=== PATIENT | female | born 1925 | race Caucasian/White ===

== ENCOUNTER 2016-08-05 02:16 | Inpatient (IN) | payer MEDICARE, OTHER ==
[2016-08-05] MEDS ORDERED: Sodium Chloride 0.9% 10 ML Syringe FLUSH PRN (02:32)
[2016-08-05] MEDS ORDERED: Ondansetron 4 MG/2 ML SDV IVPUSH ONE (02:32)
[2016-08-05] MEDS ORDERED: HYDROmorphone 0.5 MG/0.5 ML Syringe IVPUSH ONE ×2 (02:34→06:21)
[2016-08-05] MEDS: Sodium Chloride 0.9% 1,000 ML IV SCH ×2 (02:48→11:34)
--- NOTE | 2016-08-05 03:46 | EDM.PDOC ---
ED HPI GI/ABDOMINAL - General Chief Complaint: Abdominal Pain Stated Complaint: [facility] Time Seen by Provider: 08/05/16 02:19 Source of Information: Reports: Patient, EMS, Family, care home records History Limitations: Reports: No limitations - History of Present Illness INITIAL COMMENTS - FREE TEXT/NARRATIVE: The patient presents with abdominal pain that started about 3 days ago. It comes and it goes. She has some nausea with it. It is on the right side. She has no diarrhea. She has no dysuria. She has no fever, chills, cough, congestion, chest pain or shortness of breath. The patient had a small bowel obstruction and perforation that did not require surgery in March of last year. Timing/Duration: Reports: Day(s): (3) Location: [facility] Quality: Reports: stabbing Severity: moderate Context: Denies: sick contact, bad/questionable food, out of country travel, recent surgery, recent trauma, lifting, activity/exercise Associated Symptoms (-Female): Reports: nausea/vomiting. Denies: chest pain, diarrhea, fever/chills, loss of appetite - Related Data Allergies/ADRs: Allergies Allergy/AdvReac Type Severity Reaction Status Date / Time cephalexin [Cephalexin] Allergy UNKNOWN Verified 04/22/16 14:46 enalapril [Enalapril] Allergy Rash Verified 04/22/16 14:46 nepafenac [From Nevanac] Allergy Agitation Verified 04/24/16 12:38 pioglitazone Allergy Rash Verified 04/22/16 14:46 ANTIVENOM, [place] Allergy Hives Uncoded 04/15/16 03:28 Home Meds: Home Meds Acetaminophen [Tylenol] 650 mg PO Q4H PRN 04/22/16 [History] Cranberry 405 mg PO BID 04/22/16 [History] Docusate Sodium/Sennosides [Senna Plus] 2 tab PO DAILY PRN 04/22/16 [History] Escitalopram Oxalate 5 mg PO DAILY 04/22/16 [History] Fluticasone Propionate [Flonase Allergy Relief] 1 spray INH DAILY 04/22/16 [ History] Furosemide [Lasix] 40 mg PO DAILY 04/22/16 [History] Furosemide [Lasix] 80 mg PO DAILY 04/22/16 [History] Insulin Glargine,Hum.Rec.Anlog [Lantus Solostar] 5 units SUBCUT PCDINNER [History] Insulin Glargine,Hum.Rec.Anlog [Lantus Solostar] 18 units SUBCUT DAILY 04/22/16 [History] Isosorbide Mononitrate [Isosorbide Mononitrate ER] 60 mg PO BID 04/22/16 [ History] Lactobacillus Acidophilus [Acidophilus] 1 cap PO DAILY 04/22/16 [History] Levofloxacin [Levaquin] 750 mg PO DAILY 04/22/16 [History] Losartan [Cozaar] 100 mg PO DAILY 04/22/16 [History] Mag Hydrox/Al Hydrox/Simeth [Alum-Mag Hydroxide-Simeth Liq] 10 ml PO BID [History] Magnesium Oxide 400 mg PO BID 04/22/16 [History] Metoprolol Succinate 100 mg PO DAILY 04/22/16 [History] Nitroglycerin [Nitrostat] 0.4 mg SL Q5M PRN 04/22/16 [History] Ondansetron [Zofran] 8 mg PO TID PRN 04/22/16 [History] Simvastatin [Zocor] 20 mg PO DAILY 04/22/16 [History] Spironolactone [Aldactone] 25 mg PO DAILY 04/22/16 [History] metroNIDAZOLE [Flagyl] 500 mg PO Q8H 04/22/16 [History] Clopidogrel [Plavix] 75 mg PO DAILY #90 tablet 04/24/16 [Rx] Docusate Sodium/Sennosides [Senna Plus] 2 tab PO DAILY PRN 04/24/16 [History] Pantoprazole Sodium [Protonix] 40 mg PO DAILY #90 tablet.dr 04/24/16 [Rx] Apixaban [Eliquis] 5 mg PO BID #60 tablet 04/26/16 [Rx] Past Medical History HEENT History: Reports: Hard of hearing, Impaired vision Cardiovascular History: Reports: CAD, Heart Failure, High cholesterol, Hypertension, [place] Gastrointestinal History: Reports: GERD, PUD Genitourinary History: Reports: Neurogenic bladder, Retention, urinary 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: Musculoskeletal History: Reports: Osteoarthritis Psychiatric History: Reports: Anxiety, Depression Endocrine/Metabolic History: Reports: Diabetes, type II - Infectious Disease History Infectious Disease History: Reports: Influenza, Measles, Mumps - Past Surgical History HEENT Surgical History: Reports: Cataract surgery GI Surgical History: Reports: Appendectomy Female Surgical History: Reports: Hysterectomy Social & Family History - Family History Family Medical History: Noncontributory Musculoskeletal: Reports: Gout Endocrine/Metabolic: Reports: Diabetes, type I - Tobacco Use Smoking Status *Q: Former Smoker Years of Tobacco use: 30 Packs/Tins Daily: 0.5 Used Tobacco, but Quit: Yes Month Tobacco Last Used: 1975 Second Hand Smoke Exposure: No - Caffeine Use Caffeine Use: Reports: Coffee - Recreational Drug Use Recreational Drug Use: No - Living Situation & Occupation Living situation: Reports: , with spouse, extended care facility ( care home) Occupation: retired ED ROS GENERAL - Review of Systems Review Of Systems: See Below Constitutional: Reports: no symptoms HEENT: Reports: No symptoms Respiratory: Reports: No Symptoms Cardiovascular: Reports: No symptoms Endocrine: Reports: no symptoms GI/Abdominal: Reports: Abdominal pain, Nausea : Reports: no symptoms Musculoskeletal: Reports: no symptoms Skin: Reports: no symptoms Neurological: Reports: No Symptoms ED EXAM, GI/ABD - Physical Exam Exam: See Below Exam Limited By: No limitations General Appearance: alert, no apparent distress Ears: normal external exam Nose: normal inspection Head: atraumatic, normocephalic Neck: normal inspection Respiratory/Chest: no respiratory distress, lungs clear, normal breath sounds Cardiovascular: regular rate, rhythm, no edema, systolic murmur GI/Abdominal: soft, no organomegaly, no mass, tenderness (Moderate to the right lower abdomen) Back Exam: normal inspection Extremities: normal inspection Neurological: alert, oriented, no motor/sensory deficits Course - Vital Signs Last Recorded V/S: Last Vital Signs Temp 97.1 F 08/05/16 02:24 Pulse 93 08/05/16 02:24 Resp 16 08/05/16 02:24 BP 106/87 08/05/16 02:24 Pulse Ox 97 08/05/16 02:24 - Orders/Labs/Meds Orders: Active Orders 24 hr Category Date Time Status Peripheral IV Care [RC] . DIRECTED Care 08/05/16 02:33 Active Abdomen Pelvis w Cont [CT] Stat Exams 08/05/16 02:32 Taken UA W/MICROSCOPIC [URIN] Stat Lab 08/05/16 02:32 Uncollected Sodium Chloride 0.9% [Normal Saline] 1,000 ml Med 08/05/16 02:45 Active IV ASDIRECTED Sodium Chloride 0.9% [Saline Flush] Med 08/05/16 02:32 Active 10 ml FLUSH ASDIRECTED PRN ED Antiemetic Medication Reflex [OM.PC] Stat Oth 08/05/16 02:33 Ordered Peripheral IV Insertion Adult [OM.PC] Stat Ot 08/05/16 02:32 Ordered Medication Orders Sodium Chloride (Normal Saline) 1,000 mls @ 125 mls/hr IV ASDIRECTED MORIS Last Admin: 08/05/16 02:48 Dose: 125 mls/hr Sodium Chloride (Saline Flush) 10 ml FLUSH ASDIRECTED PRN PRN Reason: Keep Vein Open Last Admin: 08/05/16 02:49 Dose: 10 ml Labs: Laboratory Tests 08/05/16 08/05/16 Range/Units 02:35 02:35 WBC 23.51 H (3.98-10.04) K/mm3 RBC 4.07 (3.98-5.22) M/mm3 Hgb 13.2 (11.2-15.7) gm/L Hct 39.8 (34.1-44.9) % MCV 97.8 H (79.4-94.8) fl MCH 32.4 H (25.6-32.2) pg MCHC 33.2 (32.2-35.5) g/dl RDW Std Deviation 49.2 H (36.4-46.3) fL Plt Count 199 (182-369) K/mm3 MPV 9.6 (9.4-12.3) fl Neut % (Auto) 84.6 H (34.0-71.1) % Lymph % (Auto) 10.9 L (19.3-51.7) % Harney % (Auto) 4.2 L (4.7-12.5) % Eos % (Auto) 0 L (0.7-5.8) Baso % (Auto) 0.0 L (0.1-1.2) % Neut # 19.89 H (1.56-6.13) K/mm3 Lymph # 2.57 (1.18-3.74) K/mm3 Harney # 0.98 H (0.24-0.36) K/mm3 Eos # 0.00 L (0.04-0.36) K/mm3 Baso # 0.01 (0.01-0.08) K/mm3 Manual Slide Review Abnormal smear Sodium 135 L (136-145) mEq/L Potassium 4.4 (3.5-5.1) mEq/L Chloride 96 L (98-107) mEq/L Carbon Dioxide 29 (21-32) mEq/L Anion Gap 14.4 (5-15) BUN 46 H (7-18) mg/dL Creatinine 1.6 H (0.55-1.02) mg/dL Est Cr Clr Drug Dosing 24.05 mL/min Estimated GFR (MDRD) 30 (>60) mL/min BUN/Creatinine Ratio 28.8 H (14-18) Glucose 228 H (83-115) mg/dL Calcium 10.1 (8.5-10.1) mg/dL Total Bilirubin 1.0 (0.2-1.0) mg/dL AST 21 (15-37) U/L ALT 21 (14-59) U/L Alkaline Phosphatase 142 H (46-116) U/L Total Protein 7.9 (6.4-8.2) g/dl Albumin 3.7 (3.4-5.0) g/dl Globulin 4.2 gm/dL Albumin/Globulin Ratio 0.9 L (1-2) Lipase 54 L (73-393) U/L Meds: Medications Generic Name Dose Route Start Last Admin Trade Name Freq PRN Reason Stop Dose Admin Sodium Chloride 1,000 mls @ 125 mls/hr 08/05/16 02:45 08/05/16 02:48 Normal Saline IV 125 mls/hr ASDIRECTED MORIS Administration Sodium Chloride 10 ml 08/05/16 02:32 08/05/16 02:49 Saline Flush FLUSH 10 ml ASDIRECTED PRN Administration Keep Vein Open Discontinued Medications Generic Name Dose Route Start Last Admin Trade Name Freq PRN Reason Stop Dose Admin Diatrizoate Meglum/Diatrizoate Sod 90 ml 08/05/16 04:02 08/05/16 04:32 Gastrografin 37% PO 08/05/16 04:03 90 ml ONETIME ONE Administration Hydromorphone HCl 0.5 mg 08/05/16 02:34 08/05/16 02:47 Dilaudid IVPUSH 08/05/16 02:35 0.5 mg ONETIME ONE Administration Sodium Chloride 70 mls @ 2 mls/sec 08/05/16 04:02 Normal Saline IV 08/05/16 04:03 ASDIRECTED ONE Iopamidol 100 ml 08/05/16 04:02 08/05/16 04:32 Isovue-370 (76%) IVPUSH 08/05/16 04:03 100 ml ONETIME ONE Administration Ondansetron HCl 4 mg 08/05/16 02:32 08/05/16 02:48 Zofran IVPUSH 08/05/16 02:33 4 mg ONETIME ONE Administration - Re-Assessments/Exams Free Text/Narrative Re-Assessment/Exam: 08/05/16 03:46 I ordered an IV NS, zofran 4mg IV, dilaudid 0.5mg IV, labs, UA and CT of her abdomen and pelvis. 08/05/16 06:05 Her WBC is very elevated at 23.51. Her Na is a little low at 135. Her creatinine is elevated at 1.6. Her glucose is elevated at 228. Her alk phos is elevated at 142. Her lipase is low at 54. The radiologist from [email or web address] called me to discuss the CT. There is a long segment of small bowel wall thickening within the lower abdomen similar pattern as on prior CT with associated pneumatosis and extraluminal gas consistent with perforation. Inflamed and thickened small bowel segments results in proximal partial small bowel obstruction. She had similar findings in March and she was admitted. It was determined that she may not survive the surgery. She has aortic stenosis and a few other health problems. She does not want surgery and neither does the family. I talked to her again about it and she still does not want the surgery. I will order levaquin and flagyl and get her admitted. I will call Dr Schaffer here shortly. Departure - Departure Time of Disposition: 18:15 Disposition: Admitted As Inpatient 67 Condition: serious Clinical Impression: Aortic stenosis, severe, Perforated small intestine, Partial small bowel obstruction Forms: ED Department Discharge - My Orders Last 24 Hours: My Active Orders 08/05/16 02:32 Abdomen Pelvis w Cont [CT] Stat UA W/MICROSCOPIC [URIN] Stat Sodium Chloride 0.9% [Saline Flush] 10 ml FLUSH ASDIRECTED PRN Peripheral IV Insertion Adult [OM.PC] Stat 08/05/16 02:33 Peripheral IV Care [RC] . DIRECTED ED Antiemetic Medication Reflex [OM.PC] Stat 08/05/16 02:45 Sodium Chloride 0.9% [Normal Saline] 1,000 ml IV ASDIRECTED - Assessment/Plan Last 24 Hours: My Active Orders 08/05/16 02:32 Abdomen Pelvis w Cont [CT] Stat UA W/MICROSCOPIC [URIN] Stat Sodium Chloride 0.9% [Saline Flush] 10 ml FLUSH ASDIRECTED PRN Peripheral IV Insertion Adult [OM.PC] Stat 08/05/16 02:33 Peripheral IV Care [RC] . DIRECTED ED Antiemetic Medication Reflex [OM.PC] Stat 08/05/16 02:45 Sodium Chloride 0.9% [Normal Saline] 1,000 ml IV ASDIRECTED
[2016-08-05] MEDS ORDERED: Diatrizoate Meglumine/Diatrizoate Sodium 37% 120 ML Bottle PO ONE ×2 (04:02→05:38)
[2016-08-05] MEDS ORDERED: Iopamidol 755 Mg/ML 100 ML Bottle IVPUSH ONE (04:02)
[2016-08-05] MEDS ORDERED: Iopamidol 612 MG/ML 150 ML Bottle IVPUSH ONE (05:38)
[2016-08-05] MEDS ORDERED: metroNIDAZOLE/Normal Saline 500 MG in Premix Bag 1 BAG IV ONE (06:12)
[2016-08-05] MEDS ORDERED: Levofloxacin/Dextrose 5%-Water 750 MG in Premix Bag 1 BAG IV ONE ×2 (06:13→10:00)
--- NOTE | 2016-08-05 08:01 | CT ---
CT abdomen and pelvis Technique: Multiple axial sections were obtained from above the dome of the diaphragm inferiorly through the pubic symphysis. Intravenous and oral contrast was utilized. Delayed images were also obtained through the abdomen and pelvis. Comparison: Previous CT abdomen and pelvis exam of 04/15/16. Findings: Fatty infiltration noted within the liver. Interstitial fibrosis noted within both lung bases. Spleen appears within normal limits. Layering sludge/gallstones are felt to be present within the gallbladder. Adrenal glands show no nodule. Kidneys show contrast enhancement. Multiple cysts are seen within both kidneys. Several nonobstructing calculi are noted within the left kidney. Aorta shows no aneurysmal dilatation. No retroperitoneal adenopathy is identified. Areas of bowel wall thickening are seen within the distal ileum and within the mid ileum. Some areas of bowel wall thickening were seen on prior study but findings have increased in prominence. Small amount of bowel wall air is seen compatible with pneumatosis intestinalis. No pelvic abnormality is appreciated. Mild increased stool noted within the colon. Mildly dilated proximal small bowel secondary to the ileal process. Delayed images show show contrast within the ureters and bladder. Impression: 1. Areas of prominent bowel wall thickening as well as some areas of narrowing within the mid ileum and distal ileum. Small amount of pneumatosis intestinalis is seen. Some areas of bowel wall thickening seen on prior study but findings have worsened. Findings could represent worsening inflammatory bowel disease as well as thickening from focal ischemia. Lymphoma can cause a similar appearance. This ileal process causes proximal small bowel dilatation. 2. Other findings which are felt to be incidental as described above. Agree with preliminary report issued by [employer] (preliminary report dictated on 08/05/16, 6:49 AM Central Time) Diagnostic code #5
--- NOTE | 2016-08-05 09:15 | PCM.HP ---
H&P History of Present Illness - General Date of Service: 08/05/16 Admit Problem/Dx: Admission Diagnosis/Problem Admission Diagnosis/Problem Small bowel obstruction Source of Information: Patient, Family, Old records, Provider, RN notes reviewed History Limitations: Reports: No limitations - History of Present Illness Initial Comments - Free Text/Narative: This is an 89 yo elderly white female with significant cardiac hx who comes in with a 3 day hx/o of RLQ pain associated with nausea and decreased appetite. She denies any sick contact, unusual drinks or food, and no recent trauma or surgery. Patient carries a hx/o SBO with focal perforation. She was admitted back in March for similar presentation. At that she was managed medically only. Her initial work up in ED shows a CBS significant for WBC of 23.51 with Neutrophils of 19.89. Her chemistry is remarkable for Na of 135, Cl of 96, BUN 46, Cr of 1.6, BS of 228, Alk PHos 142, and Lipase 54. Her UA shows mild UTI. Her imaging study shows small bowel wall thickening within the lower abdomen similar pattern as prior CT scan with associated pneumatosis intestinalis and extraluminal gas consistent with perforation. Patient was being admitted for medical management of SBO with focal perforation. She is DNR/DNI. Bilateral Lower Abdomen Pain Score (Numeric/FACES): 7 - Related Data Allergies/Adverse Reactions: Allergies Allergy/AdvReac Type Severity Reaction Status Date / Time cephalexin [Cephalexin] Allergy UNKNOWN Verified 08/05/16 06:27 enalapril [Enalapril] Allergy Rash Verified 08/05/16 06:27 pioglitazone Allergy Rash Verified 08/05/16 06:27 nepafenac [From Nevanac] AdvReac Agitation Verified 08/05/16 14:13 ANTIVENOM, [place] Allergy Hives Uncoded 08/05/16 06:27 Home Medications: Home Meds Escitalopram Oxalate 5 mg PO DAILY 04/22/16 [History] Fluticasone Propionate [Flonase Allergy Relief] 1 spray INH DAILY 04/22/16 [ History] Furosemide [Lasix] 40 mg PO DAILY 04/22/16 [History] Furosemide [Lasix] 80 mg PO DAILY 04/22/16 [History] Isosorbide Mononitrate [Isosorbide Mononitrate ER] 60 mg PO BID 04/22/16 [ History] Losartan [Cozaar] 100 mg PO DAILY 04/22/16 [History] Mag Hydrox/Al Hydrox/Simeth [Alum-Mag Hydroxide-Simeth Liq] 10 ml PO BID [History] Metoprolol Succinate 100 mg PO DAILY 04/22/16 [History] Simvastatin [Zocor] 20 mg PO DAILY 04/22/16 [History] Spironolactone [Aldactone] 25 mg PO DAILY 04/22/16 [History] Pantoprazole Sodium [Protonix] 40 mg PO DAILY #90 tablet. 04/24/16 [Rx] Insulin Glarg,Human.Rec.Analog [LantUS Solostar] 15 units SUBCUT BID 08/05/16 [ History] Past Medical History HEENT History: Reports: Hard of hearing, Impaired vision Cardiovascular History: Reports: CAD, Heart Failure, High cholesterol, Hypertension, [place] Gastrointestinal History: Reports: GERD, PUD Genitourinary History: Reports: Neurogenic bladder, Retention, urinary [employer] SUPERVISOR History: Reports: Musculoskeletal History: Reports: Osteoarthritis Psychiatric History: Reports: Anxiety, Depression Endocrine/Metabolic History: Reports: Diabetes, type II - Infectious Disease History Infectious Disease History: Reports: Influenza, Measles, Mumps - Past Surgical History HEENT Surgical History: Reports: Cataract surgery GI Surgical History: Reports: Appendectomy Female Surgical History: Reports: Hysterectomy Social & Family History - Family History Family Medical History: Noncontributory Musculoskeletal: Reports: Gout Endocrine/Metabolic: Reports: Diabetes, type I - Tobacco Use Smoking Status *Q: Former Smoker Years of Tobacco use: 30 Packs/Tins Daily: 0.5 Used Tobacco, but Quit: Yes Month Tobacco Last Used: 1975 Second Hand Smoke Exposure: No - Caffeine Use Caffeine Use: Reports: Coffee - Recreational Drug Use Recreational Drug Use: No - Living Situation & Occupation Living situation: Reports: , with spouse, extended care facility ( intermediate) Occupation: retired H&P Review of Systems - Review of Systems: Review Of Systems: See Below General: Reports: decreased appetite. Denies: fever, chills, malaise, weakness HEENT: Reports: no symptoms Pulmonary: Denies: Shortness of Breath Cardiovascular: Denies: chest pain, palpitations, dyspnea on exertion Gastrointestinal: Reports: Abdominal pain, Nausea Genitourinary: Reports: retention Musculoskeletal: Reports: no symptoms Skin: Denies: cyanosis, pallor, rash, erythema Psychiatric: Denies: depression, anxiety, hallucinations Neurological: Denies: Confusion Hematologic/Lymphatic: Reports: no symptoms Immunologic: Reports: no symptoms Exam - Exam Exam: See Below - Vital Signs Vital Signs: Last Vital Signs Temp 36.6 C 08/05/16 07:47 Pulse 90 08/05/16 07:47 Resp 13 08/05/16 07:47 BP 131/70 08/05/16 07:47 Pulse Ox 97 08/05/16 07:47 Weight: 71.033 kg - Exam General: alert, cooperative. No: mild distress HEENT: Conjunctiva clear, EOMI, Mucosa moist & pink, Nares patent, Normal nasal septum, Posterior pharynx clear, PERRLA. No: Hearing intact Neck: supple, trachea midline, 2+ carotid pulse wo bruit Lungs: Normal respiratory effort, Decreased breath sounds Cardiovascular: regular rate, regular rhythm, systolic murmur Abdomen: normal bowel sounds, soft, tenderness. No: organomegaly, peritoneal signs, distention, guarding, rigidity, rebound (Female) Exam: Deferred Rectal (Female) Exam: Deferred Back Exam: normal inspection, decreased range of motion Extremities: normal inspection, normal pulses. No: clubbing, cyanosis, calf tenderness, edema Peripheral Pulses: 2+: dorsalis pedis (L), dorsalis pedis (R) Skin: warm, dry, intact Neuro Extensive - Mental Status: oriented x3, normal cognition, memory intact Neuro Extensive - Motor, Sensory, Reflexes: CN II-XII intact (limited but fairly intact) Psychiatric: alert, normal affect, normal mood - Patient Data Result Diagrams: 08/05/16 02:35 08/05/16 02:35 *Q Meaningful Use (ADM) - VTE *Q VTE Criteria *Q: - Stroke *Q Stroke Criteria *Q: - AMI *Q AMI Criteria *Q: Problem List Initiated/Reviewed/Updated: Yes Orders Last 24hrs: Medication Orders Sodium Chloride (Normal Saline) 1,000 mls @ 125 mls/hr IV ASDIRECTED MORIS Last Admin: 08/05/16 02:48 Dose: 125 mls/hr Sodium Chloride (Saline Flush) 10 ml FLUSH ASDIRECTED PRN PRN Reason: Keep Vein Open Last Admin: 08/05/16 02:49 Dose: 10 ml Assessment/Plan Comment:: Assessment/Plan: Acute: Partial SBO - Not a good surgical candidate given her advanced age and co-morbid conditions (severe aortic stenosis alone puts her at very high risk for cardiac event/complications) - Son was informed about her guarded condition - Bowel rest, supportive care and IV anti-biotic - Medical management only per family Enteritis With Focal Perforation (pneumatosis intestinalis) - Medical management only as above Fatty Liver on CT scan - Dietary consult - [facility] Constipation - Increased stool in colon - Bowel prep Mild UTI - Risk Factor: Urinary Retention/Neurogenic Bladder - On IV antibiotic - UA Cx/Sx Leukocytosis - WBC 23.51K - 2/ above - Treat underlying cause Chronic: HLD HTN CAD HF With Reduced EF 20-25% w/ Severe Aortic Stenosis and RWMA CKD Stage 3 Severe Cardiomyopathy/NYHA 3 GERD/PUD DM2, diet controlled Urinary Retention/Neurogenic Bladder OA Anxiety/Depression Plan: Admit to ICU Routine AM Labs Resume Home Meds NPO for now except ice chips, sips of water and oral meds PT/OT consult Fall Precautions SW/CM for d/c planning Code status: DNR/DNI Additional orders as above
[2016-08-05] MEDS ORDERED: Sodium Chloride 0.9% 1,000 ML IV SCH (10:15)
[2016-08-05] MEDS ORDERED: HYDROmorphone 0.5 MG/0.5 ML Syringe IVPUSH PRN (13:49)
[2016-08-05] MEDS ORDERED: Promethazine 12.5 MG in Sodium Chloride 0.9% 50 ML IV PRN (13:49)
[2016-08-05] MEDS ORDERED: LORazepam 2 MG/ML MDV IV PRN (13:49)
[2016-08-05] MEDS ORDERED: Acetaminophen/HYDROcodone 325-5 MG Tab PO PRN (13:49)
[2016-08-05] MEDS ORDERED: Acetaminophen 325 MG Tab PO PRN (13:49)
[2016-08-05] MEDS ORDERED: Ondansetron 4 MG/2 ML SDV IV PRN (13:49)
[2016-08-05] MEDS: metroNIDAZOLE/Normal Saline 500 MG in Premix Bag 1 BAG IV SCH ×2 (15:31→22:09)
[2016-08-05] MEDS ORDERED: 50% Dextrose in Water 50 ML Syringe IVPUSH PRN (17:14)
[2016-08-05] MEDS: Insulin Aspart 100 Units/ML 3 ML Pen SUBCUT SCH ×2 (17:27→22:32)
[2016-08-05] MEDS: Dextrose 5%-0.45% NaCl 1,000 ML IV SCH (19:39)
[2016-08-05] MEDS: Pantoprazole 40 MG Vial IV SCH (22:09)
[2016-08-05] MEDS: HYDROmorphone 0.5 MG/0.5 ML Syringe IVPUSH PRN (23:20)
[2016-08-06] MEDS: Ondansetron 4 MG/2 ML SDV IVPUSH PRN (04:05)
[2016-08-06] MEDS: Dextrose 5%-0.45% NaCl 1,000 ML IV SCH ×2 (04:28→13:08)
[2016-08-06] MEDS: Insulin Aspart 100 Units/ML 3 ML Pen SUBCUT SCH ×4 (06:09→23:35)
[2016-08-06] MEDS: metroNIDAZOLE/Normal Saline 500 MG in Premix Bag 1 BAG IV SCH ×3 (06:09→23:14)
[2016-08-06] MEDS: Pantoprazole 40 MG Vial IV SCH ×2 (09:01→23:14)
[2016-08-06] MEDS: HYDROmorphone 0.5 MG/0.5 ML Syringe IVPUSH PRN (09:01)
--- NOTE | 2016-08-06 10:19 | PCM.PN ---
- General Info Date of Service: 08/06/16 Admission Dx/Problem (Free Text): Admission Diagnosis/Problem Admission Diagnosis/Problem Small bowel obstruction Subjective Update: Follow up Functional Status: Reports: pain controlled, urinating, new symptoms (loose stool x 1) Pain Score: 5 - Review of Systems General: Denies: Fever, Weakness, Fatigue, Malaise, Chills HEENT: Reports: no symptoms Pulmonary: Denies: shortness of breath Cardiovascular: Denies: Chest Pain Gastrointestinal: Reports: Abdominal pain. Denies: Nausea, Vomiting Genitourinary: Reports: no symptoms Musculoskeletal: Reports: no symptoms Skin: Denies: cyanosis, pruritis, rash Psychiatric: Denies: depression, anxiety Systems Review Comment:: No overnight or acute issues. Pain is controlled. WBC is up from 23K. She remains afebrile. - Patient Data Vitals - most recent: Last Vital Signs Temp 36.7 C 08/06/16 08:00 Pulse 100 08/05/16 18:00 Resp 13 08/06/16 08:00 BP 108/54 L 08/06/16 08:00 Pulse Ox 95 08/06/16 08:00 Weight - most recent: 72.167 kg I&O - last 24 hours: Intake & Output 08/05/16 08/06/16 08/06/16 22:59 06:59 14:59 Intake Total 1054 1517 Output Total 300 160 Balance 754 1357 Lab Results last 24 hrs: Laboratory Results - last 24 hr 08/05/16 08/05/16 08/05/16 Range/Units 16:50 17:19 22:19 WBC (3.98-10.04) K/mm3 RBC (3.98-5.22) M/mm3 Hgb (11.2-15.7) gm/L Hct (34.1-44.9) % MCV (79.4-94.8) fl MCH (25.6-32.2) pg MCHC (32.2-35.5) g/dl RDW Std Deviation (36.4-46.3) fL Plt Count (182-369) K/mm3 MPV (9.4-12.3) fl Neut % (Auto) (34.0-71.1) % Lymph % (Auto) (19.3-51.7) % [place] % (Auto) (4.7-12.5) % Eos % (Auto) (0.7-5.8) Baso % (Auto) (0.1-1.2) % Neut # (1.56-6.13) K/mm3 Lymph # (1.18-3.74) K/mm3 [place] # (0.24-0.36) K/mm3 Eos # (0.04-0.36) K/mm3 Baso # (0.01-0.08) K/mm3 Manual Slide Review Sodium (136-145) mEq/L Potassium (3.5-5.1) mEq/L Chloride (98-107) mEq/L Carbon Dioxide (21-32) mEq/L Anion Gap (5-15) BUN (7-18) mg/dL Creatinine (0.55-1.02) mg/dL Est Cr Clr Drug Dosing Estimated GFR (MDRD) (>60) mL/min BUN/Creatinine Ratio (14-18) Glucose (83-115) mg/dL POC Glucose 136 H 163 H (83-110) mg/dL Calcium (8.5-10.1) mg/dL Magnesium (1.8-2.4) mg/dl C-Reactive Protein (<1.0) mg/dL Urine Color Yellow (Yellow) Urine Appearance Clear (Clear) Urine pH 6.5 (5.0-8.0) Ur Specific [place] 1.015 (1.005-1.030) Urine Protein 1+ H (Negative) Urine Glucose (UA) Negative (Negative) Urine Ketones Negative (Negative) Urine Occult Blood 1+ H (Negative) Urine Nitrite Negative (Negative) Urine Bilirubin Negative (Negative) Urine Urobilinogen 0.2 (0.2-1.0) Ur Leukocyte Esterase 1+ H (Negative) Urine RBC 0-5 (0-5) /hpf Urine WBC 40-50 H (0-5) /hpf Urine WBC Clumps Few (NOT SEEN) /hpf Ur Epithelial Cells 10-20 H (0-5) /hpf Urine Bacteria Moderate H (FEW) /hpf Urine Mucus Few (FEW) /hpf 08/06/16 08/06/16 08/06/16 Range/Units 05:52 05:52 05:52 WBC 24.26 H (3.98-10.04) K/mm3 RBC 3.17 L (3.98-5.22) M/mm3 Hgb 10.4 L (11.2-15.7) gm/L Hct 32.3 L (34.1-44.9) % MCV 101.9 H (79.4-94.8) fl MCH 32.8 H (25.6-32.2) pg MCHC 32.2 (32.2-35.5) g/dl RDW Std Deviation 52.6 H (36.4-46.3) fL Plt Count 151 L (182-369) K/mm3 MPV 10.2 (9.4-12.3) fl Neut % (Auto) 84.0 H (34.0-71.1) % Lymph % (Auto) 11.3 L (19.3-51.7) % [place] % (Auto) 4.2 L (4.7-12.5) % Eos % (Auto) 0 L (0.7-5.8) Baso % (Auto) 0.1 (0.1-1.2) % Neut # 20.39 H (1.56-6.13) K/mm3 Lymph # 2.73 (1.18-3.74) K/mm3 [place] # 1.02 H (0.24-0.36) K/mm3 Eos # 0.01 L (0.04-0.36) K/mm3 Baso # 0.02 (0.01-0.08) K/mm3 Manual Slide Review Abnormal smear Sodium 134 L (136-145) mEq/L Potassium 4.1 (3.5-5.1) mEq/L Chloride 100 (98-107) mEq/L Carbon Dioxide 27 (21-32) mEq/L Anion Gap 11.1 (5-15) BUN 33 H (7-18) mg/dL Creatinine 1.4 H (0.55-1.02) mg/dL Est Cr Clr Drug Dosing TNP Estimated GFR (MDRD) 35 (>60) mL/min BUN/Creatinine Ratio 23.6 H (14-18) Glucose 230 H (83-115) mg/dL POC Glucose 232 H (83-110) mg/dL Calcium 8.8 (8.5-10.1) mg/dL Magnesium 1.7 L (1.8-2.4) mg/dl C-Reactive Protein 21.1 H* (<1.0) mg/dL Urine Color (Yellow) Urine Appearance (Clear) Urine pH (5.0-8.0) Ur Specific [place] (1.005-1.030) Urine Protein (Negative) Urine Glucose (UA) (Negative) Urine Ketones (Negative) Urine Occult Blood (Negative) Urine Nitrite (Negative) Urine Bilirubin (Negative) Urine Urobilinogen (0.2-1.0) Ur Leukocyte Esterase (Negative) Urine RBC (0-5) /hpf Urine WBC (0-5) /hpf Urine WBC Clumps (NOT SEEN) /hpf Ur Epithelial Cells (0-5) /hpf Urine Bacteria (FEW) /hpf Urine Mucus (FEW) /hpf Med Orders - Current: Current Medications Acetaminophen (Tylenol) 650 mg PO Q4H PRN PRN Reason: Pain (Mild 1-3)/fever Acetaminophen/Hydrocodone Bitart ([place] 325-5 Mg) 1 tab PO Q4H PRN PRN Reason: Pain (moderate 4-6) Dextrose/Water (Dextrose 50% In Water) 50 ml IVPUSH ASDIRECTED PRN PRN Reason: Hypoglycemia Enoxaparin Sodium (Lovenox) 30 mg SUBCUT DAILY [facility] Hydromorphone HCl (Dilaudid) 0.5 mg IVPUSH Q1H PRN PRN Reason: Pain Last Admin: 08/06/16 09:01 Dose: 0.5 mg Hydromorphone HCl (Dilaudid) 0.25 mg IVPUSH Q2H PRN PRN Reason: Pain (severe 7-10) Promethazine HCl 12.5 mg/ (Sodium Chloride) 50.5 mls @ 100 mls/hr IV Q6H PRN PRN Reason: Nausea/Vomiting Last Admin: 08/06/16 06:08 Dose: 100 mls/hr Dextrose/Sodium Chloride (Dextrose 5%-1/2 Ns) 1,000 mls @ 125 mls/hr IV ASDIRECTED [facility] Last Admin: 08/06/16 04:28 Dose: 125 mls/hr Levofloxacin/Dextrose 750 mg/ (Premix) 150 mls @ 150 mls/hr IV Q48H [facility] Metronidazole 500 mg/ Premix 100 mls @ 100 mls/hr IV Q8H [facility] Last Admin: 08/06/16 06:09 Dose: 100 mls/hr Piperacillin Sod/Tazobactam (Sod 4.5 gm/ Sodium Chloride) 100 mls @ 33.333 mls/ hr IV Q6H [facility] Insulin Aspart (Novolog) 0 unit SUBCUT QIDACANDBED [place] PRN Reason: Protocol Last Admin: 08/06/16 06:09 Dose: 2 unit Isosorbide Mononitrate (Imdur) 60 mg PO BID [facility] Lorazepam (Ativan) 0.5 mg IV Q6H PRN PRN Reason: Anxiety Losartan Potassium (Cozaar) 100 mg PO DAILY [facility] Metoprolol Succinate (Toprol Xl) 100 mg PO DAILY [facility] Non-Formulary Medication (Alum Hydrox/Mag Hydrox/Simeth) 10 ml PO BID [facility] Non-Formulary Medication (Escitalopram Oxalate [Escitalopram Oxalate]) 5 mg PO DAILY [facility] Non-Formulary Medication (Fluticasone Propionate [Flonase Allergy Relief]) 1 spray INH DAILY [facility] Ondansetron HCl (Zofran) 4 mg IVPUSH Q6HR PRN PRN Reason: NAUSEA Last Admin: 08/06/16 04:05 Dose: 4 mg Pantoprazole Sodium (Protonix Iv) 40 mg IV Q12HR [facility] Last Admin: 08/06/16 09:01 Dose: 40 mg Pantoprazole Sodium (Protonix) 40 mg PO DAILY [facility] Simvastatin (Zocor) 20 mg PO DAILY [facility] Sodium Chloride (Saline Flush) 10 ml FLUSH ASDIRECTED PRN PRN Reason: Keep Vein Open Last Admin: 08/05/16 02:49 Dose: 10 ml Spironolactone (Aldactone) 25 mg PO DAILY [facility] Discontinued Medications Diatrizoate Meglum/Diatrizoate Sod (Gastrografin 37%) 90 ml PO ONETIME ONE Stop: 08/05/16 04:03 Last Admin: 08/05/16 04:32 Dose: 90 ml Hydromorphone HCl (Dilaudid) 0.5 mg IVPUSH ONETIME ONE Stop: 08/05/16 02:35 Last Admin: 08/05/16 02:47 Dose: 0.5 mg Hydromorphone HCl (Dilaudid) 0.5 mg IVPUSH ONETIME ONE Stop: 08/05/16 06:22 Last Admin: 08/05/16 07:04 Dose: 0.5 mg Sodium Chloride (Normal Saline) 1,000 mls @ 125 mls/hr IV ASDIRECTED [facility] Last Admin: 08/05/16 11:34 Dose: 125 mls/hr Sodium Chloride (Normal Saline) 70 mls @ 2 mls/sec IV ASDIRECTED ONE Stop: 08/05/16 04:03 Levofloxacin/Dextrose 750 mg/ (Premix) 150 mls @ 100 mls/hr IV ONETIME ONE Stop: 08/05/16 07:42 Last Admin: 08/05/16 13:44 Dose: Not Given Metronidazole 500 mg/ Premix 100 mls @ 100 mls/hr IV ONETIME ONE Stop: 08/05/16 07:11 Last Admin: 08/05/16 06:41 Dose: 100 mls/hr Levofloxacin/Dextrose 750 mg/ (Premix) 150 mls @ 100 mls/hr IV ONETIME ONE Stop: 08/05/16 11:29 Last Admin: 08/05/16 10:20 Dose: 100 mls/hr Sodium Chloride (Normal Saline) 1,000 mls @ 125 mls/hr IV ASDIRECTED [facility] Iopamidol (Isovue-370 (76%)) 100 ml IVPUSH ONETIME ONE Stop: 08/05/16 04:03 Last Admin: 08/05/16 04:32 Dose: 100 ml Ondansetron HCl (Zofran) 4 mg IVPUSH ONETIME ONE Stop: 08/05/16 02:33 Last Admin: 08/05/16 02:48 Dose: 4 mg Ondansetron HCl (Zofran) 4 mg IV Q6H PRN PRN Reason: Nausea/Vomiting - Exam General: alert, cooperative, no acute distress HEENT: Pupils equal, Pupils reactive, EOMI, Mucous membr. moist/pink Neck: supple, trachea midline, no JVD Lungs: Clear to auscultation, Normal respiratory effort Cardiovascular: Regular Rate, Regular Rhythm, Murmurs Abdomen: bowel sounds present, soft, no tenderness, no distension (Female) Exam: Deferred Back Exam: normal inspection, decreased range of motion Extremities: no edema, normal pulses, no tenderness/swelling, no clubbing, no cyanosis, no calf tenderness Peripheral Pulses: 2+: dorsalis pedis (L), dorsalis pedis (R) Skin: warm, dry, intact Neurological: no new focal deficit Psy/Mental Status: alert, normal affect, normal mood - Problem List Review Problem List Initiated/Reviewed/Updated: Yes - My Orders Last 24 Hours: My Active Orders 08/05/16 10:01 Admission Status [Patient Status] [ADT] Routine 08/05/16 10:05 Bedrest [RC] ASDIRECTED Code Status [Resuscitation Status] Routine 08/05/16 10:07 HYDROmorphone [Dilaudid] 0.5 mg IVPUSH Q1H PRN 08/05/16 10:11 Ondansetron [Zofran] 4 mg IVPUSH Q6HR PRN 08/05/16 12:22 Consult to Occupational Therapy [OT Evaluation and Treatment] [CONS] Routine Consult to Physical Therapy [PT Evaluation and Treatment] [CONS] Routine 08/05/16 13:30 CULTURE MRSA SURVEY [RM] Routine 08/05/16 13:49 Cardiac Monitoring [RC] CONTINUOUS Height and Weight [RC] 04 Intake and Output [RC] 04,16 Oxygen Therapy [RC] PRN Pulse Oximetry [RC] CONTINUOUS Up With Assistance [RC] ASDIRECTED Up ad [place] [RC] ASDIRECTED VTE/DVT Education [RC] PER UNIT ROUTINE Vital Signs [RC] Q4HR Acetaminophen [Tylenol] 650 mg PO Q4H PRN Acetaminophen/HYDROcodone [[place] 325-5 MG] 1 tab PO Q4H PRN HYDROmorphone [Dilaudid] 0.25 mg IVPUSH Q2H PRN LORazepam [Ativan] 0.5 mg IV Q6H PRN Promethazine [Phenergan] 12.5 mg Sodium Chloride 0.9% [Normal Saline] 50 ml IV Q6H 08/05/16 13:51 Consult to Case Management [CONS] Routine Consult to [facility]house Worker [CONS] Routine Consult to Spiritual Care [CONS] Routine 08/05/16 14:00 Dextrose 5%-0.45% NaCl [Dextrose 5%-1/2 NS] 1,000 ml IV ASDIRECTED metroNIDAZOLE/Normal Saline [Flagyl 500 MG in NS 100 ML] 500 mg Premix Bag 1 bag IV Q8H 08/05/16 15:36 Blood Glucose Check, Bedside [RC] QIDACANDBED 08/05/16 17:14 Dextrose 50% in Water 50 ml IVPUSH ASDIRECTED PRN 08/05/16 17:30 Insulin Aspart [NovoLOG] See Protocol SUBCUT QIDACANDBED 08/05/16 21:00 Pantoprazole [Protonix IV] 40 mg IV Q12HR 08/05/16 Dinner NPO [Nothing Per Oral Diet] [DIET] 08/06/16 10:15 Alum Hydrox/Mag Hydrox/Simeth 10 ml PO BID Piperacillin/Tazobactam [Zosyn] 4.5 gm Sodium Chloride 0.9% [Normal Saline] 100 ml IV Q6H 08/06/16 10:17 Transfer Patient (Change bed) [ADT] Routine 08/06/16 21:00 Isosorbide Mononitrate [Imdur] 60 mg PO BID 08/07/16 05:11 BASIC METABOLIC PANEL,BMP [CHEM] AM C-REACTIVE PROTEIN [CHEM] AM CBC WITH AUTO DIFF [HEME] AM MAGNESIUM [CHEM] AM 08/07/16 09:00 Enoxaparin [Lovenox] 30 mg SUBCUT DAILY Escitalopram Oxalate [Escitalopram Oxalate] 5 mg PO DAILY Fluticasone Propionate [Flonase Allergy Relief] 1 spray INH DAILY Losartan [Cozaar] 100 mg PO DAILY Metoprolol Succinate [Toprol XL] 100 mg PO DAILY Pantoprazole [Protonix] 40 mg PO DAILY Simvastatin [Zocor] 20 mg PO DAILY Spironolactone [Aldactone] 25 mg PO DAILY 08/07/16 10:00 Levofloxacin/Dextrose 5%-Water [Levaquin in D5W 750 MG/150 ML] 750 mg Premix Bag 1 bag IV Q48H 08/08/16 05:11 BASIC METABOLIC PANEL,BMP [CHEM] AM C-REACTIVE PROTEIN [CHEM] AM CBC WITH AUTO DIFF [HEME] AM MAGNESIUM [CHEM] AM 08/09/16 05:11 BASIC METABOLIC PANEL,BMP [CHEM] AM C-REACTIVE PROTEIN [CHEM] AM CBC WITH AUTO DIFF [HEME] AM MAGNESIUM [CHEM] AM 08/09/16 07:00 CBC W/O DIFF,HEMOGRAM [HEME] MOTH@0700 08/10/16 05:11 BASIC METABOLIC PANEL,BMP [CHEM] AM C-REACTIVE PROTEIN [CHEM] AM CBC WITH AUTO DIFF [HEME] AM MAGNESIUM [CHEM] AM 08/11/16 05:11 C-REACTIVE PROTEIN [CHEM] AM MAGNESIUM [CHEM] AM 08/12/16 07:00 CBC W/O DIFF,HEMOGRAM [HEME] MOTH@69908/16/16 07:00 CBC W/O DIFF,HEMOGRAM [HEME] MOTH@69908/19/16 07:00 CBC W/O DIFF,HEMOGRAM [HEME] MOTH@69908/23/16 07:00 CBC W/O DIFF,HEMOGRAM [HEME] MOTH@69908/26/16 07:00 CBC W/O DIFF,HEMOGRAM [HEME] MOTH@699 - Plan Plan:: Assessment/Plan: Acute: Partial SBO - Not a good surgical candidate given her advanced age and co-morbid conditions (severe aortic stenosis alone puts her at very high risk for cardiac event/complications) - Son was informed about her guarded condition - Bowel rest, supportive care and IV anti-biotic - Medical management only per family Enteritis With Focal Perforation (pneumatosis intestinalis) - Medical management only as above - WBC is now at 24K - CRP is [address] scan - Dietary consult - [facility] Constipation - Increased stool in colon - Bowel prep Mild UTI - Risk Factor: Urinary Retention/Neurogenic Bladder - On IV antibiotic - UA Cx/Sx Leukocytosis - WBC 23.51K--> 24K - 2/2 above - Treat underlying cause Chronic: HLD HTN CAD HF With Reduced EF 20-25% w/ Severe Aortic Stenosis and RWMA CKD Stage 3 Severe Cardiomyopathy/NYHA 3 GERD/PUD DM2, diet controlled Urinary Retention/Neurogenic Bladder OA Anxiety/Depression Plan: She is clinically stable Transfer to Med-Surg Add IV Zosyn Routine AM Labs NPO for now except ice chips, sips of water and oral meds Continue PT/OT Fall Precautions SW/CM for d/c planning Code status: DNR/DNI Additional orders as above
[2016-08-06] MEDS ORDERED: Piperacillin/Tazobactam 4.5 GM in Sodium Chloride 0.9% 100 ML IV ONE (10:30)
[2016-08-06] MEDS: ALUMINUM HYDROXIDE PO SCH ×2 (10:50→23:14)
[2016-08-06] MEDS: MAGNESIUM HYDROXIDE PO SCH ×2 (10:50→23:14)
[2016-08-06] MEDS: SIMETHICONE PO SCH ×2 (10:50→23:14)
[2016-08-06] MEDS: Piperacillin/Tazobactam 4.5 GM in Sodium Chloride 0.9% 100 ML IV SCH (18:03)
[2016-08-06] MEDS: Isosorbide Mononitrate 60 MG Tab.ER PO SCH (23:14)
--- NOTE | 2016-08-07 01:20 | PCM.PN ---
- General Info Date of Service: 08/07/16 Admission Dx/Problem (Free Text): Admission Diagnosis/Problem Admission Diagnosis/Problem Small bowel obstruction Subjective Update: Follow up Functional Status: Reports: pain controlled, ambulating, urinating. Denies: new symptoms - Review of Systems General: Denies: Fever, Weakness, Fatigue, Malaise, Chills HEENT: Reports: no symptoms Pulmonary: Denies: shortness of breath Cardiovascular: Denies: Chest Pain, Palpitations, Dyspnea on Exertion Gastrointestinal: Reports: Abdominal pain. Denies: Nausea, Vomiting Genitourinary: Reports: no symptoms Musculoskeletal: Reports: no symptoms Skin: Denies: cyanosis, mottled, pallor Neurological: Denies: Confusion, Dizziness, Headache, Seizure, Syncope, Weakness Psychiatric: Denies: depression, anxiety, hallucinations Systems Review Comment:: Patient developed sudden chest pain last night. She received CP protocol treatment with nitro and morphine. However her BP dropped profoundly. She received 500ml of NS bolus but her BP marginally responded. She was placed on dobutamine last given her severe cardiac hx/o (cardiomyopathy). However the pressor induced tachy-arrythmia for which she was put on cardizem drip. With addition of digoxin and discontinuation of dobutamine drip, her rate slowly improved. - Patient Data Vitals - most recent: Last Vital Signs Temp 36.8 C 08/07/16 00:00 Pulse 69 08/07/16 00:00 Resp 16 08/07/16 00:00 BP 90/54 L 08/07/16 00:00 Pulse Ox 97 08/07/16 00:00 Weight - most recent: 72.167 kg I&O - last 24 hours: Intake & Output 08/06/16 08/06/16 08/07/16 14:59 22:59 06:59 Intake Total 0 1343 Balance 0 1343 Lab Results last 24 hrs: Laboratory Results - last 24 hr 08/05/16 08/06/16 08/06/16 Range/Units 17:19 05:52 05:52 WBC 24.26 H (3.98-10.04) K/mm3 RBC 3.17 L (3.98-5.22) M/mm3 Hgb 10.4 L (11.2-15.7) gm/L Hct 32.3 L (34.1-44.9) % MCV 101.9 H (79.4-94.8) fl MCH 32.8 H (25.6-32.2) pg MCHC 32.2 (32.2-35.5) g/dl RDW Std Deviation 52.6 H (36.4-46.3) fL Plt Count 151 L (182-369) K/mm3 MPV 10.2 (9.4-12.3) fl Neut % (Auto) 84.0 H (34.0-71.1) % Lymph % (Auto) 11.3 L (19.3-51.7) % [place] % (Auto) 4.2 L (4.7-12.5) % Eos % (Auto) 0 L (0.7-5.8) Baso % (Auto) 0.1 (0.1-1.2) % Neut # 20.39 H (1.56-6.13) K/mm3 Lymph # 2.73 (1.18-3.74) K/mm3 [place] # 1.02 H (0.24-0.36) K/mm3 Eos # 0.01 L (0.04-0.36) K/mm3 Baso # 0.02 (0.01-0.08) K/mm3 Manual Slide Review Abnormal smear Sodium 134 L (136-145) mEq/L Potassium 4.1 (3.5-5.1) mEq/L Chloride 100 (98-107) mEq/L Carbon Dioxide 27 (21-32) mEq/L Anion Gap 11.1 (5-15) BUN 33 H (7-18) mg/dL Creatinine 1.4 H (0.55-1.02) mg/dL Est Cr Clr Drug Dosing TNP Estimated GFR (MDRD) 35 (>60) mL/min BUN/Creatinine Ratio 23.6 H (14-18) Glucose 230 H (83-115) mg/dL POC Glucose 136 H (83-110) mg/dL Calcium 8.8 (8.5-10.1) mg/dL Magnesium 1.7 L (1.8-2.4) mg/dl C-Reactive Protein 21.1 H* (<1.0) mg/dL 08/06/16 08/06/16 08/06/16 Range/Units 05:52 17:18 23:13 WBC (3.98-10.04) K/mm3 RBC (3.98-5.22) M/mm3 Hgb (11.2-15.7) gm/L Hct (34.1-44.9) % MCV (79.4-94.8) fl MCH (25.6-32.2) pg MCHC (32.2-35.5) g/dl RDW Std Deviation (36.4-46.3) fL Plt Count (182-369) K/mm3 MPV (9.4-12.3) fl Neut % (Auto) (34.0-71.1) % Lymph % (Auto) (19.3-51.7) % [place] % (Auto) (4.7-12.5) % Eos % (Auto) (0.7-5.8) Baso % (Auto) (0.1-1.2) % Neut # (1.56-6.13) K/mm3 Lymph # (1.18-3.74) K/mm3 [place] # (0.24-0.36) K/mm3 Eos # (0.04-0.36) K/mm3 Baso # (0.01-0.08) K/mm3 Manual Slide Review Sodium (136-145) mEq/L Potassium (3.5-5.1) mEq/L Chloride (98-107) mEq/L Carbon Dioxide (21-32) mEq/L Anion Gap (5-15) BUN (7-18) mg/dL Creatinine (0.55-1.02) mg/dL Est Cr Clr Drug Dosing Estimated GFR (MDRD) (>60) mL/min BUN/Creatinine Ratio (14-18) Glucose (83-115) mg/dL POC Glucose 232 H 202 H 157 H (83-110) mg/dL Calcium (8.5-10.1) mg/dL Magnesium (1.8-2.4) mg/dl C-Reactive Protein (<1.0) mg/dL [place] Results last 24 hrs: Microbiology 08/05/16 13:30 MRSA Surveillance Culture - Final Nasal, Left NO MRSA ISOLATED Med Orders - Current: Current Medications Acetaminophen (Tylenol) 650 mg PO Q4H PRN PRN Reason: Pain (Mild 1-3)/fever Acetaminophen/Hydrocodone Bitart ([place] 325-5 Mg) 1 tab PO Q4H PRN PRN Reason: Pain (moderate 4-6) Citalopram Hydrobromide (Celexa) 10 mg PO DAILY [facility] Dextrose/Water (Dextrose 50% In Water) 50 ml IVPUSH ASDIRECTED PRN PRN Reason: Hypoglycemia Enoxaparin Sodium (Lovenox) 30 mg SUBCUT DAILY [facility] Flunisolide (Nasalide Nasal [place]) 0 ml NASBOTH DAILY [facility] Hydromorphone HCl (Dilaudid) 0.5 mg IVPUSH Q1H PRN PRN Reason: Pain Last Admin: 08/06/16 09:01 Dose: 0.5 mg Hydromorphone HCl (Dilaudid) 0.25 mg IVPUSH Q2H PRN PRN Reason: Pain (severe 7-10) Promethazine HCl 12.5 mg/ (Sodium Chloride) 50.5 mls @ 100 mls/hr IV Q6H PRN PRN Reason: Nausea/Vomiting Last Admin: 08/06/16 06:08 Dose: 100 mls/hr Dextrose/Sodium Chloride (Dextrose 5%-1/2 Ns) 1,000 mls @ 125 mls/hr IV ASDIRECTED [facility] Last Admin: 08/06/16 13:08 Dose: 125 mls/hr Levofloxacin/Dextrose 750 mg/ (Premix) 150 mls @ 150 mls/hr IV Q48H [facility] Metronidazole 500 mg/ Premix 100 mls @ 100 mls/hr IV Q8H [facility] Last Admin: 08/06/16 23:14 Dose: 100 mls/hr Piperacillin Sod/Tazobactam (Sod 4.5 gm/ Sodium Chloride) 100 mls @ 25 mls/hr IV Q8H [facility] Last Admin: 08/06/16 18:03 Dose: 25 mls/hr Insulin Aspart (Novolog) 0 unit SUBCUT QIDACANDBED [facility] PRN Reason: Protocol Last Admin: 08/06/16 23:35 Dose: 1 unit Isosorbide Mononitrate (Imdur) 60 mg PO BID [facility] Last Admin: 08/06/16 23:14 Dose: 60 mg Lorazepam (Ativan) 0.5 mg IV Q6H PRN PRN Reason: Anxiety Losartan Potassium (Cozaar) 100 mg PO DAILY [facility] Metoprolol Succinate (Toprol Xl) 100 mg PO DAILY [facility] Ondansetron HCl (Zofran) 4 mg IVPUSH Q6HR PRN PRN Reason: NAUSEA Last Admin: 08/06/16 04:05 Dose: 4 mg Pantoprazole Sodium (Protonix Iv) 40 mg IV Q12HR [facility] Last Admin: 08/06/16 23:14 Dose: 40 mg Pantoprazole Sodium (Protonix) 40 mg PO DAILY [facility] Alum Hydrox/Mag (Hydrox/Simeth 10 Ml) 0 each PO BID [facility] Last Admin: 08/06/16 23:14 Dose: Not Given Simvastatin (Zocor) 20 mg PO DAILY [facility] Sodium Chloride (Saline Flush) 10 ml FLUSH ASDIRECTED PRN PRN Reason: Keep Vein Open Last Admin: 08/05/16 02:49 Dose: 10 ml Spironolactone (Aldactone) 25 mg PO DAILY [facility] Discontinued Medications Diatrizoate Meglum/Diatrizoate Sod (Gastrografin 37%) 90 ml PO ONETIME ONE Stop: 08/05/16 04:03 Last Admin: 08/05/16 04:32 Dose: 90 ml Hydromorphone HCl (Dilaudid) 0.5 mg IVPUSH ONETIME ONE Stop: 08/05/16 02:35 Last Admin: 08/05/16 02:47 Dose: 0.5 mg Hydromorphone HCl (Dilaudid) 0.5 mg IVPUSH ONETIME ONE Stop: 08/05/16 06:22 Last Admin: 08/05/16 07:04 Dose: 0.5 mg Sodium Chloride (Normal Saline) 1,000 mls @ 125 mls/hr IV ASDIRECTED [facility] Last Admin: 08/05/16 11:34 Dose: 125 mls/hr Sodium Chloride (Normal Saline) 70 mls @ 2 mls/sec IV ASDIRECTED ONE Stop: 08/05/16 04:03 Levofloxacin/Dextrose 750 mg/ (Premix) 150 mls @ 100 mls/hr IV ONETIME ONE Stop: 08/05/16 07:42 Last Admin: 08/05/16 13:44 Dose: Not Given Metronidazole 500 mg/ Premix 100 mls @ 100 mls/hr IV ONETIME ONE Stop: 08/05/16 07:11 Last Admin: 08/05/16 06:41 Dose: 100 mls/hr Levofloxacin/Dextrose 750 mg/ (Premix) 150 mls @ 100 mls/hr IV ONETIME ONE Stop: 08/05/16 11:29 Last Admin: 08/05/16 10:20 Dose: 100 mls/hr Sodium Chloride (Normal Saline) 1,000 mls @ 125 mls/hr IV ASDIRECTED [place] Piperacillin Sod/Tazobactam (Sod 4.5 gm/ Sodium Chloride) 100 mls @ 200 mls/hr IV ONETIME ONE Stop: 08/06/16 10:59 Last Admin: 08/06/16 10:55 Dose: 200 mls/hr Iopamidol (Isovue-370 (76%)) 100 ml IVPUSH ONETIME ONE Stop: 08/05/16 04:03 Last Admin: 08/05/16 04:32 Dose: 100 ml Ondansetron HCl (Zofran) 4 mg IVPUSH ONETIME ONE Stop: 08/05/16 02:33 Last Admin: 08/05/16 02:48 Dose: 4 mg Ondansetron HCl (Zofran) 4 mg IV Q6H PRN PRN Reason: Nausea/Vomiting - Exam General: alert, oriented, cooperative, no acute distress HEENT: Pupils equal, Pupils reactive, EOMI, Mucous membr. moist/pink Neck: supple, trachea midline, no JVD, no thyromegaly Lungs: Normal respiratory effort Cardiovascular: Regular Rate, Regular Rhythm Abdomen: bowel sounds present, soft, no distension, tenderness. No: rigidity, rebound, guarding, abnormal bowel sounds (Female) Exam: Deferred Back Exam: normal inspection, decreased range of motion Extremities: no edema, normal pulses, no tenderness/swelling, no clubbing, no cyanosis, no calf tenderness Peripheral Pulses: 2+: dorsalis pedis (L), dorsalis pedis (R) Skin: warm, dry, intact Neurological: no new focal deficit Psy/Mental Status: alert, normal affect, normal mood Physical Findings Comments:: She is alert, awake and comfortable. - Problem List Review Problem List Initiated/Reviewed/Updated: Yes - My Orders Last 24 Hours: My Active Orders 08/06/16 10:00 Patient Status [ADT] Routine 08/06/16 10:15 Patient's Own Medication [Ptom] 0 each PO BID 08/06/16 10:17 Transfer Patient (Change bed) [ADT] Routine 08/06/16 10:54 CULTURE URINE [RM] Routine 08/06/16 18:30 Piperacillin/Tazobactam [Zosyn] 4.5 gm Sodium Chloride 0.9% [Normal Saline] 100 ml IV Q8H 08/06/16 21:00 Isosorbide Mononitrate [Imdur] 60 mg PO BID 08/07/16 05:11 BASIC METABOLIC PANEL,BMP [CHEM] AM C-REACTIVE PROTEIN [CHEM] AM CBC WITH AUTO DIFF [HEME] AM MAGNESIUM [CHEM] AM 08/07/16 09:00 Citalopram [Celexa] 10 mg PO DAILY Enoxaparin [Lovenox] 30 mg SUBCUT DAILY Flunisolide [Nasalide Nasal [place]] 0 ml NASBOTH DAILY Losartan [Cozaar] 100 mg PO DAILY Metoprolol Succinate [Toprol XL] 100 mg PO DAILY Pantoprazole [Protonix] 40 mg PO DAILY Simvastatin [Zocor] 20 mg PO DAILY Spironolactone [Aldactone] 25 mg PO DAILY 08/07/16 10:00 Levofloxacin/Dextrose 5%-Water [Levaquin in D5W 750 MG/150 ML] 750 mg Premix Bag 1 bag IV Q48H 08/08/16 05:11 BASIC METABOLIC PANEL,BMP [CHEM] AM C-REACTIVE PROTEIN [CHEM] AM CBC WITH AUTO DIFF [HEME] AM MAGNESIUM [CHEM] AM 08/09/16 05:11 BASIC METABOLIC PANEL,BMP [CHEM] AM C-REACTIVE PROTEIN [CHEM] AM CBC WITH AUTO DIFF [HEME] AM MAGNESIUM [CHEM] AM 08/09/16 07:00 CBC W/O DIFF,HEMOGRAM [HEME] MOTH@0700 08/10/16 05:11 BASIC METABOLIC PANEL,BMP [CHEM] AM C-REACTIVE PROTEIN [CHEM] AM CBC WITH AUTO DIFF [HEME] AM MAGNESIUM [CHEM] AM 08/11/16 05:11 C-REACTIVE PROTEIN [CHEM] AM MAGNESIUM [CHEM] AM 08/12/16 07:00 CBC W/O DIFF,HEMOGRAM [HEME] MOTH@0700 08/16/16 07:00 CBC W/O DIFF,HEMOGRAM [HEME] MOTH@0700 08/19/16 07:00 CBC W/O DIFF,HEMOGRAM [HEME] MOTH@07 08/23/16 07:00 CBC W/O DIFF,HEMOGRAM [HEME] MOTH@0700 08/26/16 07:00 CBC W/O DIFF,HEMOGRAM [HEME] MOTH@699 - Plan Plan:: Assessment/Plan: Acute: S/p Symptomatic Hypotension - She is now off pressor Junctional tachycardia - Likely induced by dobutamine - Now controlled - Will continue to monitor Partial SBO, improving - Not a good surgical candidate given her advanced age and co-morbid conditions (severe aortic stenosis alone puts her at very high risk for cardiac event/complications) - Son was informed about her guarded condition - Bowel rest, supportive care and IV anti-biotic: Zosyn, Levaquin and Flagyl - Medical management only per family Enteritis With Focal Perforation (pneumatosis intestinalis) - Medical management only as above - WBC: 23k---> 24k---> 17K - CRP is 21 ---> [address] scan - Dietary consult - [facility] S/p Constipation - Increased stool in colon - Bowel prep Mild UTI - Risk Factor: Urinary Retention/Neurogenic Bladder - On IV antibiotic - UA Cx/Sx Leukocytosis - WBC 23.51K--> 24K --> 17K - 2/2 above - Treat underlying cause Chronic: HLD HTN CAD HF With Reduced EF 20-25% w/ Severe Aortic Stenosis and RWMA CKD Stage 3 Severe Cardiomyopathy/NYHA 3 GERD/PUD DM2, diet controlled Urinary Retention/Neurogenic Bladder OA Anxiety/Depression Plan: She looks good clinically Transfer to Med-Surg possible in am Routine AM Labs May start clear liquid diet in am NPO for now except ice chips, sips of water and oral meds Continue PT/OT Fall Precautions SW/CM for d/c planning Code status: DNR/DNI Additional orders as above LOS anticipate > 96 hrs given the complexity of her illness
[2016-08-07] MEDS ORDERED: Nitroglycerin 0.4 MG Tab.SL SL PRN (01:50)
[2016-08-07] MEDS ORDERED: Nitroglycerin 0.4 MG Tab.SL ONE (01:50)
[2016-08-07] MEDS: Nitroglycerin 0.4 MG Tab.SL SL STA ×2 (01:52→01:57)
--- NOTE | 2016-08-07 02:12 | PCM.SN ---
- Free Text/Narrative Note: Patient developed sudden onset of chest pain. CP protocol activated. Awaiting test to come in. She is mildly hypotensive after receiving her SL nitro.
[2016-08-07] MEDS ORDERED: Morphine 2 MG/ML Syringe ONE (02:25)
[2016-08-07] MEDS ORDERED: Morphine 2 MG/ML Syringe IVPUSH ONE (02:33)
[2016-08-07] MEDS ORDERED: Scopolamine 1.5 MG Transdermal Patch TOP ONE (02:59)
[2016-08-07] MEDS ORDERED: DOBUTamine/Dextrose 5%-Water 250 MG/250 ML BAG IV SCH ×2 (03:00→12:00)
[2016-08-07] MEDS ORDERED: DOBUTamine/Dextrose 5%-Water 250 MG/250 ML BAG IV ONE (03:05)
[2016-08-07] MEDS: Ondansetron 4 MG/2 ML SDV IVPUSH PRN (03:16)
[2016-08-07] MEDS: Piperacillin/Tazobactam 4.5 GM in Sodium Chloride 0.9% 100 ML IV SCH ×3 (04:37→18:24)
[2016-08-07] MEDS: Dextrose 5%-0.45% NaCl 1,000 ML IV SCH (08:32)
[2016-08-07] MEDS: Digoxin 500 MCG/2 ML Amp IVPUSH SCH ×4 (08:33→20:43)
[2016-08-07] MEDS: metroNIDAZOLE/Normal Saline 500 MG in Premix Bag 1 BAG IV SCH ×3 (08:35→21:01)
[2016-08-07] MEDS: Enoxaparin 30 MG/0.3 ML Syringe SUBCUT SCH (08:37)
[2016-08-07] MEDS: Pantoprazole 40 MG Vial IV SCH (08:37)
[2016-08-07] MEDS: Insulin Aspart 100 Units/ML 3 ML Pen SUBCUT SCH ×4 (09:01→21:02)
[2016-08-07] MEDS ORDERED: Levofloxacin/Dextrose 5%-Water 750 MG in Premix Bag 1 BAG IV SCH (10:00)
[2016-08-07] MEDS ORDERED: Diltiazem 100 MG in Sodium Chloride 0.9% 100 ML IV SCH (10:30)
[2016-08-07] MEDS: Losartan 100 MG Tab PO SCH (10:50)
[2016-08-07] MEDS: Simvastatin 20 MG Tab PO SCH (10:52)
[2016-08-07] MEDS: Pantoprazole 40 MG Tab.CR PO SCH (10:52)
[2016-08-07] MEDS: Citalopram 10 MG Tab PO SCH (10:52)
[2016-08-07] MEDS: Isosorbide Mononitrate 60 MG Tab.ER PO SCH ×2 (10:52→20:43)
[2016-08-07] MEDS: Spironolactone 25 MG Tab PO SCH (10:52)
[2016-08-07] MEDS: Metoprolol Succinate 50 MG Tab.ER PO SCH (10:53)
[2016-08-07] MEDS: MAGNESIUM HYDROXIDE PO SCH ×2 (10:55→20:43)
[2016-08-07] MEDS: SIMETHICONE PO SCH ×2 (10:55→20:43)
[2016-08-07] MEDS: ALUMINUM HYDROXIDE PO SCH ×2 (10:55→20:43)
[2016-08-08] MEDS: Dextrose 5%-0.45% NaCl 1,000 ML IV SCH ×3 (01:33→18:48)
[2016-08-08] MEDS: Piperacillin/Tazobactam 4.5 GM in Sodium Chloride 0.9% 100 ML IV SCH ×3 (01:33→18:00)
[2016-08-08] MEDS: metroNIDAZOLE/Normal Saline 500 MG in Premix Bag 1 BAG IV SCH ×3 (05:56→21:16)
[2016-08-08] MEDS: Insulin Aspart 100 Units/ML 3 ML Pen SUBCUT SCH ×4 (06:41→21:20)
[2016-08-08] MEDS: Simvastatin 20 MG Tab PO SCH (08:42)
[2016-08-08] MEDS: Metoprolol Succinate 50 MG Tab.ER PO SCH (08:42)
[2016-08-08] MEDS: Citalopram 10 MG Tab PO SCH (08:42)
[2016-08-08] MEDS: Pantoprazole 40 MG Tab.CR PO SCH (08:43)
[2016-08-08] MEDS: Isosorbide Mononitrate 60 MG Tab.ER PO SCH (08:43)
[2016-08-08] MEDS: Spironolactone 25 MG Tab PO SCH (08:43)
[2016-08-08] MEDS: Enoxaparin 30 MG/0.3 ML Syringe SUBCUT SCH (08:43)
[2016-08-08] MEDS: MAGNESIUM HYDROXIDE PO SCH ×2 (08:44→20:26)
[2016-08-08] MEDS: SIMETHICONE PO SCH ×2 (08:44→20:26)
[2016-08-08] MEDS: ALUMINUM HYDROXIDE PO SCH ×2 (08:44→20:26)
[2016-08-08] MEDS: Losartan 100 MG Tab PO SCH (10:01)
--- NOTE | 2016-08-08 10:05 | PCM.PN ---
- General Info Date of Service: 08/08/16 Admission Dx/Problem (Free Text): Admission Diagnosis/Problem Admission Diagnosis/Problem Small bowel obstruction Subjective Update: Follow up Functional Status: Reports: pain controlled, urinating. Denies: new symptoms - Review of Systems General: Denies: Fever, Chills HEENT: Reports: no symptoms Pulmonary: Denies: shortness of breath Cardiovascular: Denies: Chest Pain Gastrointestinal: Reports: Abdominal pain, Flatus. Denies: Nausea, Vomiting Genitourinary: Reports: no symptoms Musculoskeletal: Reports: no symptoms Skin: Denies: cyanosis, rash Neurological: Denies: Dizziness, Weakness Psychiatric: Denies: depression, anxiety, hallucinations Systems Review Comment:: No overnight issues. Her chest pain is gone. She feels overall, a little better. She has no new complaints. HR remains stable. - Patient Data Vitals - most recent: Last Vital Signs Temp 36.7 C 08/08/16 00:00 Pulse 72 08/08/16 08:42 Resp 18 08/08/16 04:00 BP 108/71 08/08/16 08:42 Pulse Ox 94 L 08/08/16 04:00 Weight - most recent: 70.2 kg I&O - last 24 hours: Intake & Output 08/07/16 08/08/16 08/08/16 22:59 06:59 14:59 Intake Total 1414 100 Output Total 120 Balance 1414 -20 Lab Results last 24 hrs: Laboratory Results - last 24 hr 08/07/16 08/07/16 08/07/16 Range/Units 09:01 11:59 17:00 WBC (3.98-10.04) K/mm3 RBC (3.98-5.22) M/mm3 Hgb (11.2-15.7) gm/L Hct (34.1-44.9) % MCV (79.4-94.8) fl MCH (25.6-32.2) pg MCHC (32.2-35.5) g/dl RDW Std Deviation (36.4-46.3) fL Plt Count (182-369) K/mm3 MPV (9.4-12.3) fl Neut % (Auto) (34.0-71.1) % Lymph % (Auto) (19.3-51.7) % [place] % (Auto) (4.7-12.5) % Eos % (Auto) (0.7-5.8) Baso % (Auto) (0.1-1.2) % Neut # (1.56-6.13) K/mm3 Lymph # (1.18-3.74) K/mm3 [place] # (0.24-0.36) K/mm3 Eos # (0.04-0.36) K/mm3 Baso # (0.01-0.08) K/mm3 Sodium (136-145) mEq/L Potassium (3.5-5.1) mEq/L Chloride (98-107) mEq/L Carbon Dioxide (21-32) mEq/L Anion Gap (5-15) BUN (7-18) mg/dL Creatinine (0.55-1.02) mg/dL Est Cr Clr Drug Dosing Estimated GFR (MDRD) (>60) mL/min BUN/Creatinine Ratio (14-18) Glucose (83-115) mg/dL POC Glucose 196 H 204 H 173 H (83-110) mg/dL Calcium (8.5-10.1) mg/dL Magnesium (1.8-2.4) mg/dl C-Reactive Protein (<1.0) mg/dL 08/07/16 08/08/16 08/08/16 Range/Units 20:53 05:08 05:08 WBC 10.14 H (3.98-10.04) K/mm3 RBC 2.92 L (3.98-5.22) M/mm3 Hgb 9.5 L (11.2-15.7) gm/L Hct 29.5 L (34.1-44.9) % MCV 101.0 H (79.4-94.8) fl MCH 32.5 H (25.6-32.2) pg MCHC 32.2 (32.2-35.5) g/dl RDW Std Deviation 50.7 H (36.4-46.3) fL Plt Count 148 L (182-369) K/mm3 MPV 10.3 (9.4-12.3) fl Neut % (Auto) 72.8 H (34.0-71.1) % Lymph % (Auto) 17.9 L (19.3-51.7) % [place] % (Auto) 7.1 (4.7-12.5) % Eos % (Auto) 1.4 (0.7-5.8) Baso % (Auto) 0.1 (0.1-1.2) % Neut # 7.38 H (1.56-6.13) K/mm3 Lymph # 1.82 (1.18-3.74) K/mm3 [place] # 0.72 H (0.24-0.36) K/mm3 Eos # 0.14 (0.04-0.36) K/mm3 Baso # 0.01 (0.01-0.08) K/mm3 Sodium 135 L (136-145) mEq/L Potassium 3.4 L (3.5-5.1) mEq/L Chloride 102 (98-107) mEq/L Carbon Dioxide 22 (21-32) mEq/L Anion Gap 14.4 (5-15) BUN 17 (7-18) mg/dL Creatinine 1.3 H (0.55-1.02) mg/dL Est Cr Clr Drug Dosing TNP Estimated GFR (MDRD) 39 (>60) mL/min BUN/Creatinine Ratio 13.1 L (14-18) Glucose 222 H (83-115) mg/dL POC Glucose 207 H (83-110) mg/dL Calcium 8.0 L (8.5-10.1) mg/dL Magnesium 1.6 L (1.8-2.4) mg/dl C-Reactive Protein 9.6 H* (<1.0) mg/dL 08/08/16 Range/Units 06:39 WBC (3.98-10.04) K/mm3 RBC (3.98-5.22) M/mm3 Hgb (11.2-15.7) gm/L Hct (34.1-44.9) % MCV (79.4-94.8) fl MCH (25.6-32.2) pg MCHC (32.2-35.5) g/dl RDW Std Deviation (36.4-46.3) fL Plt Count (182-369) K/mm3 MPV (9.4-12.3) fl Neut % (Auto) (34.0-71.1) % Lymph % (Auto) (19.3-51.7) % [place] % (Auto) (4.7-12.5) % Eos % (Auto) (0.7-5.8) Baso % (Auto) (0.1-1.2) % Neut # (1.56-6.13) K/mm3 Lymph # (1.18-3.74) K/mm3 [place] # (0.24-0.36) K/mm3 Eos # (0.04-0.36) K/mm3 Baso # (0.01-0.08) K/mm3 Sodium (136-145) mEq/L Potassium (3.5-5.1) mEq/L Chloride (98-107) mEq/L Carbon Dioxide (21-32) mEq/L Anion Gap (5-15) BUN (7-18) mg/dL Creatinine (0.55-1.02) mg/dL Est Cr Clr Drug Dosing Estimated GFR (MDRD) (>60) mL/min BUN/Creatinine Ratio (14-18) Glucose (83-115) mg/dL POC Glucose 217 H (83-110) mg/dL Calcium (8.5-10.1) mg/dL Magnesium (1.8-2.4) mg/dl C-Reactive Protein (<1.0) mg/dL [place] Results last 24 hrs: Microbiology 08/05/16 16:50 Urine Culture - Final Urine, Clean Catch MIXED CANDIDO SUGGESTIVE OF CONTAMINATION. Med Orders - Current: Current Medications Acetaminophen (Tylenol) 650 mg PO Q4H PRN PRN Reason: Pain (Mild 1-3)/fever Acetaminophen/Hydrocodone Bitart ([place] 325-5 Mg) 1 tab PO Q4H PRN PRN Reason: Pain (moderate 4-6) Citalopram Hydrobromide (Celexa) 10 mg PO DAILY [facility] Last Admin: 08/08/16 08:42 Dose: 10 mg Dextrose/Water (Dextrose 50% In Water) 50 ml IVPUSH ASDIRECTED PRN PRN Reason: Hypoglycemia Enoxaparin Sodium (Lovenox) 30 mg SUBCUT DAILY [facility] Last Admin: 08/08/16 08:43 Dose: 30 mg Flunisolide (Nasalide Nasal [place]) 0 ml NASBOTH DAILY [facility] Last Admin: 08/08/16 08:44 Dose: 1 spray Hydromorphone HCl (Dilaudid) 0.5 mg IVPUSH Q1H PRN PRN Reason: Pain Last Admin: 08/06/16 09:01 Dose: 0.5 mg Hydromorphone HCl (Dilaudid) 0.25 mg IVPUSH Q2H PRN PRN Reason: Pain (severe 7-10) Promethazine HCl 12.5 mg/ (Sodium Chloride) 50.5 mls @ 100 mls/hr IV Q6H PRN PRN Reason: Nausea/Vomiting Last Admin: 08/06/16 06:08 Dose: 100 mls/hr Dextrose/Sodium Chloride (Dextrose 5%-1/2 Ns) 1,000 mls @ 125 mls/hr IV ASDIRECTED [facility] Last Admin: 08/08/16 09:59 Dose: 125 mls/hr Metronidazole 500 mg/ Premix 100 mls @ 100 mls/hr IV Q8H [facility] Last Admin: 08/08/16 05:56 Dose: 100 mls/hr Piperacillin Sod/Tazobactam (Sod 4.5 gm/ Sodium Chloride) 100 mls @ 25 mls/hr IV Q8H [facility] Last Admin: 08/08/16 09:59 Dose: 25 mls/hr Diltiazem HCl 100 mg/ Sodium (Chloride) 100 mls @ 5 mls/hr IV TITRATE [facility]; 5 MG /HR PRN Reason: Protocol Dobutamine HCl/Dextrose (Dobutamine In D5w 250 Mg/250 Ml) 250 mg in 250 mls @ 8.834 mls/hr IV TITRATE [facility]; 2 MCG/KG/MIN PRN Reason: Protocol Last Admin: 08/07/16 12:02 Dose: 2 mcg/kg/min, 8.834 mls/hr Insulin Aspart (Novolog) 0 unit SUBCUT QIDACANDBED [facility] PRN Reason: Protocol Last Admin: 08/08/16 06:41 Dose: 2 unit Isosorbide Mononitrate (Imdur) 60 mg PO BID [facility] Last Admin: 08/08/16 08:43 Dose: 60 mg Lorazepam (Ativan) 0.5 mg IV Q6H PRN PRN Reason: Anxiety Losartan Potassium (Cozaar) 100 mg PO DAILY [facility] Last Admin: 08/08/16 10:01 Dose: Not Given Magnesium Sulfate (Pharmacy To Dose - Magnesium Replacement) 1 dose .XX ASDIRECTED [facility] Metoprolol Succinate (Toprol Xl) 100 mg PO DAILY [facility] Last Admin: 08/08/16 08:42 Dose: 100 mg Ondansetron HCl (Zofran) 4 mg IVPUSH Q6HR PRN PRN Reason: NAUSEA Last Admin: 08/07/16 03:16 Dose: 4 mg Pantoprazole Sodium (Protonix) 40 mg PO DAILY [facility] Last Admin: 08/08/16 08:43 Dose: 40 mg Alum Hydrox/Mag (Hydrox/Simeth 10 Ml) 0 each PO BID [facility] Last Admin: 08/08/16 08:44 Dose: Not Given Potassium Chloride (Pharmacy To Dose - Potassium Replacement) 1 dose .XX ASDIRECTED [facility] Simvastatin (Zocor) 20 mg PO DAILY [facility] Last Admin: 08/08/16 08:42 Dose: 20 mg Sodium Chloride (Saline Flush) 10 ml FLUSH ASDIRECTED PRN PRN Reason: Keep Vein Open Last Admin: 08/05/16 02:49 Dose: 10 ml Spironolactone (Aldactone) 25 mg PO DAILY [facility] Last Admin: 08/08/16 08:43 Dose: 25 mg Discontinued Medications Diatrizoate Meglum/Diatrizoate Sod (Gastrografin 37%) 90 ml PO ONETIME ONE Stop: 08/05/16 04:03 Last Admin: 08/05/16 04:32 Dose: 90 ml Digoxin (Lanoxin) 125 mcg IVPUSH Q4H [facility] Stop: 08/07/16 20:31 Last Admin: 08/07/16 20:43 Dose: 125 mcg Hydromorphone HCl (Dilaudid) 0.5 mg IVPUSH ONETIME ONE Stop: 08/05/16 02:35 Last Admin: 08/05/16 02:47 Dose: 0.5 mg Hydromorphone HCl (Dilaudid) 0.5 mg IVPUSH ONETIME ONE Stop: 08/05/16 06:22 Last Admin: 08/05/16 07:04 Dose: 0.5 mg Sodium Chloride (Normal Saline) 1,000 mls @ 125 mls/hr IV ASDIRECTED [facility] Last Admin: 08/05/16 11:34 Dose: 125 mls/hr Sodium Chloride (Normal Saline) 70 mls @ 2 mls/sec IV ASDIRECTED ONE Stop: 08/05/16 04:03 Levofloxacin/Dextrose 750 mg/ (Premix) 150 mls @ 100 mls/hr IV ONETIME ONE Stop: 08/05/16 07:42 Last Admin: 08/05/16 13:44 Dose: Not Given Metronidazole 500 mg/ Premix 100 mls @ 100 mls/hr IV ONETIME ONE Stop: 08/05/16 07:11 Last Admin: 08/05/16 06:41 Dose: 100 mls/hr Levofloxacin/Dextrose 750 mg/ (Premix) 150 mls @ 100 mls/hr IV ONETIME ONE Stop: 08/05/16 11:29 Last Admin: 08/05/16 10:20 Dose: 100 mls/hr Sodium Chloride (Normal Saline) 1,000 mls @ 125 mls/hr IV ASDIRECTED [place] Levofloxacin/Dextrose 750 mg/ (Premix) 150 mls @ 150 mls/hr IV Q48H [facility] Last Admin: 08/07/16 09:02 Dose: 150 mls/hr Piperacillin Sod/Tazobactam (Sod 4.5 gm/ Sodium Chloride) 100 mls @ 200 mls/hr IV ONETIME ONE Stop: 08/06/16 10:59 Last Admin: 08/06/16 10:55 Dose: 200 mls/hr Dobutamine HCl/Dextrose (Dobutamine In D5w 250 Mg/250 Ml) 250 mg in 250 mls @ 8.66 mls/hr IV TITRATE [facility]; 2 MCG/KG/MIN PRN Reason: Protocol Last Admin: 08/07/16 03:09 Dose: 2 mcg/kg/min, 8.66 mls/hr Dobutamine HCl/Dextrose (Dobutamine In D5w 250 Mg/250 Ml) Confirm Administered Dose 250 mg in 250 mls @ as directed IV .STK-MED ONE Stop: 08/07/16 03:06 Last Admin: 08/07/16 03:53 Dose: Not Given Iopamidol (Isovue-370 (76%)) 100 ml IVPUSH ONETIME ONE Stop: 08/05/16 04:03 Last Admin: 08/05/16 04:32 Dose: 100 ml Morphine Sulfate (Morphine) Confirm Administered Dose 2 mg .ROUTE .STK-MED ONE Stop: 08/07/16 02:26 Last Admin: 08/07/16 04:02 Dose: Not Given Morphine Sulfate (Morphine) 1 mg IVPUSH ONETIME ONE Stop: 08/07/16 02:34 Last Admin: 08/07/16 02:28 Dose: 1 mg Nitroglycerin (Nitrostat) Confirm Administered Dose 0.4 mg .ROUTE .STK-MED ONE Stop: 08/07/16 01:51 Last Admin: 08/07/16 05:43 Dose: Not Given Nitroglycerin (Nitrostat) 0.4 mg SL Q5M PRN PRN Reason: Chest Pain Stop: 08/07/16 02:01 Nitroglycerin (Nitrostat) 0.4 mg SL Q5M STA Stop: 08/07/16 01:47 Last Admin: 08/07/16 01:57 Dose: 0.4 mg Ondansetron HCl (Zofran) 4 mg IVPUSH ONETIME ONE Stop: 08/05/16 02:33 Last Admin: 08/05/16 02:48 Dose: 4 mg Ondansetron HCl (Zofran) 4 mg IV Q6H PRN PRN Reason: Nausea/Vomiting Pantoprazole Sodium (Protonix Iv) 40 mg IV Q12HR [facility] Last Admin: 08/07/16 08:37 Dose: 40 mg Scopolamine (Transderm-Scop) 1.5 mg TOP ONETIME ONE Stop: 08/07/16 03:00 Last Admin: 08/07/16 03:16 Dose: 1.5 mg - Exam Quality Assessment: No: supplemental oxygen General: alert, oriented, cooperative, no acute distress HEENT: Pupils equal, Pupils reactive, EOMI, Mucous membr. moist/pink Neck: supple, trachea midline, no JVD, no thyromegaly Lungs: Normal respiratory effort, Decreased breath sounds Cardiovascular: Regular Rate, Regular Rhythm, Murmurs Abdomen: bowel sounds present, soft, no tenderness, no distension, tenderness. No: rigidity, rebound, guarding, distension (Female) Exam: Deferred Back Exam: normal inspection, decreased range of motion Extremities: no edema, normal pulses, no tenderness/swelling, no clubbing, no cyanosis, no calf tenderness Peripheral Pulses: 2+: dorsalis pedis (L), dorsalis pedis (R) Skin: warm, dry, intact Neurological: no new focal deficit Psy/Mental Status: alert, normal affect, normal mood - Problem List Review Problem List Initiated/Reviewed/Updated: Yes - My Orders Last 24 Hours: My Active Orders 08/07/16 10:30 Diltiazem [Cardizem] 100 mg Sodium Chloride 0.9% [Normal Saline] 100 ml IV TITRATE 08/07/16 12:00 DOBUTamine/Dextrose 5%-Water [DOBUTamine in D5W 250 MG/250 ML] 250 mg in 250 ml IV TITRATE 08/08/16 09:53 Consult to Occupational Therapy [OT Evaluation and Treatment] [CONS] Routine Consult to Physical Therapy [PT Evaluation and Treatment] [CONS] Routine 08/08/16 10:00 Magnesium Rep Pharmacy to Dose [Pharmacy to Dose - Magnesium Replacement] 1 dose .XX ASDIRECTED Potassium Rep Pharmacy to Dose [Pharmacy to Dose - Potassium Replacement] 1 dose .XX ASDIRECTED 08/09/16 05:11 BASIC METABOLIC PANEL,BMP [CHEM] AM C-REACTIVE PROTEIN [CHEM] AM CBC WITH AUTO DIFF [HEME] AM MAGNESIUM [CHEM] AM 08/09/16 07:00 CBC W/O DIFF,HEMOGRAM [HEME] MOTH@0700 08/10/16 05:11 BASIC METABOLIC PANEL,BMP [CHEM] AM C-REACTIVE PROTEIN [CHEM] AM CBC WITH AUTO DIFF [HEME] AM MAGNESIUM [CHEM] AM 08/11/16 05:11 C-REACTIVE PROTEIN [CHEM] AM MAGNESIUM [CHEM] AM 08/12/16 07:00 CBC W/O DIFF,HEMOGRAM [HEME] MOTH@0700 08/16/16 07:00 CBC W/O DIFF,HEMOGRAM [HEME] MOTH@0700 08/19/16 07:00 CBC W/O DIFF,HEMOGRAM [HEME] MOTH@0700 08/23/16 07:00 CBC W/O DIFF,HEMOGRAM [HEME] MOTH@0700 08/26/16 07:00 CBC W/O DIFF,HEMOGRAM [HEME] MOTH@0700 - Plan Plan:: Assessment/Plan: Acute: Partial SBO, continue to improve - Not a good surgical candidate given her advanced age and co-morbid conditions (severe aortic stenosis alone puts her at very high risk for cardiac event/complications) - Son was informed about her guarded condition - Bowel rest, supportive care and IV anti-biotic: Zosyn, Levaquin and Flagyl - Medical management only per family Enteritis With Focal Perforation (pneumatosis intestinalis) - Medical management only as above - WBC: 23k---> 24k---> 17K ---> 10K - CRP is 21 ---> 18--> 9.6 Leukocytosis - WBC 23.51K--> 24K --> 17K --> 10K - 2/2 above - Treat underlying cause Fatty Liver on CT scan - Dietary consult - AHA Resolved: S/p Constipation - Increased stool in colon - Bowel prep S/p Symptomatic Hypotension - She is now off pressor S/p Junctional tachycardia - Likely induced by dobutamine - Now controlled - Will continue to monitor S/p Mild UTI - Risk Factor: Urinary Retention/Neurogenic Bladder - On IV antibiotic - UA Cx/Sx - UA Cx: none Chronic: HLD HTN CAD HF With Reduced EF 20-25% w/ Severe Aortic Stenosis and RWMA CKD Stage 3 Severe Cardiomyopathy/NYHA 3 GERD/PUD DM2, diet controlled Urinary Retention/Neurogenic Bladder OA Anxiety/Depression Plan: She looks good clinically Transfer to Med-Surg Routine AM Labs Start clear liquid diet Continue PT/OT Fall Precautions SW/CM for d/c planning Code status: DNR/DNI Additional orders as above LOS anticipate > 96 hrs given the complexity of her illness
[2016-08-08] MEDS ORDERED: Magnesium Sulfate/Water 2 GM in Premix Bag 1 BAG IV ONE (10:45)
[2016-08-08] MEDS: Potassium Chloride 20 MEQ Tab.ER PO SCH ×2 (12:12→13:31)
[2016-08-09] MEDS: Piperacillin/Tazobactam 4.5 GM in Sodium Chloride 0.9% 100 ML IV SCH ×3 (03:01→18:03)
[2016-08-09] MEDS: Dextrose 5%-0.45% NaCl 1,000 ML IV SCH ×3 (03:02→20:42)
[2016-08-09] MEDS: metroNIDAZOLE/Normal Saline 500 MG in Premix Bag 1 BAG IV SCH ×3 (06:24→21:54)
[2016-08-09] MEDS: Insulin Aspart 100 Units/ML 3 ML Pen SUBCUT SCH ×5 (07:35→21:55)
--- NOTE | 2016-08-09 07:59 | CR ---
Chest: Portable view of the chest was obtained. Comparison: Previous chest x-ray of 04/22/16 and lung bases seen on prior abdominal CT dated 08/05/16. Minimal density behind the left heart is seen most likely representing slight atelectasis. Minimal atelectasis seen within the right lung base. Central lung markings are slightly increased which appear chronic. Heart is enlarged. Tortuous thoracic aorta is seen. Bony structures are osteopenic. Impression: 1. Probable bibasilar atelectasis. 2. Other incidental findings as described above. Diagnostic code #2 Agree with preliminary report issued by [facility] (although I believe the left lower lobe findings more likely represent atelectasis rather than pneumonia) (preliminary [facility] report dictated on 08/07/16, 4:29 AM Central Time)
--- NOTE | 2016-08-09 09:25 | PCM.PN ---
- General Info Date of Service: 08/09/16 Admission Dx/Problem (Free Text): Admission Diagnosis/Problem Admission Diagnosis/Problem Small bowel obstruction Subjective Update: Follow up Functional Status: Reports: pain controlled, tolerating diet, ambulating, urinating. Denies: new symptoms - Review of Systems General: Denies: Fever, Chills HEENT: Reports: no symptoms Pulmonary: Denies: shortness of breath Cardiovascular: Denies: Chest Pain Gastrointestinal: Reports: Abdominal pain. Denies: Nausea, Vomiting Genitourinary: Reports: no symptoms Musculoskeletal: Reports: no symptoms Skin: Reports: bruising Neurological: Denies: Confusion Psychiatric: Denies: depression, anxiety, hallucinations Systems Review Comment:: No significant overnight issues. Her chest pain is over but still has a little belly ache. She continues to pass gas. - Patient Data Vitals - most recent: Last Vital Signs Temp 36.8 C 08/09/16 07:52 Pulse 90 08/09/16 07:52 Resp 18 08/09/16 07:52 BP 113/69 08/09/16 07:52 Pulse Ox 98 08/09/16 07:52 Weight - most recent: 79.243 kg I&O - last 24 hours: Intake & Output 08/08/16 08/09/16 08/09/16 22:59 06:59 14:59 Intake Total 625 2152 Output Total 200 Balance 625 1952 Lab Results last 24 hrs: Laboratory Results - last 24 hr 08/06/16 08/08/16 08/08/16 Range/Units 11:14 16:23 21:19 WBC (3.98-10.04) K/mm3 RBC (3.98-5.22) M/mm3 Hgb (11.2-15.7) gm/L Hct (34.1-44.9) % MCV (79.4-94.8) fl MCH (25.6-32.2) pg MCHC (32.2-35.5) g/dl RDW Std Deviation (36.4-46.3) fL Plt Count (182-369) K/mm3 MPV (9.4-12.3) fl Neut % (Auto) (34.0-71.1) % Lymph % (Auto) (19.3-51.7) % [place] % (Auto) (4.7-12.5) % Eos % (Auto) (0.7-5.8) Baso % (Auto) (0.1-1.2) % Neut # (1.56-6.13) K/mm3 Lymph # (1.18-3.74) K/mm3 [place] # (0.24-0.36) K/mm3 Eos # (0.04-0.36) K/mm3 Baso # (0.01-0.08) K/mm3 Manual Slide Review Sodium (136-145) mEq/L Potassium (3.5-5.1) mEq/L Chloride (98-107) mEq/L Carbon Dioxide (21-32) mEq/L Anion Gap (5-15) BUN (7-18) mg/dL Creatinine (0.55-1.02) mg/dL Est Cr Clr Drug Dosing Estimated GFR (MDRD) (>60) mL/min BUN/Creatinine Ratio (14-18) Glucose (83-115) mg/dL POC Glucose 214 H 202 H 253 H (83-110) mg/dL Calcium (8.5-10.1) mg/dL Magnesium (1.8-2.4) mg/dl C-Reactive Protein (<1.0) mg/dL 08/09/16 08/09/16 08/09/16 Range/Units 06:05 06:34 06:34 WBC 10.25 H (3.98-10.04) K/mm3 RBC 3.06 L (3.98-5.22) M/mm3 Hgb 9.9 L (11.2-15.7) gm/L Hct 30.2 L (34.1-44.9) % MCV 98.7 H (79.4-94.8) fl MCH 32.4 H (25.6-32.2) pg MCHC 32.8 (32.2-35.5) g/dl RDW Std Deviation 48.6 H (36.4-46.3) fL Plt Count 161 L (182-369) K/mm3 MPV 10.2 (9.4-12.3) fl Neut % (Auto) 67.9 (34.0-71.1) % Lymph % (Auto) 20.6 (19.3-51.7) % [place] % (Auto) 8.6 (4.7-12.5) % Eos % (Auto) 1.6 (0.7-5.8) Baso % (Auto) 0.2 (0.1-1.2) % Neut # 6.97 H (1.56-6.13) K/mm3 Lymph # 2.11 (1.18-3.74) K/mm3 [place] # 0.88 H (0.24-0.36) K/mm3 Eos # 0.16 (0.04-0.36) K/mm3 Baso # 0.02 (0.01-0.08) K/mm3 Manual Slide Review Normal smear Sodium 133 L (136-145) mEq/L Potassium 3.5 (3.5-5.1) mEq/L Chloride 101 (98-107) mEq/L Carbon Dioxide 20 L (21-32) mEq/L Anion Gap 15.5 H (5-15) BUN 12 (7-18) mg/dL Creatinine 1.1 H (0.55-1.02) mg/dL Est Cr Clr Drug Dosing TNP Estimated GFR (MDRD) 47 (>60) mL/min BUN/Creatinine Ratio 10.9 L (14-18) Glucose 224 H (83-115) mg/dL POC Glucose 215 H (83-110) mg/dL Calcium 7.8 L (8.5-10.1) mg/dL Magnesium 1.8 (1.8-2.4) mg/dl C-Reactive Protein 5.8 H* (<1.0) mg/dL [place] Results last 24 hrs: Microbiology 08/05/16 16:50 Urine Culture - Final Urine, Clean Catch MIXED CANDIDO SUGGESTIVE OF CONTAMINATION. Med Orders - Current: Current Medications Acetaminophen (Tylenol) 650 mg PO Q4H PRN PRN Reason: Pain (Mild 1-3)/fever Acetaminophen/Hydrocodone Bitart ([place] 325-5 Mg) 1 tab PO Q4H PRN PRN Reason: Pain (moderate 4-6) Citalopram Hydrobromide (Celexa) 10 mg PO DAILY [facility] Last Admin: 08/08/16 08:42 Dose: 10 mg Dextrose/Water (Dextrose 50% In Water) 50 ml IVPUSH ASDIRECTED PRN PRN Reason: Hypoglycemia Enoxaparin Sodium (Lovenox) 30 mg SUBCUT DAILY [facility] Last Admin: 08/08/16 08:43 Dose: 30 mg Flunisolide (Nasalide Nasal [place]) 0 ml NASBOTH DAILY [facility] Last Admin: 08/08/16 08:44 Dose: 1 spray Hydromorphone HCl (Dilaudid) 0.5 mg IVPUSH Q1H PRN PRN Reason: Pain Last Admin: 08/06/16 09:01 Dose: 0.5 mg Hydromorphone HCl (Dilaudid) 0.25 mg IVPUSH Q2H PRN PRN Reason: Pain (severe 7-10) Promethazine HCl 12.5 mg/ (Sodium Chloride) 50.5 mls @ 100 mls/hr IV Q6H PRN PRN Reason: Nausea/Vomiting Last Admin: 08/06/16 06:08 Dose: 100 mls/hr Dextrose/Sodium Chloride (Dextrose 5%-1/2 Ns) 1,000 mls @ 125 mls/hr IV ASDIRECTED [facility] Last Admin: 08/09/16 03:02 Dose: 125 mls/hr Metronidazole 500 mg/ Premix 100 mls @ 100 mls/hr IV Q8H [facility] Last Admin: 08/09/16 06:24 Dose: 100 mls/hr Piperacillin Sod/Tazobactam (Sod 4.5 gm/ Sodium Chloride) 100 mls @ 25 mls/hr IV Q8H [facility] Last Admin: 08/09/16 03:01 Dose: 25 mls/hr Diltiazem HCl 100 mg/ Sodium (Chloride) 100 mls @ 5 mls/hr IV TITRATE [place]; 5 MG /HR PRN Reason: Protocol Dobutamine HCl/Dextrose (Dobutamine In D5w 250 Mg/250 Ml) 250 mg in 250 mls @ 8.834 mls/hr IV TITRATE [place]; 2 MCG/KG/MIN PRN Reason: Protocol Last Admin: 08/07/16 12:02 Dose: 2 mcg/kg/min, 8.834 mls/hr Insulin Aspart (Novolog) 0 unit SUBCUT QIDACANDBED [facility] PRN Reason: Protocol Last Admin: 08/08/16 21:20 Dose: 3 unit Isosorbide Mononitrate (Imdur) 60 mg PO BID [facility] Last Admin: 08/08/16 08:43 Dose: 60 mg Lorazepam (Ativan) 0.5 mg IV Q6H PRN PRN Reason: Anxiety Losartan Potassium (Cozaar) 100 mg PO DAILY [facility] Last Admin: 08/08/16 10:01 Dose: Not Given Magnesium Sulfate (Pharmacy To Dose - Magnesium Replacement) 1 dose .XX ASDIRECTED [facility] Metoprolol Succinate (Toprol Xl) 100 mg PO DAILY [facility] Last Admin: 08/08/16 08:42 Dose: 100 mg Ondansetron HCl (Zofran) 4 mg IVPUSH Q6HR PRN PRN Reason: NAUSEA Last Admin: 08/07/16 03:16 Dose: 4 mg Pantoprazole Sodium (Protonix) 40 mg PO DAILY [facility] Last Admin: 08/08/16 08:43 Dose: 40 mg Alum Hydrox/Mag (Hydrox/Simeth 10 Ml) 0 each PO BID [facility] Last Admin: 08/08/16 20:26 Dose: Not Given Potassium Chloride (Pharmacy To Dose - Potassium Replacement) 1 dose .XX ASDIRECTED [facility] Simvastatin (Zocor) 20 mg PO DAILY [facility] Last Admin: 08/08/16 08:42 Dose: 20 mg Sodium Chloride (Saline Flush) 10 ml FLUSH ASDIRECTED PRN PRN Reason: Keep Vein Open Last Admin: 08/05/16 02:49 Dose: 10 ml Spironolactone (Aldactone) 25 mg PO DAILY [facility] [place] Last Admin: 08/08/16 08:43 Dose: 25 mg Discontinued Medications Diatrizoate Meglum/Diatrizoate Sod (Gastrografin 37%) 90 ml PO ONETIME ONE Stop: 08/05/16 04:03 Last Admin: 08/05/16 04:32 Dose: 90 ml Digoxin (Lanoxin) 125 mcg IVPUSH Q4H [facility] Stop: 08/07/16 20:31 Last Admin: 08/07/16 20:43 Dose: 125 mcg Hydromorphone HCl (Dilaudid) 0.5 mg IVPUSH ONETIME ONE Stop: 08/05/16 02:35 Last Admin: 08/05/16 02:47 Dose: 0.5 mg Hydromorphone HCl (Dilaudid) 0.5 mg IVPUSH ONETIME ONE Stop: 08/05/16 06:22 Last Admin: 08/05/16 07:04 Dose: 0.5 mg Sodium Chloride (Normal Saline) 1,000 mls @ 125 mls/hr IV ASDIRECTED [facility] Last Admin: 08/05/16 11:34 Dose: 125 mls/hr Sodium Chloride (Normal Saline) 70 mls @ 2 mls/sec IV ASDIRECTED ONE Stop: 08/05/16 04:03 Levofloxacin/Dextrose 750 mg/ (Premix) 150 mls @ 100 mls/hr IV ONETIME ONE Stop: 08/05/16 07:42 Last Admin: 08/05/16 13:44 Dose: Not Given Metronidazole 500 mg/ Premix 100 mls @ 100 mls/hr IV ONETIME ONE Stop: 08/05/16 07:11 Last Admin: 08/05/16 06:41 Dose: 100 mls/hr Levofloxacin/Dextrose 750 mg/ (Premix) 150 mls @ 100 mls/hr IV ONETIME ONE Stop: 08/05/16 11:29 Last Admin: 08/05/16 10:20 Dose: 100 mls/hr Sodium Chloride (Normal Saline) 1,000 mls @ 125 mls/hr IV ASDIRECTED [facility] Levofloxacin/Dextrose 750 mg/ (Premix) 150 mls @ 150 mls/hr IV Q48H [facility] Last Admin: 08/07/16 09:02 Dose: 150 mls/hr Piperacillin Sod/Tazobactam (Sod 4.5 gm/ Sodium Chloride) 100 mls @ 200 mls/hr IV ONETIME ONE Stop: 08/06/16 10:59 Last Admin: 08/06/16 10:55 Dose: 200 mls/hr Dobutamine HCl/Dextrose (Dobutamine In D5w 250 Mg/250 Ml) 250 mg in 250 mls @ 8.66 mls/hr IV TITRATE [place]; 2 MCG/KG/MIN PRN Reason: Protocol Last Admin: 08/07/16 03:09 Dose: 2 mcg/kg/min, 8.66 mls/hr Dobutamine HCl/Dextrose (Dobutamine In D5w 250 Mg/250 Ml) Confirm Administered Dose 250 mg in 250 mls @ as directed IV .STK-MED ONE Stop: 08/07/16 03:06 Last Admin: 08/07/16 03:53 Dose: Not Given Magnesium Sulfate 2 gm/ Premix 50 mls @ 25 mls/hr IV ONETIME ONE Stop: 08/08/16 12:44 Last Admin: 08/08/16 12:32 Dose: 25 mls/hr Iopamidol (Isovue-370 (76%)) 100 ml IVPUSH ONETIME ONE Stop: 08/05/16 04:03 Last Admin: 08/05/16 04:32 Dose: 100 ml Morphine Sulfate (Morphine) Confirm Administered Dose 2 mg .ROUTE .STK-MED ONE Stop: 08/07/16 02:26 Last Admin: 08/07/16 04:02 Dose: Not Given Morphine Sulfate (Morphine) 1 mg IVPUSH ONETIME ONE Stop: 08/07/16 02:34 Last Admin: 08/07/16 02:28 Dose: 1 mg Nitroglycerin (Nitrostat) Confirm Administered Dose 0.4 mg .ROUTE .STK-MED ONE Stop: 08/07/16 01:51 Last Admin: 08/07/16 05:43 Dose: Not Given Nitroglycerin (Nitrostat) 0.4 mg SL Q5M PRN PRN Reason: Chest Pain Stop: 08/07/16 02:01 Nitroglycerin (Nitrostat) 0.4 mg SL Q5M STA Stop: 08/07/16 01:47 Last Admin: 08/07/16 01:57 Dose: 0.4 mg Ondansetron HCl (Zofran) 4 mg IVPUSH ONETIME ONE Stop: 08/05/16 02:33 Last Admin: 08/05/16 02:48 Dose: 4 mg Ondansetron HCl (Zofran) 4 mg IV Q6H PRN PRN Reason: Nausea/Vomiting Pantoprazole Sodium (Protonix Iv) 40 mg IV Q12HR [facility] Last Admin: 08/07/16 08:37 Dose: 40 mg Potassium Chloride (Klor-Con M20) 20 meq PO Q3H [facility] Stop: 08/08/16 13:46 Last Admin: 08/08/16 13:31 Dose: 20 meq Scopolamine (Transderm-Scop) 1.5 mg TOP ONETIME ONE Stop: 08/07/16 03:00 Last Admin: 08/07/16 03:16 Dose: 1.5 mg - Exam General: alert, oriented, cooperative, no acute distress HEENT: Pupils equal, Pupils reactive, EOMI, Mucous membr. moist/pink Neck: supple, trachea midline, no JVD, no thyromegaly Lungs: Normal respiratory effort Cardiovascular: Regular Rate, Regular Rhythm, Murmurs Abdomen: bowel sounds present, soft, tenderness (left lower quadrant). No: no distension, rigidity, rebound, guarding, distension (Female) Exam: Deferred Back Exam: normal inspection, decreased range of motion Extremities: no edema, normal pulses, no tenderness/swelling, no clubbing, no cyanosis, no calf tenderness Peripheral Pulses: 2+: dorsalis pedis (L), dorsalis pedis (R) Skin: warm, dry, intact, ecchymosis Neurological: no new focal deficit Psy/Mental Status: alert, normal affect, normal mood - Problem List Review Problem List Initiated/Reviewed/Updated: Yes - My Orders Last 24 Hours: My Active Orders 08/08/16 09:53 Consult to Occupational Therapy [OT Evaluation and Treatment] [CONS] Routine Consult to Physical Therapy [PT Evaluation and Treatment] [CONS] Routine 08/08/16 10:00 Magnesium Rep Pharmacy to Dose [Pharmacy to Dose - Magnesium Replacement] 1 dose .XX ASDIRECTED Potassium Rep Pharmacy to Dose [Pharmacy to Dose - Potassium Replacement] 1 dose .XX ASDIRECTED 08/08/16 12:38 Patient Status [ADT] Routine 08/08/16 Lunch Clear Liquid Diet [DIET] 08/10/16 05:11 BASIC METABOLIC PANEL,BMP [CHEM] AM C-REACTIVE PROTEIN [CHEM] AM CBC WITH AUTO DIFF [HEME] AM MAGNESIUM [CHEM] AM 08/11/16 05:11 C-REACTIVE PROTEIN [CHEM] AM MAGNESIUM [CHEM] AM 08/12/16 07:00 CBC W/O DIFF,HEMOGRAM [HEME] MOTH@0700 08/16/16 07:00 CBC W/O DIFF,HEMOGRAM [HEME] MOTH@0700 08/19/16 07:00 CBC W/O DIFF,HEMOGRAM [HEME] MOTH@0700 08/23/16 07:00 CBC W/O DIFF,HEMOGRAM [HEME] MOTH@0700 08/26/16 07:00 CBC W/O DIFF,HEMOGRAM [HEME] MOTH@0700 - Plan Plan:: Assessment/Plan: Acute: Partial SBO, continue to improve - Not a good surgical candidate given her advanced age and co-morbid conditions (severe aortic stenosis alone puts her at very high risk for cardiac event/complications) - Son was informed about her guarded condition - Bowel rest, supportive care and IV anti-biotic: Zosyn, Levaquin and Flagyl - Medical management only per family Enteritis With Focal Perforation (pneumatosis intestinalis) - Medical management only as above - WBC: 23k---> 24k---> 17K ---> 10K - CRP is 21 ---> 18--> 9.6 --> 5.8 Leukocytosis - WBC 23.51K--> 24K --> 17K --> 10K - 2/2 above - Treat underlying cause Fatty Liver on CT scan - Dietary consult - [facility] Chronic Angina - She is hemodynamically stable - Will resume Imdur 60 mg po BID Resolved: S/p Constipation - Increased stool in colon - Bowel prep S/p Symptomatic Hypotension - She is now off pressor S/p Junctional tachycardia - Likely induced by dobutamine - Now controlled - Will continue to monitor S/p Mild UTI - Risk Factor: Urinary Retention/Neurogenic Bladder - On IV antibiotic - UA Cx/Sx - UA Cx: none Chronic: HLD HTN CAD HF With Reduced EF 20-25% w/ Severe Aortic Stenosis and RWMA CKD Stage 3 Severe Cardiomyopathy/NYHA 3 GERD/PUD DM2, diet controlled Urinary Retention/Neurogenic Bladder OA Anxiety/Depression Plan: She looks good clinically Routine AM Labs Advance diet as tolerated Continue PT/OT Fall Precautions SW/CM for d/c planning Code status: DNR/DNI Additional orders as above LOS anticipate > 96 hrs given the complexity of her illness
[2016-08-09] MEDS: Potassium Chloride 20 MEQ Tab.ER PO SCH ×2 (10:31→15:06)
[2016-08-09] MEDS: Citalopram 10 MG Tab PO SCH (10:31)
[2016-08-09] MEDS: Enoxaparin 30 MG/0.3 ML Syringe SUBCUT SCH (10:31)
[2016-08-09] MEDS: Simvastatin 20 MG Tab PO SCH (10:31)
[2016-08-09] MEDS: Pantoprazole 40 MG Tab.CR PO SCH (10:31)
[2016-08-09] MEDS: ALUMINUM HYDROXIDE PO SCH ×2 (10:32→21:54)
[2016-08-09] MEDS: SIMETHICONE PO SCH ×2 (10:32→21:54)
[2016-08-09] MEDS: MAGNESIUM HYDROXIDE PO SCH ×2 (10:32→21:54)
[2016-08-09] MEDS ORDERED: Magnesium Sulfate/Water 2 GM in Premix Bag 1 BAG IV ONE (11:15)
[2016-08-09] MEDS: Isosorbide Mononitrate 60 MG Tab.ER PO SCH (20:43)
[2016-08-09] MEDS: Temazepam 15 MG Cap PO PRN (21:17)
[2016-08-09] MEDS ORDERED: diphenhydrAMINE 50 MG/ML SDV ONE (22:42)
[2016-08-10] MEDS: Piperacillin/Tazobactam 4.5 GM in Sodium Chloride 0.9% 100 ML IV SCH ×3 (02:27→18:24)
[2016-08-10] MEDS: metroNIDAZOLE/Normal Saline 500 MG in Premix Bag 1 BAG IV SCH ×3 (05:43→21:21)
[2016-08-10] MEDS: Dextrose 5%-0.45% NaCl 1,000 ML IV SCH (05:43)
[2016-08-10] MEDS: Insulin Aspart 100 Units/ML 3 ML Pen SUBCUT SCH ×4 (06:59→21:20)
--- NOTE | 2016-08-10 08:34 | PCM.PN ---
- General Info Date of Service: 08/10/16 Admission Dx/Problem (Free Text): Admission Diagnosis/Problem Admission Diagnosis/Problem Small bowel obstruction Subjective Update: Follow up Functional Status: Reports: pain controlled, tolerating diet, ambulating, urinating. Denies: new symptoms - Review of Systems General: Denies: Fever, Weakness, Fatigue, Malaise, Chills HEENT: Reports: no symptoms Pulmonary: Denies: shortness of breath Cardiovascular: Denies: Chest Pain Gastrointestinal: Denies: Abdominal pain, Nausea, Vomiting Genitourinary: Reports: no symptoms Musculoskeletal: Reports: no symptoms Skin: Denies: cyanosis, pallor, pruritis, rash Neurological: Denies: Confusion, Dizziness, Difficulty Walking, Gait Disturbance Psychiatric: Denies: depression, anxiety, hallucinations Systems Review Comment:: No overnight or acute issues. She is doing relatively well. She is tolerating full liquid diet. She complaints of sore throat but no trouble with swallowing. - Patient Data Vitals - most recent: Last Vital Signs Temp 36.4 C 08/10/16 08:24 Pulse 82 08/10/16 08:24 Resp 20 08/10/16 08:24 BP 116/68 08/10/16 08:24 Pulse Ox 97 08/10/16 08:24 Weight - most recent: 82.826 kg I&O - last 24 hours: Intake & Output 08/09/16 08/10/16 08/10/16 22:59 06:59 14:59 Intake Total 3190 1361 Output Total 300 Balance 2890 1361 Lab Results last 24 hrs: Laboratory Results - last 24 hr 08/09/16 08/09/16 08/09/16 Range/Units 11:40 17:47 21:53 WBC (3.98-10.04) K/mm3 RBC (3.98-5.22) M/mm3 Hgb (11.2-15.7) gm/L Hct (34.1-44.9) % MCV (79.4-94.8) fl MCH (25.6-32.2) pg MCHC (32.2-35.5) g/dl RDW Std Deviation (36.4-46.3) fL Plt Count (182-369) K/mm3 MPV (9.4-12.3) fl Neut % (Auto) (34.0-71.1) % Lymph % (Auto) (19.3-51.7) % [place] % (Auto) (4.7-12.5) % Eos % (Auto) (0.7-5.8) Baso % (Auto) (0.1-1.2) % Neut # (1.56-6.13) K/mm3 Lymph # (1.18-3.74) K/mm3 [place] # (0.24-0.36) K/mm3 Eos # (0.04-0.36) K/mm3 Baso # (0.01-0.08) K/mm3 Manual Slide Review Sodium (136-145) mEq/L Potassium (3.5-5.1) mEq/L Chloride (98-107) mEq/L Carbon Dioxide (21-32) mEq/L Anion Gap (5-15) BUN (7-18) mg/dL Creatinine (0.55-1.02) mg/dL Est Cr Clr Drug Dosing Estimated GFR (MDRD) (>60) mL/min BUN/Creatinine Ratio (14-18) Glucose (83-115) mg/dL POC Glucose 231 H 238 H 233 H (83-110) mg/dL Calcium (8.5-10.1) mg/dL Magnesium (1.8-2.4) mg/dl C-Reactive Protein (<1.0) mg/dL 08/10/16 08/10/16 08/10/16 Range/Units 06:16 06:16 06:31 WBC 11.95 H (3.98-10.04) K/mm3 RBC 3.34 L (3.98-5.22) M/mm3 Hgb 10.8 L (11.2-15.7) gm/L Hct 32.8 L (34.1-44.9) % MCV 98.2 H (79.4-94.8) fl MCH 32.3 H (25.6-32.2) pg MCHC 32.9 (32.2-35.5) g/dl RDW Std Deviation 48.9 H (36.4-46.3) fL Plt Count 163 L (182-369) K/mm3 MPV 9.7 (9.4-12.3) fl Neut % (Auto) 70.0 (34.0-71.1) % Lymph % (Auto) 18.1 L (19.3-51.7) % [place] % (Auto) 8.5 (4.7-12.5) % Eos % (Auto) 1.9 (0.7-5.8) Baso % (Auto) 0.2 (0.1-1.2) % Neut # 8.36 H (1.56-6.13) K/mm3 Lymph # 2.16 (1.18-3.74) K/mm3 [place] # 1.02 H (0.24-0.36) K/mm3 Eos # 0.23 (0.04-0.36) K/mm3 Baso # 0.02 (0.01-0.08) K/mm3 Manual Slide Review Normal smear Sodium 133 L (136-145) mEq/L Potassium 3.7 (3.5-5.1) mEq/L Chloride 102 (98-107) mEq/L Carbon Dioxide 18 L (21-32) mEq/L Anion Gap 16.7 H (5-15) BUN 9 (7-18) mg/dL Creatinine 1.1 H (0.55-1.02) mg/dL Est Cr Clr Drug Dosing TNP Estimated GFR (MDRD) 47 (>60) mL/min BUN/Creatinine Ratio 8.2 L (14-18) Glucose 199 H (83-115) mg/dL POC Glucose 149 H (83-110) mg/dL Calcium 8.2 L (8.5-10.1) mg/dL Magnesium 2.2 (1.8-2.4) mg/dl C-Reactive Protein 4.9 H* (<1.0) mg/dL Med Orders - Current: Current Medications Acetaminophen (Tylenol) 650 mg PO Q4H PRN PRN Reason: Pain (Mild 1-3)/fever Acetaminophen/Hydrocodone Bitart ([place] 325-5 Mg) 1 tab PO Q4H PRN PRN Reason: Pain (moderate 4-6) Citalopram Hydrobromide (Celexa) 10 mg PO DAILY [facility] Last Admin: 08/09/16 10:31 Dose: 10 mg Dextrose/Water (Dextrose 50% In Water) 50 ml IVPUSH ASDIRECTED PRN PRN Reason: Hypoglycemia Enoxaparin Sodium (Lovenox) 30 mg SUBCUT DAILY [facility] Last Admin: 08/09/16 10:31 Dose: 30 mg Flunisolide (Nasalide Nasal [place]) 0 ml NASBOTH DAILY [facility] Last Admin: 08/09/16 10:30 Dose: 1 spray Hydromorphone HCl (Dilaudid) 0.5 mg IVPUSH Q1H PRN PRN Reason: Pain Last Admin: 08/06/16 09:01 Dose: 0.5 mg Hydromorphone HCl (Dilaudid) 0.25 mg IVPUSH Q2H PRN PRN Reason: Pain (severe 7-10) Promethazine HCl 12.5 mg/ (Sodium Chloride) 50.5 mls @ 100 mls/hr IV Q6H PRN PRN Reason: Nausea/Vomiting Last Admin: 08/06/16 06:08 Dose: 100 mls/hr Dextrose/Sodium Chloride (Dextrose 5%-1/2 Ns) 1,000 mls @ 125 mls/hr IV ASDIRECTED [facility] Last Admin: 08/10/16 05:43 Dose: 125 mls/hr Metronidazole 500 mg/ Premix 100 mls @ 100 mls/hr IV Q8H [facility] Last Admin: 08/10/16 05:43 Dose: 100 mls/hr Piperacillin Sod/Tazobactam (Sod 4.5 gm/ Sodium Chloride) 100 mls @ 25 mls/hr IV Q8H [facility] Last Admin: 08/10/16 02:27 Dose: 25 mls/hr Insulin Aspart (Novolog) 0 unit SUBCUT QIDACANDBED [facility] PRN Reason: Protocol Last Admin: 08/10/16 06:59 Dose: Not Given Isosorbide Mononitrate (Imdur) 60 mg PO BID [facility] Last Admin: 08/09/16 20:43 Dose: 60 mg Lorazepam (Ativan) 0.5 mg IV Q6H PRN PRN Reason: Anxiety Last Admin: 08/09/16 21:20 Dose: 0.5 mg Losartan Potassium (Cozaar) 100 mg PO DAILY [facility] Last Admin: 08/08/16 10:01 Dose: Not Given Magnesium Sulfate (Pharmacy To Dose - Magnesium Replacement) 1 dose .XX ASDIRECTED [facility] Metoprolol Succinate (Toprol Xl) 100 mg PO DAILY [facility] Last Admin: 08/08/16 08:42 Dose: 100 mg Ondansetron HCl (Zofran) 4 mg IVPUSH Q6HR PRN PRN Reason: NAUSEA Last Admin: 08/07/16 03:16 Dose: 4 mg Pantoprazole Sodium (Protonix) 40 mg PO DAILY [facility] Last Admin: 08/09/16 10:31 Dose: 40 mg Alum Hydrox/Mag (Hydrox/Simeth 10 Ml) 0 each PO BID [facility] Last Admin: 08/09/16 21:54 Dose: Not Given Potassium Chloride (Pharmacy To Dose - Potassium Replacement) 1 dose .XX ASDIRECTED [facility] Simvastatin (Zocor) 20 mg PO DAILY [facility] Last Admin: 08/09/16 10:31 Dose: 20 mg Sodium Chloride (Saline Flush) 10 ml FLUSH ASDIRECTED PRN PRN Reason: Keep Vein Open Last Admin: 08/05/16 02:49 Dose: 10 ml Spironolactone (Aldactone) 25 mg PO DAILY [facility] Last Admin: 08/08/16 08:43 Dose: 25 mg Temazepam (Restoril) 15 mg PO BEDTIME PRN PRN Reason: Insomnia Last Admin: 08/09/16 21:17 Dose: 15 mg Discontinued Medications Diatrizoate Meglum/Diatrizoate Sod (Gastrografin 37%) 90 ml PO ONETIME ONE Stop: 08/05/16 04:03 Last Admin: 08/05/16 04:32 Dose: 90 ml Digoxin (Lanoxin) 125 mcg IVPUSH Q4H [facility] Stop: 08/07/16 20:31 Last Admin: 08/07/16 20:43 Dose: 125 mcg Diphenhydramine HCl (Benadryl) Confirm Administered Dose 50 mg .ROUTE .STK-MED ONE Stop: 08/09/16 22:43 Last Admin: 08/09/16 22:48 Dose: Not Given Hydromorphone HCl (Dilaudid) 0.5 mg IVPUSH ONETIME ONE Stop: 08/05/16 02:35 Last Admin: 08/05/16 02:47 Dose: 0.5 mg Hydromorphone HCl (Dilaudid) 0.5 mg IVPUSH ONETIME ONE Stop: 08/05/16 06:22 Last Admin: 08/05/16 07:04 Dose: 0.5 mg Sodium Chloride (Normal Saline) 1,000 mls @ 125 mls/hr IV ASDIRECTED [facility] Last Admin: 08/05/16 11:34 Dose: 125 mls/hr Sodium Chloride (Normal Saline) 70 mls @ 2 mls/sec IV ASDIRECTED ONE Stop: 08/05/16 04:03 Last Admin: 08/09/16 22:20 Dose: Not Given Levofloxacin/Dextrose 750 mg/ (Premix) 150 mls @ 100 mls/hr IV ONETIME ONE Stop: 08/05/16 07:42 Last Admin: 08/05/16 13:44 Dose: Not Given Metronidazole 500 mg/ Premix 100 mls @ 100 mls/hr IV ONETIME ONE Stop: 08/05/16 07:11 Last Admin: 08/05/16 06:41 Dose: 100 mls/hr Levofloxacin/Dextrose 750 mg/ (Premix) 150 mls @ 100 mls/hr IV ONETIME ONE Stop: 08/05/16 11:29 Last Admin: 08/05/16 10:20 Dose: 100 mls/hr Sodium Chloride (Normal Saline) 1,000 mls @ 125 mls/hr IV ASDIRECTED [place] Levofloxacin/Dextrose 750 mg/ (Premix) 150 mls @ 150 mls/hr IV Q48H [facility] Last Admin: 08/07/16 09:02 Dose: 150 mls/hr Piperacillin Sod/Tazobactam (Sod 4.5 gm/ Sodium Chloride) 100 mls @ 200 mls/hr IV ONETIME ONE Stop: 08/06/16 10:59 Last Admin: 08/06/16 10:55 Dose: 200 mls/hr Dobutamine HCl/Dextrose (Dobutamine In D5w 250 Mg/250 Ml) 250 mg in 250 mls @ 8.66 mls/hr IV TITRATE [facility]IS; 2 MCG/KG/MIN PRN Reason: Protocol Last Admin: 08/07/16 03:09 Dose: 2 mcg/kg/min, 8.66 mls/hr Dobutamine HCl/Dextrose (Dobutamine In D5w 250 Mg/250 Ml) Confirm Administered Dose 250 mg in 250 mls @ as directed IV .STK-MED ONE Stop: 08/07/16 03:06 Last Admin: 08/07/16 03:53 Dose: Not Given Diltiazem HCl 100 mg/ Sodium (Chloride) 100 mls @ 5 mls/hr IV TITRATE [place]IS; 5 MG /HR PRN Reason: Protocol Dobutamine HCl/Dextrose (Dobutamine In D5w 250 Mg/250 Ml) 250 mg in 250 mls @ 8.834 mls/hr IV TITRATE M[place]IS; 2 MCG/KG/MIN PRN Reason: Protocol Last Admin: 08/07/16 12:02 Dose: 2 mcg/kg/min, 8.834 mls/hr Magnesium Sulfate 2 gm/ Premix 50 mls @ 25 mls/hr IV ONETIME ONE Stop: 08/08/16 12:44 Last Admin: 08/08/16 12:32 Dose: 25 mls/hr Magnesium Sulfate 2 gm/ Premix 50 mls @ 25 mls/hr IV ONETIME ONE Stop: 08/09/16 13:14 Last Admin: 08/09/16 10:30 Dose: 25 mls/hr Iopamidol (Isovue-370 (76%)) 100 ml IVPUSH ONETIME ONE Stop: 08/05/16 04:03 Last Admin: 08/05/16 04:32 Dose: 100 ml Morphine Sulfate (Morphine) Confirm Administered Dose 2 mg .ROUTE .STK-MED ONE Stop: 08/07/16 02:26 Last Admin: 08/07/16 04:02 Dose: Not Given Morphine Sulfate (Morphine) 1 mg IVPUSH ONETIME ONE Stop: 08/07/16 02:34 Last Admin: 08/07/16 02:28 Dose: 1 mg Nitroglycerin (Nitrostat) Confirm Administered Dose 0.4 mg .ROUTE .STK-MED ONE Stop: 08/07/16 01:51 Last Admin: 08/07/16 05:43 Dose: Not Given Nitroglycerin (Nitrostat) 0.4 mg SL Q5M PRN PRN Reason: Chest Pain Stop: 08/07/16 02:01 Nitroglycerin (Nitrostat) 0.4 mg SL Q5M STA Stop: 08/07/16 01:47 Last Admin: 08/07/16 01:57 Dose: 0.4 mg Ondansetron HCl (Zofran) 4 mg IVPUSH ONETIME ONE Stop: 08/05/16 02:33 Last Admin: 08/05/16 02:48 Dose: 4 mg Ondansetron HCl (Zofran) 4 mg IV Q6H PRN PRN Reason: Nausea/Vomiting Pantoprazole Sodium (Protonix Iv) 40 mg IV Q12HR [facility] Last Admin: 08/07/16 08:37 Dose: 40 mg Potassium Chloride (Klor-Con M20) 20 meq PO Q3H [facility] Stop: 08/08/16 13:46 Last Admin: 08/08/16 13:31 Dose: 20 meq Potassium Chloride (Klor-Con M20) 20 meq PO Q3H [facility] Stop: 08/09/16 14:16 Last Admin: 08/09/16 15:06 Dose: 20 meq Scopolamine (Transderm-Scop) 1.5 mg TOP ONETIME ONE Stop: 08/07/16 03:00 Last Admin: 08/07/16 03:16 Dose: 1.5 mg - Exam General: alert, oriented, cooperative, no acute distress HEENT: Pupils equal, Pupils reactive, EOMI, Mucous membr. moist/pink, Other ( throat: clear w/o erythema or edema) Neck: supple, trachea midline, no JVD, no thyromegaly, other (oropharynx mildly red w/o exudate or edema. Tongue is dry) Lungs: Clear to auscultation, Normal respiratory effort Cardiovascular: Regular Rate, Regular Rhythm, No Murmurs, Murmurs Abdomen: bowel sounds present, soft, no distension, tenderness (mild) (Female) Exam: Deferred Back Exam: normal inspection, decreased range of motion Extremities: no edema, normal pulses, no tenderness/swelling, no clubbing, no cyanosis, no calf tenderness Peripheral Pulses: 2+: dorsalis pedis (L), dorsalis pedis (R) Skin: warm, dry, intact Neurological: no new focal deficit Psy/Mental Status: alert, normal affect, normal mood - Problem List Review Problem List Initiated/Reviewed/Updated: Yes - My Orders Last 24 Hours: My Active Orders 08/09/16 20:53 Temazepam [Restoril] 15 mg PO BEDTIME PRN 08/09/16 Lunch Full Liquid Diet [DIET] 08/11/16 05:11 C-REACTIVE PROTEIN [CHEM] AM MAGNESIUM [CHEM] AM 08/12/16 07:00 CBC W/O DIFF,HEMOGRAM [HEME] MOTH@0700 08/16/16 07:00 CBC W/O DIFF,HEMOGRAM [HEME] MOTH@0700 08/19/16 07:00 CBC W/O DIFF,HEMOGRAM [HEME] MOTH@00 08/23/16 07:00 CBC W/O DIFF,HEMOGRAM [HEME] MOTH@00 08/26/16 07:00 CBC W/O DIFF,HEMOGRAM [HEME] MOTH@699 - Plan Plan:: Assessment/Plan: Acute: Partial SBO, continue to improve - Not a good surgical candidate given her advanced age and co-morbid conditions (severe aortic stenosis alone puts her at very high risk for cardiac event/complications) - Son was informed about her guarded condition - Bowel rest, supportive care and IV anti-biotic: Zosyn, Levaquin and Flagyl - Medical management only per family Enteritis With Focal Perforation (pneumatosis intestinalis) - Medical management only as above - WBC: 23k---> 11.95K - CRP is 21 ---> 4.9 Leukocytosis - WBC 23.51K--> 11.95K - 2/2 above - Treat underlying cause Fatty Liver on CT scan - Dietary consult - [facility] Chronic Angina - She is hemodynamically stable - Will resume Imdur 60 mg po BID Sore Throat - Likely viral - Screen for rapid strep Resolved: S/p Constipation - Increased stool in colon - Bowel prep S/p Symptomatic Hypotension - She is now off pressor S/p Junctional tachycardia - Likely induced by dobutamine - Now controlled - Will continue to monitor S/p Mild UTI - Risk Factor: Urinary Retention/Neurogenic Bladder - On IV antibiotic - UA Cx/Sx - UA Cx: none Chronic: HLD HTN CAD HF With Reduced EF 20-25% w/ Severe Aortic Stenosis and RWMA CKD Stage 3 Severe Cardiomyopathy/NYHA 3 GERD/PUD DM2, diet controlled Urinary Retention/Neurogenic Bladder OA Anxiety/Depression Plan: She remains clinically stable Routine AM Labs Advance diet as tolerated Continue PT/OT Fall Precautions SW/CM for d/c planning Code status: DNR/DNI Additional orders as above Possible d/c in am LOS anticipate > 96 hrs given the complexity of her illness
[2016-08-10] MEDS: Enoxaparin 30 MG/0.3 ML Syringe SUBCUT SCH (09:53)
[2016-08-10] MEDS: Pantoprazole 40 MG Tab.CR PO SCH (09:54)
[2016-08-10] MEDS: Simvastatin 20 MG Tab PO SCH (09:54)
[2016-08-10] MEDS: Citalopram 10 MG Tab PO SCH (09:54)
[2016-08-10] MEDS: Isosorbide Mononitrate 60 MG Tab.ER PO SCH ×2 (09:54→20:48)
[2016-08-10] MEDS: SIMETHICONE PO SCH ×2 (09:55→20:48)
[2016-08-10] MEDS: MAGNESIUM HYDROXIDE PO SCH ×2 (09:55→20:48)
[2016-08-10] MEDS: ALUMINUM HYDROXIDE PO SCH ×2 (09:55→20:48)
--- NOTE | 2016-08-10 11:07 | CT ---
CT abdomen and pelvis Technique: Multiple axial sections were obtained through the abdomen and pelvis. Intravenous and oral contrast not utilized. Comparison: Previous CT exam of 08/05/16. Findings: Small bilateral pleural effusions are seen with bibasilar atelectasis. Small bowel appears more normal in size than on previous exam. Area of bowel wall thickening on prior study poorly seen due to lack of oral contrast but likely is improved. Small amount of fluid is identified within the right abdomen which is an interval change. Subcutaneous edema noted within the body wall, more prominent on the right than on the left side. High density sludge or gallstones seen within the gallbladder. Liver shows no focal abnormality. Spleen appears within normal limits. Kidneys show no hydronephrosis. Aorta and iliac vessels show atherosclerotic change without aneurysm. No retroperitoneal adenopathy is seen. No pelvic mass or adenopathy is seen. Small amount of fluid seen within the dependent portion of the pelvis. Degenerative change and scoliosis are present within the spine. Impression: 1. Small amount of ascites which is an interval change from previous exam. 2. Small pleural effusions on both sides with bibasilar atelectasis. This is an interval change from prior exam. 3. Decreased small bowel dilatation from prior exam. Area of bowel wall thickening seen on previous CT exam within the right abdomen is not well seen because of lack of oral contrast but felt to be improved from previous exam. 4. Other incidental findings. Diagnostic code #3
[2016-08-10] MEDS: Ondansetron 4 MG/2 ML SDV IVPUSH PRN (15:31)
[2016-08-10] MEDS ORDERED: Benzocaine/Cetylpyridinium/Menthol Lozenge MUCMEM PRN (19:11)
[2016-08-11] MEDS: Piperacillin/Tazobactam 4.5 GM in Sodium Chloride 0.9% 100 ML IV SCH ×2 (02:26→11:30)
[2016-08-11] MEDS: metroNIDAZOLE/Normal Saline 500 MG in Premix Bag 1 BAG IV SCH (06:00)
[2016-08-11] MEDS: Insulin Aspart 100 Units/ML 3 ML Pen SUBCUT SCH ×4 (07:01→23:59)
[2016-08-11] MEDS ORDERED: Magnesium Sulfate/Water 2 GM in Premix Bag 1 BAG IV ONE (08:45)
[2016-08-11] MEDS ORDERED: Furosemide 40 MG Tab PO SCH (09:00)
[2016-08-11] MEDS: Isosorbide Mononitrate 60 MG Tab.ER PO SCH ×2 (09:01→21:35)
[2016-08-11] MEDS: Simvastatin 20 MG Tab PO SCH (09:01)
[2016-08-11] MEDS: Citalopram 10 MG Tab PO SCH (09:01)
[2016-08-11] MEDS: MAGNESIUM HYDROXIDE PO SCH ×2 (09:03→21:35)
[2016-08-11] MEDS: Pantoprazole 40 MG Tab.CR PO SCH (09:03)
[2016-08-11] MEDS: Enoxaparin 30 MG/0.3 ML Syringe SUBCUT SCH (09:03)
[2016-08-11] MEDS: ALUMINUM HYDROXIDE PO SCH ×2 (09:03→21:35)
[2016-08-11] MEDS: SIMETHICONE PO SCH ×2 (09:03→21:35)
[2016-08-11] MEDS ORDERED: Furosemide 40 MG/4 ML VIAL IVPUSH ONE (13:11)
[2016-08-11] MEDS: metroNIDAZOLE 500 MG Tab PO SCH ×2 (13:55→21:35)
--- NOTE | 2016-08-11 15:05 | PCM.PN ---
<Angie Sullivan M - Last Filed: 08/11/16 14:53> - General Info Date of Service: 08/11/16 Admission Dx/Problem (Free Text): Admission Diagnosis/Problem Admission Diagnosis/Problem Small bowel obstruction Ghislaine is a pleasant 89yo female seen this morning s/p resolving SBO with small perforation medically managed. Diet has been slowly advanced. Regular diet this morning. She denies n/v. She continues to have loose stools. No abdominal pain this am, no CP, SOB, MILLER. Strength is down, she is working with PT/OT. Functional Status: Reports: pain controlled, tolerating diet (thus far has advanced from NPO-clear liquids-full liquids and regular just last evening- tolerating), ambulating, urinating. Denies: new symptoms - Review of Systems General: Reports: Weakness, Fatigue HEENT: Reports: no symptoms Pulmonary: Reports: no symptoms. Denies: shortness of breath, pleuritic chest pain, cough Cardiovascular: Reports: No Symptoms. Denies: Chest Pain, Palpitations, Dyspnea on Exertion, Lightheadedness Gastrointestinal: Reports: Decreased appetite, Diarrhea. Denies: Abdominal pain , Constipation, Nausea, Vomiting Genitourinary: Reports: no symptoms Musculoskeletal: Reports: no symptoms Neurological: Reports: No Symptoms Psychiatric: Reports: no symptoms - Patient Data Vitals - most recent: Last Vital Signs Temp 99.5 F 08/11/16 11:33 Pulse 88 08/11/16 11:33 Resp 20 08/11/16 11:33 BP 114/72 08/11/16 11:33 Pulse Ox 96 08/11/16 11:33 Weight - most recent: 81.647 kg I&O - last 24 hours: Intake & Output 08/10/16 08/11/16 08/11/16 22:59 06:59 14:59 Intake Total 1522 740 360 Output Total 675 Balance 847 740 360 Lab Results last 24 hrs: Laboratory Results - last 24 hr 08/10/16 08/10/16 08/11/16 Range/Units 17:19 20:47 06:51 WBC (3.98-10.04) K/mm3 RBC (3.98-5.22) M/mm3 Hgb (11.2-15.7) gm/L Hct (34.1-44.9) % MCV (79.4-94.8) fl MCH (25.6-32.2) pg MCHC (32.2-35.5) g/dl RDW Std Deviation (36.4-46.3) fL Plt Count (182-369) K/mm3 MPV (9.4-12.3) fl Neut % (Auto) (34.0-71.1) % Lymph % (Auto) (19.3-51.7) % Wake % (Auto) (4.7-12.5) % Eos % (Auto) (0.7-5.8) Baso % (Auto) (0.1-1.2) % Neut # (1.56-6.13) K/mm3 Lymph # (1.18-3.74) K/mm3 Wake # (0.24-0.36) K/mm3 Eos # (0.04-0.36) K/mm3 Baso # (0.01-0.08) K/mm3 Manual Slide Review Sodium (136-145) mEq/L Potassium (3.5-5.1) mEq/L Chloride (98-107) mEq/L Carbon Dioxide (21-32) mEq/L Anion Gap (5-15) BUN (7-18) mg/dL Creatinine (0.55-1.02) mg/dL Est Cr Clr Drug Dosing Estimated GFR (MDRD) (>60) mL/min BUN/Creatinine Ratio (14-18) Glucose (83-115) mg/dL POC Glucose 145 H 228 H 137 H (83-110) mg/dL Calcium (8.5-10.1) mg/dL Magnesium (1.8-2.4) mg/dl C-Reactive Protein (<1.0) mg/dL B-Natriuretic Peptide (0-100) pg/mL 08/11/16 08/11/16 08/11/16 Range/Units 07:00 07:00 07:00 WBC (3.98-10.04) K/mm3 RBC (3.98-5.22) M/mm3 Hgb (11.2-15.7) gm/L Hct (34.1-44.9) % MCV (79.4-94.8) fl MCH (25.6-32.2) pg MCHC (32.2-35.5) g/dl RDW Std Deviation (36.4-46.3) fL Plt Count (182-369) K/mm3 MPV (9.4-12.3) fl Neut % (Auto) (34.0-71.1) % Lymph % (Auto) (19.3-51.7) % Wake % (Auto) (4.7-12.5) % Eos % (Auto) (0.7-5.8) Baso % (Auto) (0.1-1.2) % Neut # (1.56-6.13) K/mm3 Lymph # (1.18-3.74) K/mm3 Wake # (0.24-0.36) K/mm3 Eos # (0.04-0.36) K/mm3 Baso # (0.01-0.08) K/mm3 Manual Slide Review Sodium 135 L (136-145) mEq/L Potassium 3.6 (3.5-5.1) mEq/L Chloride 105 (98-107) mEq/L Carbon Dioxide 18 L (21-32) mEq/L Anion Gap 15.6 H (5-15) BUN 7 (7-18) mg/dL Creatinine 1.2 H (0.55-1.02) mg/dL Est Cr Clr Drug Dosing TNP Estimated GFR (MDRD) 42 (>60) mL/min BUN/Creatinine Ratio 5.8 L (14-18) Glucose 158 H (83-115) mg/dL POC Glucose (83-110) mg/dL Calcium 8.1 L (8.5-10.1) mg/dL Magnesium 1.7 L (1.8-2.4) mg/dl C-Reactive Protein 5.6 H* (<1.0) mg/dL B-Natriuretic Peptide 1424 H (0-100) pg/mL 08/11/16 08/11/16 Range/Units 07:00 11:59 WBC 7.84 (3.98-10.04) K/mm3 RBC 3.03 L (3.98-5.22) M/mm3 Hgb 9.9 L (11.2-15.7) gm/L Hct 29.7 L (34.1-44.9) % MCV 98.0 H (79.4-94.8) fl MCH 32.7 H (25.6-32.2) pg MCHC 33.3 (32.2-35.5) g/dl RDW Std Deviation 49.2 H (36.4-46.3) fL Plt Count 176 L (182-369) K/mm3 MPV 9.8 (9.4-12.3) fl Neut % (Auto) 76.5 H (34.0-71.1) % Lymph % (Auto) 13.3 L (19.3-51.7) % Wake % (Auto) 8.7 (4.7-12.5) % Eos % (Auto) 0.6 L (0.7-5.8) Baso % (Auto) 0.1 (0.1-1.2) % Neut # 6.00 (1.56-6.13) K/mm3 Lymph # 1.04 L (1.18-3.74) K/mm3 Wake # 0.68 H (0.24-0.36) K/mm3 Eos # 0.05 (0.04-0.36) K/mm3 Baso # 0.01 (0.01-0.08) K/mm3 Manual Slide Review Abnormal smear Sodium (136-145) mEq/L Potassium (3.5-5.1) mEq/L Chloride (98-107) mEq/L Carbon Dioxide (21-32) mEq/L Anion Gap (5-15) BUN (7-18) mg/dL Creatinine (0.55-1.02) mg/dL Est Cr Clr Drug Dosing Estimated GFR (MDRD) (>60) mL/min BUN/Creatinine Ratio (14-18) Glucose (83-115) mg/dL POC Glucose 175 H (83-110) mg/dL Calcium (8.5-10.1) mg/dL Magnesium (1.8-2.4) mg/dl C-Reactive Protein (<1.0) mg/dL B-Natriuretic Peptide (0-100) pg/mL [place] Results last 24 hrs: Microbiology 08/10/16 19:50 Quick Strep Confirmation Culture - Preliminary Throat Group A Streptococcus Rapid Screen - Final NEGATIVE STREP A SCREEN Med Orders - Current: Current Medications Acetaminophen (Tylenol) 650 mg PO Q4H PRN PRN Reason: Pain (Mild 1-3)/fever Acetaminophen/Hydrocodone Bitart (Dovray 325-5 Mg) 1 tab PO Q4H PRN PRN Reason: Pain (moderate 4-6) Benzocaine/Menthol (Cepacol Sore Throat) 1 lozenge MUCMEM Q4HR PRN PRN Reason: Sore Throat Citalopram Hydrobromide (Celexa) 10 mg PO DAILY [facility] Last Admin: 08/11/16 09:01 Dose: 10 mg Dextrose/Water (Dextrose 50% In Water) 50 ml IVPUSH ASDIRECTED PRN PRN Reason: Hypoglycemia Enoxaparin Sodium (Lovenox) 30 mg SUBCUT DAILY [facility] Last Admin: 08/11/16 09:03 Dose: 30 mg Flunisolide (Nasalide Nasal [facility]ward) 0 ml NASBOTH DAILY [facility] Last Admin: 08/11/16 08:56 Dose: 1 spray Furosemide (Lasix) 40 mg PO DAILY [facility] Last Admin: 08/11/16 09:01 Dose: 40 mg Hydromorphone HCl (Dilaudid) 0.5 mg IVPUSH Q1H PRN PRN Reason: Pain Last Admin: 08/06/16 09:01 Dose: 0.5 mg Hydromorphone HCl (Dilaudid) 0.25 mg IVPUSH Q2H PRN PRN Reason: Pain (severe 7-10) Promethazine HCl 12.5 mg/ (Sodium Chloride) 50.5 mls @ 100 mls/hr IV Q6H PRN PRN Reason: Nausea/Vomiting Last Admin: 08/06/16 06:08 Dose: 100 mls/hr Insulin Aspart (Novolog) 0 unit SUBCUT QIDACANDBED [facility] PRN Reason: Protocol Last Admin: 08/11/16 12:19 Dose: 3 unit Isosorbide Mononitrate (Imdur) 60 mg PO BID [facility] Last Admin: 08/11/16 09:01 Dose: 60 mg Lorazepam (Ativan) 0.5 mg IV Q6H PRN PRN Reason: Anxiety Last Admin: 08/09/16 21:20 Dose: 0.5 mg Losartan Potassium (Cozaar) 100 mg PO DAILY [facility] Last Admin: 08/08/16 10:01 Dose: Not Given Metoprolol Succinate (Toprol Xl) 100 mg PO DAILY [facility] Last Admin: 08/08/16 08:42 Dose: 100 mg Metronidazole (Flagyl) 500 mg PO Q8H [facility] Last Admin: 08/11/16 13:55 Dose: 500 mg Ondansetron HCl (Zofran) 4 mg IVPUSH Q6HR PRN PRN Reason: NAUSEA Last Admin: 08/10/16 15:31 Dose: 4 mg Pantoprazole Sodium (Protonix) 40 mg PO DAILY [facility] Last Admin: 08/11/16 09:03 Dose: 40 mg Alum Hydrox/Mag (Hydrox/Simeth 10 Ml) 0 each PO BID [facility] Last Admin: 08/11/16 09:03 Dose: Not Given Saccharomyces Boulardii (Florastor) 250 mg PO BID [facility] Simvastatin (Zocor) 20 mg PO DAILY [facility] Last Admin: 08/11/16 09:01 Dose: 20 mg Sodium Chloride (Saline Flush) 10 ml FLUSH ASDIRECTED PRN PRN Reason: Keep Vein Open Last Admin: 08/05/16 02:49 Dose: 10 ml Spironolactone (Aldactone) 25 mg PO DAILY [facility] Last Admin: 08/08/16 08:43 Dose: 25 mg Temazepam (Restoril) 15 mg PO BEDTIME PRN PRN Reason: Insomnia Last Admin: 08/09/16 21:17 Dose: 15 mg Discontinued Medications Diatrizoate Meglum/Diatrizoate Sod (Gastrografin 37%) 90 ml PO ONETIME ONE Stop: 08/05/16 04:03 Last Admin: 08/05/16 04:32 Dose: 90 ml Digoxin (Lanoxin) 125 mcg IVPUSH Q4H [facility] Stop: 08/07/16 20:31 Last Admin: 08/07/16 20:43 Dose: 125 mcg Diphenhydramine HCl (Benadryl) Confirm Administered Dose 50 mg .ROUTE .STK-MED ONE Stop: 08/09/16 22:43 Last Admin: 08/09/16 22:48 Dose: Not Given Furosemide (Lasix) 20 mg IVPUSH NOW ONE Stop: 08/11/16 13:12 Last Admin: 08/11/16 13:53 Dose: 20 mg Hydromorphone HCl (Dilaudid) 0.5 mg IVPUSH ONETIME ONE Stop: 08/05/16 02:35 Last Admin: 08/05/16 02:47 Dose: 0.5 mg Hydromorphone HCl (Dilaudid) 0.5 mg IVPUSH ONETIME ONE Stop: 08/05/16 06:22 Last Admin: 08/05/16 07:04 Dose: 0.5 mg Sodium Chloride (Normal Saline) 1,000 mls @ 125 mls/hr IV ASDIRECTED [facility] Last Admin: 08/05/16 11:34 Dose: 125 mls/hr Sodium Chloride (Normal Saline) 70 mls @ 2 mls/sec IV ASDIRECTED ONE Stop: 08/05/16 04:03 Last Admin: 08/09/16 22:20 Dose: Not Given Levofloxacin/Dextrose 750 mg/ (Premix) 150 mls @ 100 mls/hr IV ONETIME ONE Stop: 08/05/16 07:42 Last Admin: 08/05/16 13:44 Dose: Not Given Metronidazole 500 mg/ Premix 100 mls @ 100 mls/hr IV ONETIME ONE Stop: 08/05/16 07:11 Last Admin: 08/05/16 06:41 Dose: 100 mls/hr Levofloxacin/Dextrose 750 mg/ (Premix) 150 mls @ 100 mls/hr IV ONETIME ONE Stop: 08/05/16 11:29 Last Admin: 08/05/16 10:20 Dose: 100 mls/hr Sodium Chloride (Normal Saline) 1,000 mls @ 125 mls/hr IV ASDIRECTED [facility] Dextrose/Sodium Chloride (Dextrose 5%-1/2 Ns) 1,000 mls @ 125 mls/hr IV ASDIRECTED [facility] Last Admin: 08/10/16 05:43 Dose: 125 mls/hr Levofloxacin/Dextrose 750 mg/ (Premix) 150 mls @ 150 mls/hr IV Q48H [facility] Last Admin: 08/07/16 09:02 Dose: 150 mls/hr Metronidazole 500 mg/ Premix 100 mls @ 100 mls/hr IV Q8H [facility] Last Admin: 08/11/16 06:00 Dose: 100 mls/hr Piperacillin Sod/Tazobactam (Sod 4.5 gm/ Sodium Chloride) 100 mls @ 200 mls/hr IV ONETIME ONE Stop: 08/06/16 10:59 Last Admin: 08/06/16 10:55 Dose: 200 mls/hr Piperacillin Sod/Tazobactam (Sod 4.5 gm/ Sodium Chloride) 100 mls @ 25 mls/hr IV Q8H [facility] Last Admin: 08/11/16 11:30 Dose: 25 mls/hr Dobutamine HCl/Dextrose (Dobutamine In D5w 250 Mg/250 Ml) 250 mg in 250 mls @ 8.66 mls/hr IV TITRATE [facility]; 2 MCG/KG/MIN PRN Reason: Protocol Last Admin: 08/07/16 03:09 Dose: 2 mcg/kg/min, 8.66 mls/hr Dobutamine HCl/Dextrose (Dobutamine In D5w 250 Mg/250 Ml) Confirm Administered Dose 250 mg in 250 mls @ as directed IV .STK-MED ONE Stop: 08/07/16 03:06 Last Admin: 08/07/16 03:53 Dose: Not Given Diltiazem HCl 100 mg/ Sodium (Chloride) 100 mls @ 5 mls/hr IV TITRATE [facility]; 5 MG /HR PRN Reason: Protocol Dobutamine HCl/Dextrose (Dobutamine In D5w 250 Mg/250 Ml) 250 mg in 250 mls @ 8.834 mls/hr IV TITRATE [facility]; 2 MCG/KG/MIN PRN Reason: Protocol Last Admin: 08/07/16 12:02 Dose: 2 mcg/kg/min, 8.834 mls/hr Magnesium Sulfate 2 gm/ Premix 50 mls @ 25 mls/hr IV ONETIME ONE Stop: 08/08/16 12:44 Last Admin: 08/08/16 12:32 Dose: 25 mls/hr Magnesium Sulfate 2 gm/ Premix 50 mls @ 25 mls/hr IV ONETIME ONE Stop: 08/09/16 13:14 Last Admin: 08/09/16 10:30 Dose: 25 mls/hr Magnesium Sulfate 2 gm/ Premix 50 mls @ 25 mls/hr IV ONETIME ONE Stop: 08/11/16 10:44 Last Admin: 08/11/16 08:55 Dose: 25 mls/hr Iopamidol (Isovue-370 (76%)) 100 ml IVPUSH ONETIME ONE Stop: 08/05/16 04:03 Last Admin: 08/05/16 04:32 Dose: 100 ml Magnesium Sulfate (Pharmacy To Dose - Magnesium Replacement) 1 dose .XX ASDIRECTED [facility] Morphine Sulfate (Morphine) Confirm Administered Dose 2 mg .ROUTE .STK-MED ONE Stop: 08/07/16 02:26 Last Admin: 08/07/16 04:02 Dose: Not Given Morphine Sulfate (Morphine) 1 mg IVPUSH ONETIME ONE Stop: 08/07/16 02:34 Last Admin: 08/07/16 02:28 Dose: 1 mg Nitroglycerin (Nitrostat) Confirm Administered Dose 0.4 mg .ROUTE .STK-MED ONE Stop: 08/07/16 01:51 Last Admin: 08/07/16 05:43 Dose: Not Given Nitroglycerin (Nitrostat) 0.4 mg SL Q5M PRN PRN Reason: Chest Pain Stop: 08/07/16 02:01 Nitroglycerin (Nitrostat) 0.4 mg SL Q5M [facility] Stop: 08/07/16 01:47 Last Admin: 08/07/16 01:57 Dose: 0.4 mg Ondansetron HCl (Zofran) 4 mg IVPUSH ONETIME ONE Stop: 08/05/16 02:33 Last Admin: 08/05/16 02:48 Dose: 4 mg Ondansetron HCl (Zofran) 4 mg IV Q6H PRN PRN Reason: Nausea/Vomiting Pantoprazole Sodium (Protonix Iv) 40 mg IV Q12HR [facility] Last Admin: 08/07/16 08:37 Dose: 40 mg Potassium Chloride (Pharmacy To Dose - Potassium Replacement) 1 dose .XX ASDIRECTED [facility] Potassium Chloride (Klor-Con M20) 20 meq PO Q3H [facility] Stop: 08/08/16 13:46 Last Admin: 08/08/16 13:31 Dose: 20 meq Potassium Chloride (Klor-Con M20) 20 meq PO Q3H [facility] Stop: 08/09/16 14:16 Last Admin: 08/09/16 15:06 Dose: 20 meq Scopolamine (Transderm-Scop) 1.5 mg TOP ONETIME ONE Stop: 08/07/16 03:00 Last Admin: 08/07/16 03:16 Dose: 1.5 mg - Exam Quality Assessment: DVT prophylaxis General: alert, oriented, cooperative, no acute distress HEENT: Pupils equal, Pupils reactive, EOMI, Mucous membr. moist/pink Neck: supple Lungs: Clear to auscultation, Normal respiratory effort, Decreased breath sounds (to bases) Cardiovascular: Irregular Rhythm Abdomen: bowel sounds present, soft, tenderness (mild diffuse). No: rigidity, rebound, guarding, organomegaly (Female) Exam: Deferred Back Exam: normal inspection Extremities: edema (trace to ankles) Peripheral Pulses: 1+: dorsalis pedis (L), dorsalis pedis (R) Skin: warm, dry, intact Neurological: no new focal deficit Psy/Mental Status: alert, normal affect, normal mood - Problem List & Annotations (1) Partial small bowel obstruction SNOMED Code(s): 757720165 Code(s): K56.69 - OTHER INTESTINAL OBSTRUCTION Status: Acute Priority: High (2) Perforated small intestine SNOMED Code(s): 402735869 Code(s): K63.1 - PERFORATION OF INTESTINE (NONTRAUMATIC) Status: Acute Priority: High (3) Aortic stenosis, severe SNOMED Code(s): 81115924 Code(s): I35.0 - NONRHEUMATIC AORTIC (VALVE) STENOSIS Status: Chronic Priority: Medium (4) Congestive heart failure SNOMED Code(s): 87547688 Code(s): I50.9 - HEART FAILURE, UNSPECIFIED Status: Chronic Priority: Medium Qualifiers: Congestive heart failure type: systolic Congestive heart failure chronicity : chronic Qualified Code(s): I50.22 - Chronic systolic (congestive) heart failure (5) Diabetes mellitus type 2 SNOMED Code(s): 16353613 Code(s): E11.9 - TYPE 2 DIABETES MELLITUS WITHOUT COMPLICATIONS Status: Chronic Priority: Medium (6) Renal insufficiency SNOMED Code(s): 935166575 Code(s): N28.9 - DISORDER OF KIDNEY AND URETER, UNSPECIFIED Status: Chronic Priority: Medium - Problem List Review Problem List Initiated/Reviewed/Updated: Yes - My Orders Last 24 Hours: My Active Orders 08/11/16 09:00 Furosemide [Lasix] 40 mg PO DAILY 08/11/16 14:00 metroNIDAZOLE [Flagyl] 500 mg PO Q8H 08/11/16 14:51 Acapella [RT Chest Physiotherapy] [RC] Q2HWA RT Incentive Spirometry [RC] Q2HWA Turn, Cough, Deep Breathe [RC] Q2HWA 08/11/16 21:00 Saccharomyces Boulardii [Florastor] 250 mg PO BID 08/12/16 05:00 CRP [C-REACTIVE PROTEIN] [CHEM] DAILY MAGNESIUM [CHEM] DAILY 08/12/16 05:11 CBC WITH AUTO DIFF [HEME] AM 08/12/16 07:00 BASIC METABOLIC PANEL,BMP [CHEM] DAILY 08/13/16 05:00 CRP [C-REACTIVE PROTEIN] [CHEM] DAILY MAGNESIUM [CHEM] DAILY 08/13/16 05:11 CBC WITH AUTO DIFF [HEME] AM 08/13/16 07:00 BASIC METABOLIC PANEL,BMP [CHEM] DAILY 08/14/16 05:00 CRP [C-REACTIVE PROTEIN] [CHEM] DAILY MAGNESIUM [CHEM] DAILY 08/14/16 05:11 CBC WITH AUTO DIFF [HEME] AM 08/14/16 07:00 BASIC METABOLIC PANEL,BMP [CHEM] DAILY 08/15/16 05:00 CRP [C-REACTIVE PROTEIN] [CHEM] DAILY MAGNESIUM [CHEM] DAILY 08/15/16 05:11 CBC WITH AUTO DIFF [HEME] AM 08/15/16 07:00 BASIC METABOLIC PANEL,BMP [CHEM] DAILY - Plan Plan:: Assessment/Plan: Acute: Partial SBO, with small perforation (as below) continue to improve -Medical management -Diet advanced; regular diet today, tolerating well thus far -Continues with diarrhea -Has been on zosyn and flagyl IV x 6 days- will DC IV route and switch to PO flagyl today -Florastor BID -Repeat CT abdomen/pelvis yesterday shows improving SBO, mild ascites and small bilateral pleural effusions Enteritis With Focal Perforation (pneumatosis intestinalis) - Medical management only as above - WBC: 23k---> 11.95K---continues to improve - CRP is 21 ---> 4.9 ---continues to improve Ascites on repeat CT scan yesterday; bilateral pleural effusions on CT scan yesterday--neither present on initial scan -Suspect CHF as diuretics held d/t hypotension -BNP today -Restart lasix and lasix IVP today -Repeat Echo (last >1 yr ago) Fatty Liver on CT scan - Dietary consult - [facility] Chronic Angina - She is hemodynamically stable - Will resume Imdur 60 mg po BID Sore Throat--resolving - Likely viral - Screen for rapid strep--negative Resolved: S/p Constipation - Increased stool in colon - Bowel prep-- now with diarrhea/loose stools S/p Symptomatic Hypotension - She is now off pressor--resumed usual home meds; will restart diuretics today S/p Junctional tachycardia - Likely induced by dobutamine - Now controlled - Will continue to monitor S/p Mild UTI - Risk Factor: Urinary Retention/Neurogenic Bladder - On IV antibiotic - UA Cx/Sx - UA Cx: contamination and no growth Chronic: HLD HTN CAD HF With Reduced EF 20-25% w/ Severe Aortic Stenosis and RWMA 07/10/2015-- will restart diuretics today (mild bilateral pleural effusions noted on CT scan yesterday); will order repeat Echo CKD Stage 3 Severe - will order repeat echo Cardiomyopathy/NYHA 3 GERD/PUD DM2, diet controlled- SSI while hospitalized Urinary Retention/Neurogenic Bladder OA Anxiety/Depression Plan: Continue with routine AM Labs Advance diet as tolerated - regular diet today Continue PT/OT Fall Precautions SW/CM for d/c planning-- likely dc back to [place] in next 48 hours Code status: DNR/DNI LOS anticipate > 96 hrs given the complexity of her illness <Fatoumata Mendez - Last Filed: 08/17/16 13:35> - Patient Data Vitals - most recent: Last Vital Signs Temp 36.6 C 08/13/16 08:42 Pulse 97 08/13/16 08:42 Resp 19 08/13/16 08:42 BP 108/61 08/13/16 08:42 Pulse Ox 95 08/13/16 08:42 Med Orders - Current: Current Medications Discontinued Medications Acetaminophen (Tylenol) 650 mg PO Q4H PRN PRN Reason: Pain (Mild 1-3)/fever Acetaminophen (Tylenol) 650 mg PO NOW ONE Stop: 08/12/16 07:46 Last Admin: 08/12/16 08:13 Dose: 650 mg Hydrocodone Bitart/Acetaminophen (Dovray 325-5 Mg) 1 tab PO Q4H PRN PRN Reason: Pain (moderate 4-6) Last Admin: 08/12/16 21:19 Dose: 1 tab Al Hydroxide/Mg Hydroxide (Mag-Al Plus) 30 ml PO Q4H PRN PRN Reason: Acid reflux Last Admin: 08/13/16 08:46 Dose: 30 ml Benzocaine/Menthol (Cepacol Sore Throat) 1 lozenge MUCMEM Q4HR PRN PRN Reason: Sore Throat Citalopram Hydrobromide (Celexa) 10 mg PO DAILY [facility] Last Admin: 08/13/16 08:39 Dose: 10 mg Dextrose/Water (Dextrose 50% In Water) 50 ml IVPUSH ASDIRECTED PRN PRN Reason: Hypoglycemia Diatrizoate Meglum/Diatrizoate Sod (Gastrografin 37%) 90 ml PO ONETIME ONE Stop: 08/05/16 04:03 Last Admin: 08/05/16 04:32 Dose: 90 ml Digoxin (Lanoxin) 125 mcg IVPUSH Q4H [facility] Stop: 08/07/16 20:31 Last Admin: 08/07/16 20:43 Dose: 125 mcg Diphenhydramine HCl (Benadryl) Confirm Administered Dose 50 mg .ROUTE .STK-MED ONE Stop: 08/09/16 22:43 Last Admin: 08/09/16 22:48 Dose: Not Given Enoxaparin Sodium (Lovenox) 30 mg SUBCUT DAILY [facility] Last Admin: 08/13/16 08:39 Dose: 30 mg Flunisolide (Nasalide Nasal [facility]) 0 ml NASBOTH DAILY [facility] Last Admin: 08/13/16 08:39 Dose: 2 spray Furosemide (Lasix) 40 mg PO DAILY [facility] Last Admin: 08/11/16 09:01 Dose: 40 mg Furosemide (Lasix) 20 mg IVPUSH NOW ONE Stop: 08/11/16 13:12 Last Admin: 08/11/16 13:53 Dose: 20 mg Furosemide (Lasix) 40 mg PO BIDDIURETIC [facility] Last Admin: 08/13/16 06:27 Dose: 40 mg Hydromorphone HCl (Dilaudid) 0.5 mg IVPUSH ONETIME ONE Stop: 08/05/16 02:35 Last Admin: 08/05/16 02:47 Dose: 0.5 mg Hydromorphone HCl (Dilaudid) 0.5 mg IVPUSH ONETIME ONE Stop: 08/05/16 06:22 Last Admin: 08/05/16 07:04 Dose: 0.5 mg Hydromorphone HCl (Dilaudid) 0.5 mg IVPUSH Q1H PRN PRN Reason: Pain Last Admin: 08/06/16 09:01 Dose: 0.5 mg Hydromorphone HCl (Dilaudid) 0.25 mg IVPUSH Q2H PRN PRN Reason: Pain (severe 7-10) Sodium Chloride (Normal Saline) 1,000 mls @ 125 [facility]ls[facility] Last Admin: 08/05/16 11:34 Dose: 125 mls/hr Sodium Chloride (Normal Saline) 70 mls @ 2 mls/sec IV ASDIRECTED ONE Stop: 08/05/16 04:03 Last Admin: 08/09/16 22:20 Dose: Not Given Levofloxacin/Dextrose 750 mg/ (Premix) 150 mls @ 100 mls/hr IV ONETIME ONE Stop: 08/05/16 07:42 Last Admin: 08/05/16 13:44 Dose: Not Given Metronidazole 500 mg/ Premix 100 mls @ 100 mls/hr IV ONETIME ONE Stop: 08/05/16 07:11 Last Admin: 08/05/16 06:41 Dose: 100 mls/hr Levofloxacin/Dextrose 750 mg/ (Premix) 150 mls @ 100 mls/hr IV ONETIME ONE Stop: 08/05/16 11:29 Last Admin: 08/05/16 10:20 Dose: 100 mls/hr Sodium Chloride (Normal Saline) 1,000 mls @ 125 mls/hr IV ASDIRECTED [facility] Promethazine HCl 12.5 mg/ (Sodium Chloride) 50.5 mls @ 100 mls/hr IV Q6H PRN PRN Reason: Nausea/Vomiting Last Admin: 08/06/16 06:08 Dose: 100 mls/hr Dextrose/Sodium Chloride (Dextrose 5%-1/2 Ns) 1,000 mls @ 125 mls/hr IV ASDIRECTED [facility] Last Admin: 08/10/16 05:43 Dose: 125 mls/hr Levofloxacin/Dextrose 750 mg/ (Premix) 150 mls @ 150 mls/hr IV Q48H [facility] Last Admin: 08/07/16 09:02 Dose: 150 mls/hr Metronidazole 500 mg/ Premix 100 mls @ 100 mls/hr IV Q8H [facility] Last Admin: 08/11/16 06:00 Dose: 100 mls/hr Piperacillin Sod/Tazobactam (Sod 4.5 gm/ Sodium Chloride) 100 mls @ 200 mls/hr IV ONETIME ONE Stop: 08/06/16 10:59 Last Admin: 08/06/16 10:55 Dose: 200 mls/hr Piperacillin Sod/Tazobactam (Sod 4.5 gm/ Sodium Chloride) 100 mls @ 25 mls/hr IV Q8H [facility] Last Admin: 08/11/16 11:30 Dose: 25 mls/hr Dobutamine HCl/Dextrose (Dobutamine In D5w 250 Mg/250 Ml) 250 mg in 250 mls @ 8.66 mls/hr IV TITRATE [facility]; 2 MCG/KG/MIN PRN Reason: Protocol Last Admin: 08/07/16 03:09 Dose: 2 mcg/kg/min, 8.66 mls/hr Dobutamine HCl/Dextrose (Dobutamine In D5w 250 Mg/250 Ml) Confirm Administered Dose 250 mg in 250 mls @ as directed IV .STK-MED ONE Stop: 08/07/16 03:06 Last Admin: 08/07/16 03:53 Dose: Not Given Diltiazem HCl 100 mg/ Sodium (Chloride) 100 mls @ 5 mls/hr IV TITRATE [facility]; 5 MG /HR PRN Reason: Protocol Dobutamine HCl/Dextrose (Dobutamine In D5w 250 Mg/250 Ml) 250 mg in 250 mls @ 8.834 mls/hr IV TITRATE [facility]; 2 MCG/KG/MIN PRN Reason: Protocol Last Admin: 08/07/16 12:02 Dose: 2 mcg/kg/min, 8.834 mls/hr Magnesium Sulfate 2 gm/ Premix 50 mls @ 25 mls/hr IV ONETIME ONE Stop: 08/08/16 12:44 Last Admin: 08/08/16 12:32 Dose: 25 mls/hr Magnesium Sulfate 2 gm/ Premix 50 mls @ 25 mls/hr IV ONETIME ONE Stop: 08/09/16 13:14 Last Admin: 08/09/16 10:30 Dose: 25 mls/hr Magnesium Sulfate 2 gm/ Premix 50 mls @ 25 mls/hr IV ONETIME ONE Stop: 08/11/16 10:44 Last Admin: 08/11/16 08:55 Dose: 25 mls/hr Insulin Aspart (Novolog) 0 unit SUBCUT QIDACANDBED [facility] PRN Reason: Protocol Last Admin: 08/13/16 07:48 Dose: Not Given Iopamidol (Isovue-370 (76%)) 100 ml IVPUSH ONETIME ONE Stop: 08/05/16 04:03 Last Admin: 08/05/16 04:32 Dose: 100 ml Isosorbide Mononitrate (Imdur) 60 mg PO BID [facility] Last Admin: 08/13/16 08:39 Dose: 60 mg Lorazepam (Ativan) 0.5 mg IV Q6H PRN PRN Reason: Anxiety Last Admin: 08/09/16 21:20 Dose: 0.5 mg Losartan Potassium (Cozaar) 100 mg PO DAILY [facility] Last Admin: 08/13/16 08:41 Dose: 100 mg Magnesium Oxide (Magnesium Oxide) 400 mg PO DAILY [facility] Last Admin: 08/13/16 08:39 Dose: 400 mg Magnesium Sulfate (Pharmacy To Dose - Magnesium Replacement) 1 dose .XX ASDIRECTED [facility] Metoprolol Succinate (Toprol Xl) 100 mg PO DAILY [facility] Last Admin: 08/13/16 08:41 Dose: 100 mg Metronidazole (Flagyl) 500 mg PO Q8H [facility] Last Admin: 08/13/16 06:26 Dose: 500 mg Morphine Sulfate (Morphine) Confirm Administered Dose 2 mg .ROUTE .STK-MED ONE Stop: 08/07/16 02:26 Last Admin: 08/07/16 04:02 Dose: Not Given Morphine Sulfate (Morphine) 1 mg IVPUSH ONETIME ONE Stop: 08/07/16 02:34 Last Admin: 08/07/16 02:28 Dose: 1 mg Nitroglycerin (Nitrostat) Confirm Administered Dose 0.4 mg .ROUTE .STK-MED ONE Stop: 08/07/16 01:51 Last Admin: 08/07/16 05:43 Dose: Not Given Nitroglycerin (Nitrostat) 0.4 mg SL Q5M PRN PRN Reason: Chest Pain Stop: 08/07/16 02:01 Nitroglycerin (Nitrostat) 0.4 mg SL Q5M [facility] Stop: 08/07/16 01:47 Last Admin: 08/07/16 01:57 Dose: 0.4 mg Ondansetron HCl (Zofran) 4 mg IVPUSH ONETIME ONE Stop: 08/05/16 02:33 Last Admin: 08/05/16 02:48 Dose: 4 mg Ondansetron HCl (Zofran) 4 mg IVPUSH Q6HR PRN PRN Reason: NAUSEA Last Admin: 08/13/16 02:12 Dose: 4 mg Ondansetron HCl (Zofran) 4 mg IV Q6H PRN PRN Reason: Nausea/Vomiting Pantoprazole Sodium (Protonix Iv) 40 mg IV Q12HR [facility] Last Admin: 08/07/16 08:37 Dose: 40 mg Pantoprazole Sodium (Protonix) 40 mg PO DAILY [facility] Last Admin: 08/13/16 08:39 Dose: 40 mg Alum Hydrox/Mag (Hydrox/Simeth 10 Ml) 0 each PO BID [facility] Last Admin: 08/13/16 08:42 Dose: Not Given Potassium Chloride (Pharmacy To Dose - Potassium Replacement) 1 dose .XX ASDIRECTED [facility] Potassium Chloride (Klor-Con M20) 20 meq PO Q3H [facility] Stop: 08/08/16 13:46 Last Admin: 08/08/16 13:31 Dose: 20 meq Potassium Chloride (Klor-Con M20) 20 meq PO Q3H [facility] Stop: 08/09/16 14:16 Last Admin: 08/09/16 15:06 Dose: 20 meq Potassium Chloride (Klor-Con M20) 20 meq PO TID [facility] Last Admin: 08/13/16 08:39 Dose: 20 meq Potassium Chloride (Klor-Con M20) 20 meq PO ONETIME ONE Stop: 08/13/16 09:38 Last Admin: 08/13/16 10:20 Dose: 20 meq Saccharomyces Boulardii (Florastor) 250 mg PO BID [facility] Last Admin: 08/12/16 08:14 Dose: 250 mg Saccharomyces Boulardii (Florastor) 250 mg PO DAILY [facility] Last Admin: 08/13/16 08:39 Dose: 250 mg Scopolamine (Transderm-Scop) 1.5 mg TOP ONETIME ONE Stop: 08/07/16 03:00 Last Admin: 08/07/16 03:16 Dose: 1.5 mg Simvastatin (Zocor) 20 mg PO DAILY [facility] Last Admin: 08/13/16 08:39 Dose: 20 mg Sodium Chloride (Saline Flush) 10 ml FLUSH ASDIRECTED PRN PRN Reason: Keep Vein Open Last Admin: 08/05/16 02:49 Dose: 10 ml Spironolactone (Aldactone) 25 mg PO DAILY [facility] Last Admin: 08/13/16 08:39 Dose: 25 mg Temazepam (Restoril) 15 mg PO BEDTIME PRN PRN Reason: Insomnia Last Admin: 08/11/16 21:35 Dose: 15 mg - Plan Plan:: LOS>96 hours, slow progress, see above for details.
[2016-08-11] MEDS: Temazepam 15 MG Cap PO PRN (21:35)
[2016-08-11] MEDS: Saccharomyces Boulardii (Probiotic) 250 MG Cap PO SCH (21:35)
[2016-08-12] MEDS: metroNIDAZOLE 500 MG Tab PO SCH ×3 (06:42→21:07)
[2016-08-12] MEDS: Insulin Aspart 100 Units/ML 3 ML Pen SUBCUT SCH ×4 (06:46→21:06)
[2016-08-12] MEDS ORDERED: Acetaminophen 325 MG Tab PO ONE (07:45)
[2016-08-12] MEDS: Pantoprazole 40 MG Tab.CR PO SCH (08:13)
[2016-08-12] MEDS: Citalopram 10 MG Tab PO SCH (08:13)
[2016-08-12] MEDS: Isosorbide Mononitrate 60 MG Tab.ER PO SCH ×2 (08:13→21:07)
[2016-08-12] MEDS: Simvastatin 20 MG Tab PO SCH (08:14)
[2016-08-12] MEDS: MAGNESIUM HYDROXIDE PO SCH ×2 (08:14→21:08)
[2016-08-12] MEDS: Saccharomyces Boulardii (Probiotic) 250 MG Cap PO SCH (08:14)
[2016-08-12] MEDS: Enoxaparin 30 MG/0.3 ML Syringe SUBCUT SCH (08:14)
[2016-08-12] MEDS: ALUMINUM HYDROXIDE PO SCH ×2 (08:14→21:08)
[2016-08-12] MEDS: SIMETHICONE PO SCH ×2 (08:14→21:08)
--- NOTE | 2016-08-12 10:46 | PCM.PN ---
<Angie Sullivan M - Last Filed: 08/12/16 13:11> - General Info Date of Service: 08/12/16 Admission Dx/Problem (Free Text): Admission Diagnosis/Problem Admission Diagnosis/Problem Small bowel obstruction Ghislaine is a pleasant 89yo female seen this morning s/p resolving SBO with small perforation medically managed. Diet has been slowly advanced. Regular diet, tolerating well. She denies n/v. She continues to have loose stools. No abdominal pain this am, no CP, SOB, MILLER. Strength is down, she is working with PT/OT. Functional Status: Reports: pain controlled, tolerating diet, ambulating, urinating. Denies: new symptoms - Review of Systems General: Reports: Weakness HEENT: Reports: no symptoms Pulmonary: Reports: no symptoms Cardiovascular: Reports: No Symptoms Gastrointestinal: Reports: Diarrhea Genitourinary: Reports: no symptoms Musculoskeletal: Reports: no symptoms Skin: Reports: no symptoms Neurological: Reports: No Symptoms Psychiatric: Reports: no symptoms - Patient Data Vitals - most recent: Last Vital Signs Temp 98.2 F 08/12/16 08:08 Pulse 52 L 08/12/16 08:08 Resp 18 08/12/16 08:08 BP 126/93 H 08/12/16 08:08 Pulse Ox 95 08/12/16 08:08 Weight - most recent: 81.783 kg I&O - last 24 hours: Intake & Output 08/11/16 08/12/16 08/12/16 22:59 06:59 14:59 Intake Total 1025 800 Balance 1025 800 Lab Results last 24 hrs: Laboratory Results - last 24 hr 08/11/16 08/11/16 08/11/16 Range/Units 07:00 11:59 18:18 WBC 7.84 (3.98-10.04) K/mm3 RBC 3.03 L (3.98-5.22) M/mm3 Hgb 9.9 L (11.2-15.7) gm/L Hct 29.7 L (34.1-44.9) % MCV 98.0 H (79.4-94.8) fl MCH 32.7 H (25.6-32.2) pg MCHC 33.3 (32.2-35.5) g/dl RDW Std Deviation 49.2 H (36.4-46.3) fL Plt Count 176 L (182-369) K/mm3 MPV 9.8 (9.4-12.3) fl Neut % (Auto) 76.5 H (34.0-71.1) % Lymph % (Auto) 13.3 L (19.3-51.7) % [place] % (Auto) 8.7 (4.7-12.5) % Eos % (Auto) 0.6 L (0.7-5.8) Baso % (Auto) 0.1 (0.1-1.2) % Neut # 6.00 (1.56-6.13) K/mm3 Lymph # 1.04 L (1.18-3.74) K/mm3 Neut # (Auto) (1.56-6.13) K/mm3 Bleckley # 0.68 H (0.24-0.36) K/mm3 Lymph # (Auto) (1.18-3.74) K/mm3 [place] # (Auto) (0.24-0.36) K/mm3 Eos # 0.05 (0.04-0.36) K/mm3 Baso # 0.01 (0.01-0.08) K/mm3 Eos # (Auto) (0.04-0.36) K/mm3 Baso # (Auto) (0.01-0.08) K/mm3 Manual Slide Review Abnormal smear Sodium (136-145) mEq/L Potassium (3.5-5.1) mEq/L Chloride (98-107) mEq/L Carbon Dioxide (21-32) mEq/L Anion Gap (5-15) BUN (7-18) mg/dL Creatinine (0.55-1.02) mg/dL Est Cr Clr Drug Dosing Estimated GFR (MDRD) (>60) mL/min BUN/Creatinine Ratio (14-18) Glucose (83-115) mg/dL POC Glucose 175 H 163 H (83-110) mg/dL Calcium (8.5-10.1) mg/dL Magnesium (1.8-2.4) mg/dl C-Reactive Protein (<1.0) mg/dL 08/11/16 08/12/16 08/12/16 Range/Units 22:01 06:45 06:45 WBC 9.96 (3.98-10.04) K/mm3 RBC 3.03 L (3.98-5.22) M/mm3 Hgb 9.8 L (11.2-15.7) gm/L Hct 29.7 L (34.1-44.9) % MCV 98.0 H (79.4-94.8) fl MCH 32.3 H (25.6-32.2) pg MCHC 33.0 (32.2-35.5) g/dl RDW Std Deviation 50.2 H (36.4-46.3) fL Plt Count 183 (182-369) K/mm3 MPV 9.6 (9.4-12.3) fl Neut % (Auto) 77.5 H (34.0-71.1) % Lymph % (Auto) 13.6 L (19.3-51.7) % [place] % (Auto) 8.0 (4.7-12.5) % Eos % (Auto) 0.3 L (0.7-5.8) Baso % (Auto) 0.1 (0.1-1.2) % Neut # (1.56-6.13) K/mm3 Lymph # (1.18-3.74) K/mm3 Neut # (Auto) 7.72 H (1.56-6.13) K/mm3 [place] # (0.24-0.36) K/mm3 Lymph # (Auto) 1.35 (1.18-3.74) K/mm3 [place] # (Auto) 0.80 H (0.24-0.36) K/mm3 Eos # (0.04-0.36) K/mm3 Baso # (0.01-0.08) K/mm3 Eos # (Auto) 0.03 L (0.04-0.36) K/mm3 Baso # (Auto) 0.01 (0.01-0.08) K/mm3 Manual Slide Review Sodium 138 (136-145) mEq/L Potassium 3.0 L (3.5-5.1) mEq/L Chloride 108 H (98-107) mEq/L Carbon Dioxide 17 L (21-32) mEq/L Anion Gap 16.0 H (5-15) BUN 8 (7-18) mg/dL Creatinine 1.2 H (0.55-1.02) mg/dL Est Cr Clr Drug Dosing TNP Estimated GFR (MDRD) 42 (>60) mL/min BUN/Creatinine Ratio 6.7 L (14-18) Glucose 154 H (83-115) mg/dL POC Glucose 142 H (83-110) mg/dL Calcium 7.9 L (8.5-10.1) mg/dL Magnesium (1.8-2.4) mg/dl C-Reactive Protein (<1.0) mg/dL 08/12/16 08/12/16 Range/Units 06:45 06:45 WBC (3.98-10.04) K/mm3 RBC (3.98-5.22) M/mm3 Hgb (11.2-15.7) gm/L Hct (34.1-44.9) % MCV (79.4-94.8) fl MCH (25.6-32.2) pg MCHC (32.2-35.5) g/dl RDW Std Deviation (36.4-46.3) fL Plt Count (182-369) K/mm3 MPV (9.4-12.3) fl Neut % (Auto) (34.0-71.1) % Lymph % (Auto) (19.3-51.7) % [place] % (Auto) (4.7-12.5) % Eos % (Auto) (0.7-5.8) Baso % (Auto) (0.1-1.2) % Neut # (1.56-6.13) K/mm3 Lymph # (1.18-3.74) K/mm3 Neut # (Auto) (1.56-6.13) K/mm3 [place] # (0.24-0.36) K/mm3 Lymph # (Auto) (1.18-3.74) K/mm3 [place] # (Auto) (0.24-0.36) K/mm3 Eos # (0.04-0.36) K/mm3 Baso # (0.01-0.08) K/mm3 Eos # (Auto) (0.04-0.36) K/mm3 Baso # (Auto) (0.01-0.08) K/mm3 Manual Slide Review Sodium (136-145) mEq/L Potassium (3.5-5.1) mEq/L Chloride (98-107) mEq/L Carbon Dioxide (21-32) mEq/L Anion Gap (5-15) BUN (7-18) mg/dL Creatinine (0.55-1.02) mg/dL Est Cr Clr Drug Dosing Estimated GFR (MDRD) (>60) mL/min BUN/Creatinine Ratio (14-18) Glucose (83-115) mg/dL POC Glucose 138 H (83-110) mg/dL Calcium (8.5-10.1) mg/dL Magnesium 1.8 (1.8-2.4) mg/dl C-Reactive Protein 8.1 H* (<1.0) mg/dL [place] Results last 24 hrs: Microbiology 08/10/16 19:50 Quick Strep Confirmation Culture - Final Throat NEGATIVE FOR BETA STREP Group A Streptococcus Rapid Screen - Final NEGATIVE STREP A SCREEN Med Orders - Current: Current Medications Acetaminophen (Tylenol) 650 mg PO Q4H PRN PRN Reason: Pain (Mild 1-3)/fever Acetaminophen/Hydrocodone Bitart ([place] 325-5 Mg) 1 tab PO Q4H PRN PRN Reason: Pain (moderate 4-6) Benzocaine/Menthol (Cepacol Sore Throat) 1 lozenge MUCMEM Q4HR PRN PRN Reason: Sore Throat Citalopram Hydrobromide (Celexa) 10 mg PO DAILY [facility] Last Admin: 08/12/16 08:13 Dose: 10 mg Dextrose/Water (Dextrose 50% In Water) 50 ml IVPUSH ASDIRECTED PRN PRN Reason: Hypoglycemia Enoxaparin Sodium (Lovenox) 30 mg SUBCUT DAILY [facility] Last Admin: 08/12/16 08:14 Dose: 30 mg Flunisolide (Nasalide Nasal Reserve) 0 ml NASBOTH DAILY [facility] Last Admin: 08/12/16 08:14 Dose: 2 spray Furosemide (Lasix) 40 mg PO BIDDIURETIC [facility] Hydromorphone HCl (Dilaudid) 0.5 mg IVPUSH Q1H PRN PRN Reason: Pain Last Admin: 08/06/16 09:01 Dose: 0.5 mg Hydromorphone HCl (Dilaudid) 0.25 mg IVPUSH Q2H PRN PRN Reason: Pain (severe 7-10) Promethazine HCl 12.5 mg/ (Sodium Chloride) 50.5 mls @ 100 mls/hr IV Q6H PRN PRN Reason: Nausea/Vomiting Last Admin: 08/06/16 06:08 Dose: 100 mls/hr Insulin Aspart (Novolog) 0 unit SUBCUT QIDACANDBED [facility] PRN Reason: Protocol Last Admin: 08/12/16 06:46 Dose: Not Given Isosorbide Mononitrate (Imdur) 60 mg PO BID [facility] Last Admin: 08/12/16 08:13 Dose: 60 mg Lorazepam (Ativan) 0.5 mg IV Q6H PRN PRN Reason: Anxiety Last Admin: 08/09/16 21:20 Dose: 0.5 mg Losartan Potassium (Cozaar) 100 mg PO DAILY [facility] Last Admin: 08/08/16 10:01 Dose: Not Given Metoprolol Succinate (Toprol Xl) 100 mg PO DAILY [facility] Last Admin: 08/08/16 08:42 Dose: 100 mg Metronidazole (Flagyl) 500 mg PO Q8H [facility] Last Admin: 08/12/16 06:42 Dose: 500 mg Ondansetron HCl (Zofran) 4 mg IVPUSH Q6HR PRN PRN Reason: NAUSEA Last Admin: 08/10/16 15:31 Dose: 4 mg Pantoprazole Sodium (Protonix) 40 mg PO DAILY [facility] Last Admin: 08/12/16 08:13 Dose: 40 mg Alum Hydrox/Mag (Hydrox/Simeth 10 Ml) 0 each PO BID [facility] Last Admin: 08/12/16 08:14 Dose: Not Given Potassium Chloride (Klor-Con M20) 20 meq PO TID [facility] Saccharomyces Boulardii (Florastor) 250 mg PO BID [facility] Last Admin: 08/12/16 08:14 Dose: 250 mg Simvastatin (Zocor) 20 mg PO DAILY [facility] Last Admin: 08/12/16 08:14 Dose: 20 mg Sodium Chloride (Saline Flush) 10 ml FLUSH ASDIRECTED PRN PRN Reason: Keep Vein Open Last Admin: 08/05/16 02:49 Dose: 10 ml Spironolactone (Aldactone) 25 mg PO DAILY [facility] Last Admin: 08/08/16 08:43 Dose: 25 mg Temazepam (Restoril) 15 mg PO BEDTIME PRN PRN Reason: Insomnia Last Admin: 08/11/16 21:35 Dose: 15 mg Discontinued Medications Acetaminophen (Tylenol) 650 mg PO NOW ONE Stop: 08/12/16 07:46 Last Admin: 08/12/16 08:13 Dose: 650 mg Diatrizoate Meglum/Diatrizoate Sod (Gastrografin 37%) 90 ml PO ONETIME ONE Stop: 08/05/16 04:03 Last Admin: 08/05/16 04:32 Dose: 90 ml Digoxin (Lanoxin) 125 mcg IVPUSH Q4H [facility] Stop: 08/07/16 20:31 Last Admin: 08/07/16 20:43 Dose: 125 mcg Diphenhydramine HCl (Benadryl) Confirm Administered Dose 50 mg .ROUTE .STK-MED ONE Stop: 08/09/16 22:43 Last Admin: 08/09/16 22:48 Dose: Not Given Furosemide (Lasix) 40 mg PO DAILY [facility] Last Admin: 08/11/16 09:01 Dose: 40 mg Furosemide (Lasix) 20 mg IVPUSH NOW ONE Stop: 08/11/16 13:12 Last Admin: 08/11/16 13:53 Dose: 20 mg Hydromorphone HCl (Dilaudid) 0.5 mg IVPUSH ONETIME ONE Stop: 08/05/16 02:35 Last Admin: 08/05/16 02:47 Dose: 0.5 mg Hydromorphone HCl (Dilaudid) 0.5 mg IVPUSH ONETIME ONE Stop: 08/05/16 06:22 Last Admin: 08/05/16 07:04 Dose: 0.5 mg Sodium Chloride (Normal Saline) 1,000 mls @ 125 mls/hr IV ASDIRECTED [facility] Last Admin: 08/05/16 11:34 Dose: 125 mls/hr Sodium Chloride (Normal Saline) 70 mls @ 2 mls/sec IV ASDIRECTED ONE Stop: 08/05/16 04:03 Last Admin: 08/09/16 22:20 Dose: Not Given Levofloxacin/Dextrose 750 mg/ (Premix) 150 mls @ 100 mls/hr IV ONETIME ONE Stop: 08/05/16 07:42 Last Admin: 08/05/16 13:44 Dose: Not Given Metronidazole 500 mg/ Premix 100 mls @ 100 mls/hr IV ONETIME ONE Stop: 08/05/16 07:11 Last Admin: 08/05/16 06:41 Dose: 100 mls/hr Levofloxacin/Dextrose 750 mg/ (Premix) 150 mls @ 100 mls/hr IV ONETIME ONE Stop: 08/05/16 11:29 Last Admin: 08/05/16 10:20 Dose: 100 mls/hr Sodium Chloride (Normal Saline) 1,000 mls @ 125 mls/hr IV ASDIRECTED [facility] Dextrose/Sodium Chloride (Dextrose 5%-1/2 Ns) 1,000 mls @ 125 mls/hr IV ASDIRECTED [facility] Last Admin: 08/10/16 05:43 Dose: 125 mls/hr Levofloxacin/Dextrose 750 mg/ (Premix) 150 mls @ 150 mls/hr IV Q48H [facility] Last Admin: 08/07/16 09:02 Dose: 150 mls/hr Metronidazole 500 mg/ Premix 100 mls @ 100 mls/hr IV Q8H [facility] Last Admin: 08/11/16 06:00 Dose: 100 mls/hr Piperacillin Sod/Tazobactam (Sod 4.5 gm/ Sodium Chloride) 100 mls @ 200 mls/hr IV ONETIME ONE Stop: 08/06/16 10:59 Last Admin: 08/06/16 10:55 Dose: 200 mls/hr Piperacillin Sod/Tazobactam (Sod 4.5 gm/ Sodium Chloride) 100 mls @ 25 mls/hr IV Q8H [facility] Last Admin: 08/11/16 11:30 Dose: 25 mls/hr Dobutamine HCl/Dextrose (Dobutamine In D5w 250 Mg/250 Ml) 250 mg in 250 mls @ 8.66 mls/hr IV TITRATE MORIS; 2 MCG/KG/MIN PRN Reason: Protocol Last Admin: 08/07/16 03:09 Dose: 2 mcg/kg/min, 8.66 mls/hr Dobutamine HCl/Dextrose (Dobutamine In D5w 250 Mg/250 Ml) Confirm Administered Dose 250 mg in 250 mls @ as directed IV .STK-MED ONE Stop: 08/07/16 03:06 Last Admin: 08/07/16 03:53 Dose: Not Given Diltiazem HCl 100 mg/ Sodium (Chloride) 100 mls @ 5 mls/hr IV TITRATE MORIS; 5 MG /HR PRN Reason: Protocol Dobutamine HCl/Dextrose (Dobutamine In D5w 250 Mg/250 Ml) 250 mg in 250 mls @ 8.834 mls/hr IV TITRATE MORIS; 2 MCG/KG/MIN PRN Reason: Protocol Last Admin: 08/07/16 12:02 Dose: 2 mcg/kg/min, 8.834 mls/hr Magnesium Sulfate 2 gm/ Premix 50 mls @ 25 mls/hr IV ONETIME ONE Stop: 08/08/16 12:44 Last Admin: 08/08/16 12:32 Dose: 25 mls/hr Magnesium Sulfate 2 gm/ Premix 50 mls @ 25 mls/hr IV ONETIME ONE Stop: 08/09/16 13:14 Last Admin: 08/09/16 10:30 Dose: 25 mls/hr Magnesium Sulfate 2 gm/ Premix 50 mls @ 25 mls/hr IV ONETIME ONE Stop: 08/11/16 10:44 Last Admin: 08/11/16 08:55 Dose: 25 mls/hr Iopamidol (Isovue-370 (76%)) 100 ml IVPUSH ONETIME ONE Stop: 08/05/16 04:03 Last Admin: 08/05/16 04:32 Dose: 100 ml Magnesium Sulfate (Pharmacy To Dose - Magnesium Replacement) 1 dose .XX ASDIRECTED [facility] Morphine Sulfate (Morphine) Confirm Administered Dose 2 mg .ROUTE .STK-MED ONE Stop: 08/07/16 02:26 Last Admin: 08/07/16 04:02 Dose: Not Given Morphine Sulfate (Morphine) 1 mg IVPUSH ONETIME ONE Stop: 08/07/16 02:34 Last Admin: 08/07/16 02:28 Dose: 1 mg Nitroglycerin (Nitrostat) Confirm Administered Dose 0.4 mg .ROUTE .STK-MED ONE Stop: 08/07/16 01:51 Last Admin: 08/07/16 05:43 Dose: Not Given Nitroglycerin (Nitrostat) 0.4 mg SL Q5M PRN PRN Reason: Chest Pain Stop: 08/07/16 02:01 Nitroglycerin (Nitrostat) 0.4 mg SL Q5M STA Stop: 08/07/16 01:47 Last Admin: 08/07/16 01:57 Dose: 0.4 mg Ondansetron HCl (Zofran) 4 mg IVPUSH ONETIME ONE Stop: 08/05/16 02:33 Last Admin: 08/05/16 02:48 Dose: 4 mg Ondansetron HCl (Zofran) 4 mg IV Q6H PRN PRN Reason: Nausea/Vomiting Pantoprazole Sodium (Protonix Iv) 40 mg IV Q12HR [facility] Last Admin: 08/07/16 08:37 Dose: 40 mg Potassium Chloride (Pharmacy To Dose - Potassium Replacement) 1 dose .XX ASDIRECTED [facility] Potassium Chloride (Klor-Con M20) 20 meq PO Q3H [facility] Stop: 08/08/16 13:46 Last Admin: 08/08/16 13:31 Dose: 20 meq Potassium Chloride (Klor-Con M20) 20 meq PO Q3H [facility] Stop: 08/09/16 14:16 Last Admin: 08/09/16 15:06 Dose: 20 meq Scopolamine (Transderm-Scop) 1.5 mg TOP ONETIME ONE Stop: 08/07/16 03:00 Last Admin: 08/07/16 03:16 Dose: 1.5 mg - Exam Quality Assessment: DVT prophylaxis General: alert, oriented, cooperative, no acute distress HEENT: Pupils equal, Pupils reactive, EOMI, Mucous membr. moist/pink Neck: supple Lungs: Clear to auscultation, Normal respiratory effort, Decreased breath sounds (to bases) Cardiovascular: Regular Rate, Regular Rhythm, Murmurs (grade 2 systolic) Abdomen: bowel sounds present, soft, no tenderness, no distension (Female) Exam: Deferred Extremities: no edema, no calf tenderness Peripheral Pulses: 1+: dorsalis pedis (L), dorsalis pedis (R) Skin: warm, dry, intact Neurological: no new focal deficit Psy/Mental Status: alert, normal mood, other (flat affect today) - Problem List & Annotations (1) Partial small bowel obstruction SNOMED Code(s): 767171870 Code(s): K56.69 - OTHER INTESTINAL OBSTRUCTION Status: Acute Priority: High (2) Perforated small intestine SNOMED Code(s): 938182472 Code(s): K63.1 - PERFORATION OF INTESTINE (NONTRAUMATIC) Status: Acute Priority: High (3) Aortic stenosis, severe SNOMED Code(s): 58056843 Code(s): I35.0 - NONRHEUMATIC AORTIC (VALVE) STENOSIS Status: Chronic Priority: Medium (4) Congestive heart failure SNOMED Code(s): 22678120 Code(s): I50.9 - HEART FAILURE, UNSPECIFIED Status: Chronic Priority: Medium Qualifiers: Congestive heart failure type: systolic Congestive heart failure chronicity : chronic Qualified Code(s): I50.22 - Chronic systolic (congestive) heart failure (5) Diabetes mellitus type 2 SNOMED Code(s): 15927074 Code(s): E11.9 - TYPE 2 DIABETES MELLITUS WITHOUT COMPLICATIONS Status: Chronic Priority: Medium (6) Renal insufficiency SNOMED Code(s): 288685008 Code(s): N28.9 - DISORDER OF KIDNEY AND URETER, UNSPECIFIED Status: Chronic Priority: Medium - Problem List Review Problem List Initiated/Reviewed/Updated: Yes - My Orders Last 24 Hours: My Active Orders 08/11/16 14:00 metroNIDAZOLE [Flagyl] 500 mg PO Q8H 08/11/16 14:51 Acapella [RT Chest Physiotherapy] [RC] Q2HWA RT Incentive Spirometry [RC] Q2HWA Turn, Cough, Deep Breathe [RC] Q2HWA 08/11/16 21:00 Saccharomyces Boulardii [Florastor] 250 mg PO BID 08/12/16 14:00 Furosemide [Lasix] 40 mg PO BIDDIURETIC 08/12/16 15:00 Potassium Chloride [Klor-Con M20] 20 meq PO TID 08/13/16 05:00 CRP [C-REACTIVE PROTEIN] [CHEM] DAILY MAGNESIUM [CHEM] DAILY 08/13/16 05:11 CBC WITH AUTO DIFF [HEME] AM 08/13/16 07:00 BASIC METABOLIC PANEL,BMP [CHEM] DAILY 08/14/16 05:00 CRP [C-REACTIVE PROTEIN] [CHEM] DAILY MAGNESIUM [CHEM] DAILY 08/14/16 05:11 CBC WITH AUTO DIFF [HEME] AM 08/14/16 07:00 BASIC METABOLIC PANEL,BMP [CHEM] DAILY 08/15/16 05:00 CRP [C-REACTIVE PROTEIN] [CHEM] DAILY MAGNESIUM [CHEM] DAILY 08/15/16 05:11 CBC WITH AUTO DIFF [HEME] AM 08/15/16 07:00 BASIC METABOLIC PANEL,BMP [CHEM] DAILY - Plan Plan:: Assessment/Plan: Acute: Partial SBO, with small perforation (as below) continue to improve -Medical management -Diet advanced; regular diet, tolerating well thus far -Continues with diarrhea- will decrease florastor to daily -Has been on zosyn and flagyl IV x 6 days- will DC IV route and switch to PO flagyl only -Repeat CT abdomen/pelvis shows improving SBO, mild ascites and small bilateral pleural effusions Enteritis With Focal Perforation (pneumatosis intestinalis) - Medical management only as above Ascites on repeat CT scan yesterday; bilateral pleural effusions on CT scan yesterday--neither present on initial scan -Suspect CHF as diuretics held d/t hypotension -BNP elevated at 1400 -Restart lasix and lasix IVP today -Repeat Echo (last >1 yr ago) Hypokalemia -K+ 3.0 today--due to restart of diuretics (not previously on KCL prior to admit with home lasix dosing of 120mg total daily) -Replete and recheck in am, mag 1.8, will add 400mg daily mag ox Fatty Liver on CT scan - Dietary consult - [facility] Chronic Angina- not currently symptomatic - She is hemodynamically stable - Will resume Imdur 60 mg po BID Resolved: S/p Constipation - Increased stool in colon - Bowel prep-- now with diarrhea/loose stools S/p Symptomatic Hypotension - She is now off pressor--resumed usual home meds; will restart diuretics S/p Junctional tachycardia - Likely induced by dobutamine - Now controlled - Will continue to monitor S/p Mild UTI - Risk Factor: Urinary Retention/Neurogenic Bladder - On IV antibiotic - UA Cx/Sx - UA Cx: contamination and no growth Sore Throat--resolving - Likely viral - Screen for rapid strep--negative Chronic: HLD HTN CAD HF With Reduced EF 20-25% w/ Severe Aortic Stenosis and RWMA 07/10/2015-- will restart diuretics today (mild bilateral pleural effusions noted on CT scan yesterday); will order repeat Echo CKD Stage 3 Severe - will order repeat echo Cardiomyopathy/NYHA 3 GERD/PUD DM2, diet controlled- SSI while hospitalized Urinary Retention/Neurogenic Bladder OA Anxiety/Depression Plan: Continue with routine AM Labs Advance diet as tolerated - regular diet today Continue PT/OT Fall Precautions SW/CM for d/c planning-- likely dc back to [place] in next 48 hours-- now hypokalemic with addition of diuretics; discharge pending normalization of electrolytes Code status: DNR/DNI LOS anticipate > 96 hrs given the complexity of her illness <Fatoumata Mendez - Last Filed: 08/17/16 13:35> - Patient Data Vitals - most recent: Last Vital Signs Temp 36.6 C 08/13/16 08:42 Pulse 97 08/13/16 08:42 Resp 19 08/13/16 08:42 BP 108/61 08/13/16 08:42 Pulse Ox 95 08/13/16 08:42 Med Orders - Current: Current Medications Discontinued Medications Acetaminophen (Tylenol) 650 mg PO Q4H PRN PRN Reason: Pain (Mild 1-3)/fever Acetaminophen (Tylenol) 650 mg PO NOW ONE Stop: 08/12/16 07:46 Last Admin: 08/12/16 08:13 Dose: 650 mg Hydrocodone Bitart/Acetaminophen ([place] 325-5 Mg) 1 tab PO Q4H PRN PRN Reason: Pain (moderate 4-6) Last Admin: 08/12/16 21:19 Dose: 1 tab Al Hydroxide/Mg Hydroxide (Mag-Al Plus) 30 ml PO Q4H PRN PRN Reason: Acid reflux Last Admin: 08/13/16 08:46 Dose: 30 ml Benzocaine/Menthol (Cepacol Sore Throat) 1 lozenge MUCMEM Q4HR PRN PRN Reason: Sore Throat Citalopram Hydrobromide (Celexa) 10 mg PO DAILY [facility] Last Admin: 08/13/16 08:39 Dose: 10 mg Dextrose/Water (Dextrose 50% In Water) 50 ml IVPUSH ASDIRECTED PRN PRN Reason: Hypoglycemia Diatrizoate Meglum/Diatrizoate Sod (Gastrografin 37%) 90 ml PO ONETIME ONE Stop: 08/05/16 04:03 Last Admin: 08/05/16 04:32 Dose: 90 ml Digoxin (Lanoxin) 125 mcg IVPUSH Q4H [facility] Stop: 08/07/16 20:31 Last Admin: 08/07/16 20:43 Dose: 125 mcg Diphenhydramine HCl (Benadryl) Confirm Administered Dose 50 mg .ROUTE .STK-MED ONE Stop: 08/09/16 22:43 Last Admin: 08/09/16 22:48 Dose: Not Given Enoxaparin Sodium (Lovenox) 30 mg SUBCUT DAILY [facility] Last Admin: 08/13/16 08:39 Dose: 30 mg Flunisolide (Nasalide Nasal Reserve) 0 ml NASBOTH DAILY [facility] Last Admin: 08/13/16 08:39 Dose: 2 spray Furosemide (Lasix) 40 mg PO DAILY [facility] Last Admin: 08/11/16 09:01 Dose: 40 mg Furosemide (Lasix) 20 mg IVPUSH NOW ONE Stop: 08/11/16 13:12 Last Admin: 08/11/16 13:53 Dose: 20 mg Furosemide (Lasix) 40 mg PO BIDDIURETIC [facility] Last Admin: 08/13/16 06:27 Dose: 40 mg Hydromorphone HCl (Dilaudid) 0.5 mg IVPUSH ONETIME ONE Stop: 08/05/16 02:35 Last Admin: 08/05/16 02:47 Dose: 0.5 mg Hydromorphone HCl (Dilaudid) 0.5 mg IVPUSH ONETIME ONE Stop: 08/05/16 06:22 Last Admin: 08/05/16 07:04 Dose: 0.5 mg Hydromorphone HCl (Dilaudid) 0.5 mg IVPUSH Q1H PRN PRN Reason: Pain Last Admin: 08/06/16 09:01 Dose: 0.5 mg Hydromorphone HCl (Dilaudid) 0.25 mg IVPUSH Q2H PRN PRN Reason: Pain (severe 7-10) Sodium Chloride (Normal Saline) 1,000 mls @ 125 mls/hr IV ASDIRECTED [facility] Last Admin: 08/05/16 11:34 Dose: 125 mls/hr Sodium Chloride (Normal Saline) 70 mls @ 2 mls/sec IV ASDIRECTED ONE Stop: 08/05/16 04:03 Last Admin: 08/09/16 22:20 Dose: Not Given Levofloxacin/Dextrose 750 mg/ (Premix) 150 mls @ 100 mls/hr IV ONETIME ONE Stop: 08/05/16 07:42 Last Admin: 08/05/16 13:44 Dose: Not Given Metronidazole 500 mg/ Premix 100 mls @ 100 mls/hr IV ONETIME ONE Stop: 08/05/16 07:11 Last Admin: 08/05/16 06:41 Dose: 100 mls/hr Levofloxacin/Dextrose 750 mg/ (Premix) 150 mls @ 100 mls/hr IV ONETIME ONE Stop: 08/05/16 11:29 Last Admin: 08/05/16 10:20 Dose: 100 mls/hr Sodium Chloride (Normal Saline) 1,000 mls @ 125 mls/hr IV [facility]RECTED [facility] Promethazine HCl 12.5 mg/ (Sodium Chloride) 50.5 mls @ 100 mls/hr IV Q6H PRN PRN Reason: Nausea/Vomiting Last Admin: 08/06/16 06:08 Dose: 100 mls/hr Dextrose/Sodium Chloride (Dextrose 5%-1/2 Ns) 1,000 mls @ 125 mls/hr IV [facility]RECT[facility] Last Admin: 08/10/16 05:43 Dose: 125 mls/hr Levofloxacin/Dextrose 750 mg/ (Premix) 150 mls @ 150 mls/hr IV Q48H [facility] Last Admin: 08/07/16 09:02 Dose: 150 mls/hr Metronidazole 500 mg/ Premix 100 mls @ 100 mls/hr IV Q8H [facility] Last Admin: 08/11/16 06:00 Dose: 100 mls/hr Piperacillin Sod/Tazobactam (Sod 4.5 gm/ Sodium Chloride) 100 mls @ 200 mls/hr IV ONETIME ONE Stop: 08/06/16 10:59 Last Admin: 08/06/16 10:55 Dose: 200 mls/hr Piperacillin Sod/Tazobactam (Sod 4.5 gm/ Sodium Chloride) 100 mls @ 25 mls/hr IV Q8H [facility] Last Admin: 08/11/16 11:30 Dose: 25 mls/hr Dobutamine HCl/Dextrose (Dobutamine In D5w 250 Mg/250 Ml) 250 mg in 250 mls @ 8.66 mls/hr IV TITRATE [facility]; 2 MCG/KG/MIN PRN Reason: Protocol Last Admin: 08/07/16 03:09 Dose: 2 mcg/kg/min, 8.66 mls/hr Dobutamine HCl/Dextrose (Dobutamine In D5w 250 Mg/250 Ml) Confirm Administered Dose 250 mg in 250 mls @ as directed IV .STK-MED ONE Stop: 08/07/16 03:06 Last Admin: 08/07/16 03:53 Dose: Not Given Diltiazem HCl 100 mg/ Sodium (Chloride) 100 mls @ 5 mls/hr IV TITRATE [facility]; 5 MG /HR PRN Reason: Protocol Dobutamine HCl/Dextrose (Dobutamine In D5w 250 Mg/250 Ml) 250 mg in 250 mls @ 8.834 mls/hr IV TITRATE [facility]; 2 MCG/KG/MIN PRN Reason: Protocol Last Admin: 08/07/16 12:02 Dose: 2 mcg/kg/min, 8.834 mls/hr Magnesium Sulfate 2 gm/ Premix 50 mls @ 25 mls/hr IV ONETIME ONE Stop: 08/08/16 12:44 Last Admin: 08/08/16 12:32 Dose: 25 mls/hr Magnesium Sulfate 2 gm/ Premix 50 mls @ 25 mls/hr IV ONETIME ONE Stop: 08/09/16 13:14 Last Admin: 08/09/16 10:30 Dose: 25 mls/hr Magnesium Sulfate 2 gm/ Premix 50 mls @ 25 mls/hr IV ONETIME ONE Stop: 08/11/16 10:44 Last Admin: 08/11/16 08:55 Dose: 25 mls/hr Insulin Aspart (Novolog) 0 unit SUBCUT QIDACANDBED [facility]ORIS PRN Reason: Protocol Last Admin: 08/13/16 07:48 Dose: Not Given Iopamidol (Isovue-370 (76%)) 100 ml IVPUSH ONETIME ONE Stop: 08/05/16 04:03 Last Admin: 08/05/16 04:32 Dose: 100 ml Isosorbide Mononitrate (Imdur) 60 mg PO BID [facility] Last Admin: 08/13/16 08:39 Dose: 60 mg Lorazepam (Ativan) 0.5 mg IV Q6H PRN PRN Reason: Anxiety Last Admin: 08/09/16 21:20 Dose: 0.5 mg Losartan Potassium (Cozaar) 100 mg PO DAILY [facility] Last Admin: 08/13/16 08:41 Dose: 100 mg Magnesium Oxide (Magnesium Oxide) 400 mg PO DAILY [facility] Last Admin: 08/13/16 08:39 Dose: 400 mg Magnesium Sulfate (Pharmacy To Dose - Magnesium Replacement) 1 dose .XX ASDIRECTED [facility] Metoprolol Succinate (Toprol Xl) 100 mg PO DAILY [facility] Last Admin: 08/13/16 08:41 Dose: 100 mg Metronidazole (Flagyl) 500 mg PO Q8H [facility] Last Admin: 08/13/16 06:26 Dose: 500 mg Morphine Sulfate (Morphine) Confirm Administered Dose 2 mg .ROUTE .STK-MED ONE Stop: 08/07/16 02:26 Last Admin: 08/07/16 04:02 Dose: Not Given Morphine Sulfate (Morphine) 1 mg IVPUSH ONETIME ONE Stop: 08/07/16 02:34 Last Admin: 08/07/16 02:28 Dose: 1 mg Nitroglycerin (Nitrostat) Confirm Administered Dose 0.4 mg .ROUTE .STK-MED ONE Stop: 08/07/16 01:51 Last Admin: 08/07/16 05:43 Dose: Not Given Nitroglycerin (Nitrostat) 0.4 mg SL Q5M PRN PRN Reason: Chest Pain Stop: 08/07/16 02:01 Nitroglycerin (Nitrostat) 0.4 mg SL Q5M STA Stop: 08/07/16 01:47 Last Admin: 08/07/16 01:57 Dose: 0.4 mg Ondansetron HCl (Zofran) 4 mg IVPUSH ONETIME ONE Stop: 08/05/16 02:33 Last Admin: 08/05/16 02:48 Dose: 4 mg Ondansetron HCl (Zofran) 4 mg IVPUSH Q6HR PRN PRN Reason: NAUSEA Last Admin: 08/13/16 02:12 Dose: 4 mg Ondansetron HCl (Zofran) 4 mg IV Q6H PRN PRN Reason: Nausea/Vomiting Pantoprazole Sodium (Protonix Iv) 40 mg IV Q12HR [facility] Last Admin: 08/07/16 08:37 Dose: 40 mg Pantoprazole Sodium (Protonix) 40 mg PO DAILY [facility] Last Admin: 08/13/16 08:39 Dose: 40 mg Alum Hydrox/Mag (Hydrox/Simeth 10 Ml) 0 each PO BID [facility] Last Admin: 08/13/16 08:42 Dose: Not Given Potassium Chloride (Pharmacy To Dose - Potassium Replacement) 1 dose .XX ASDIRECTED [facility] Potassium Chloride (Klor-Con M20) 20 meq PO Q3H [facility] Stop: 08/08/16 13:46 Last Admin: 08/08/16 13:31 Dose: 20 meq Potassium Chloride (Klor-Con M20) 20 meq PO Q3H [facility] Stop: 08/09/16 14:16 Last Admin: 08/09/16 15:06 Dose: 20 meq Potassium Chloride (Klor-Con M20) 20 meq PO TID [facility] Last Admin: 08/13/16 08:39 Dose: 20 meq Potassium Chloride (Klor-Con M20) 20 meq PO ONETIME ONE Stop: 08/13/16 09:38 Last Admin: 08/13/16 10:20 Dose: 20 meq Saccharomyces Boulardii (Florastor) 250 mg PO BID [facility] Last Admin: 08/12/16 08:14 Dose: 250 mg Saccharomyces Boulardii (Florastor) 250 mg PO DAILY [facility] Last Admin: 08/13/16 08:39 Dose: 250 mg Scopolamine (Transderm-Scop) 1.5 mg TOP ONETIME ONE Stop: 08/07/16 03:00 Last Admin: 08/07/16 03:16 Dose: 1.5 mg Simvastatin (Zocor) 20 mg PO DAILY [facility] Last Admin: 08/13/16 08:39 Dose: 20 mg Sodium Chloride (Saline Flush) 10 ml FLUSH ASDIRECTED PRN PRN Reason: Keep Vein Open Last Admin: 08/05/16 02:49 Dose: 10 ml Spironolactone (Aldactone) 25 mg PO DAILY [facility] Last Admin: 08/13/16 08:39 Dose: 25 mg Temazepam (Restoril) 15 mg PO BEDTIME PRN PRN Reason: Insomnia Last Admin: 08/11/16 21:35 Dose: 15 mg - Plan Plan:: Responding to plan of care, LOS>96 hours
[2016-08-12] MEDS: Potassium Chloride 20 MEQ Tab.ER PO SCH ×3 (13:40→21:07)
[2016-08-12] MEDS: Magnesium Oxide 400 MG Tab PO SCH (13:40)
[2016-08-12] MEDS: Furosemide 40 MG Tab PO SCH (13:40)
[2016-08-12] MEDS: Aluminum Hydroxide/Magnesium Hydroxide/Simethicone Susp 30 ML Cup PO PRN (17:33)
[2016-08-13] MEDS: Ondansetron 4 MG/2 ML SDV IVPUSH PRN (02:12)
[2016-08-13] MEDS: metroNIDAZOLE 500 MG Tab PO SCH (06:26)
[2016-08-13] MEDS: Furosemide 40 MG Tab PO SCH (06:27)
[2016-08-13] MEDS: Insulin Aspart 100 Units/ML 3 ML Pen SUBCUT SCH (07:48)
[2016-08-13] MEDS: Citalopram 10 MG Tab PO SCH (08:39)
[2016-08-13] MEDS: Spironolactone 25 MG Tab PO SCH (08:39)
[2016-08-13] MEDS: Enoxaparin 30 MG/0.3 ML Syringe SUBCUT SCH (08:39)
[2016-08-13] MEDS: Potassium Chloride 20 MEQ Tab.ER PO SCH (08:39)
[2016-08-13] MEDS: Isosorbide Mononitrate 60 MG Tab.ER PO SCH (08:39)
[2016-08-13] MEDS: Magnesium Oxide 400 MG Tab PO SCH (08:39)
[2016-08-13] MEDS: Pantoprazole 40 MG Tab.CR PO SCH (08:39)
[2016-08-13] MEDS: Simvastatin 20 MG Tab PO SCH (08:39)
[2016-08-13] MEDS: Metoprolol Succinate 50 MG Tab.ER PO SCH (08:41)
[2016-08-13] MEDS: Losartan 100 MG Tab PO SCH (08:41)
[2016-08-13] MEDS: SIMETHICONE PO SCH (08:42)
[2016-08-13] MEDS: MAGNESIUM HYDROXIDE PO SCH (08:42)
[2016-08-13] MEDS: ALUMINUM HYDROXIDE PO SCH (08:42)
[2016-08-13 08:43] VITALS: BP 108/61
[2016-08-13] MEDS: Aluminum Hydroxide/Magnesium Hydroxide/Simethicone Susp 30 ML Cup PO PRN (08:46)
[2016-08-13] MEDS ORDERED: Saccharomyces Boulardii (Probiotic) 250 MG Cap PO SCH (09:00)
[2016-08-13] MEDS ORDERED: Potassium Chloride 20 MEQ Tab.ER PO ONE (09:37)
--- NOTE | 2016-08-17 12:24 | PCM.DCSUM1 ---
<Angie Sullivan - Last Filed: 08/17/16 12:18> Discharge Summary - Hospital Course Free Text/Narrative:: This is an 89 yo elderly white female with significant cardiac hx who comes in with a 3 day hx/o of RLQ pain associated with nausea and decreased appetite. She denies any sick contact, unusual drinks or food, and no recent trauma or surgery. Patient carries a hx/o SBO with focal perforation. She was admitted back in March for similar presentation. At that she was managed medically only. Her initial work up in ED shows a CBS significant for WBC of 23.51 with Neutrophils of 19.89. Her chemistry is remarkable for Na of 135, Cl of 96, BUN 46, Cr of 1.6, BS of 228, Alk PHos 142, and Lipase 54. Her UA shows mild UTI. Her imaging study shows small bowel wall thickening within the lower abdomen similar pattern as prior CT scan with associated pneumatosis intestinalis and extraluminal gas consistent with perforation. Patient was being admitted for medical management of SBO with focal perforation. She is DNR/DNI. She was admitted to ICU initially, kept on IV fluids, IV antibiotics and NPO status. Abdominal films were repeated that showed resolving SBO. Diet was slowly advanced over 2-3 days, tolerated well. She was weak, working with PT/OT, slowly progressing with strength. Once she was eating, tolerating fluids, diuretics were reintroduced- tolerated well aside from mild hypokalemia. Potassium was replaced as needed. Overall she did very well. She is discharged [facility] to continue with PT/OT. She is to follow up with Dr. Brewer in 5-7 days with repeat labs, CBC and BMP prior to her visit. - Discharge Data Discharge Date: 08/13/16 Discharge Disposition: DC/[facility] to [facility] [place] [id number] Condition: Fair - Discharge Diagnosis/Problem(s) (1) Partial small bowel obstruction SNOMED Code(s): 270776952 ICD Code: K56.69 - OTHER INTESTINAL OBSTRUCTION Status: Acute Priority: High (2) Perforated small intestine SNOMED Code(s): 012480266 ICD Code: K63.1 - PERFORATION OF INTESTINE (NONTRAUMATIC) Status: Acute Priority: High (3) Aortic stenosis, severe SNOMED Code(s): 94821344 ICD Code: I35.0 - NONRHEUMATIC AORTIC (VALVE) STENOSIS Status: Chronic Priority: Medium (4) Congestive heart failure SNOMED Code(s): 93969223 ICD Code: I50.9 - HEART FAILURE, UNSPECIFIED Status: Chronic Priority: Medium Qualifiers: Congestive heart failure type: systolic Congestive heart failure chronicity : chronic Qualified Code(s): I50.22 - Chronic systolic (congestive) heart failure (5) Diabetes mellitus type 2 SNOMED Code(s): 02648218 ICD Code: E11.9 - TYPE 2 DIABETES MELLITUS WITHOUT COMPLICATIONS Status: Chronic Priority: Medium (6) Renal insufficiency SNOMED Code(s): 484038683 ICD Code: N28.9 - DISORDER OF KIDNEY AND URETER, UNSPECIFIED Status: Chronic Priority: Medium - Patient Summary/Data Operative Procedure(s) Performed: None Complications: None Consults: Consultations 08/05/16 13:51 Consult to Case Management [CONS] Routine Consult to Theatrical Agent [CONS] Routine Consult to Spiritual Care [CONS] Routine 08/08/16 09:53 Consult to Occupational Therapy [OT Evaluation and Treatment] [CONS] Routine Consult to Physical Therapy [PT Evaluation and Treatment] [CONS] Routine Labs Pending at D/C: None Planned Operative Procedure(s) after DC: None Hospital Course: As above - Patient Instructions Diet: Heart Healthy Diet, Low Sodium Activity: As Tolerated (PT/OT to continue) Driving: Do Not Drive Showering/Bathing: May Shower Notify Provider of: Fever, Increased Pain, Nausea and/or Vomiting - Discharge Plan Prescriptions/Med Rec: Citalopram [Celexa] 10 mg PO DAILY #30 tablet Furosemide [Lasix] 40 mg PO BIDDIURETIC #60 tablet Insulin Aspart [NovoLOG] 0 unit SUBCUT QIDACANDBED #2 pen metroNIDAZOLE [Flagyl] 500 mg PO Q8H #15 tablet Home Medications: Home Meds Fluticasone Propionate [Flonase Allergy Relief] 1 spray INH DAILY 04/22/16 [ History] Isosorbide Mononitrate [Isosorbide Mononitrate ER] 60 mg PO BID 04/22/16 [ History] Losartan [Cozaar] 100 mg PO DAILY 04/22/16 [History] Mag Hydrox/Al Hydrox/Simeth [Alum-Mag Hydroxide-Simeth Liq] 10 ml PO BID 12/01/ 16 [History] Metoprolol Succinate 100 mg PO DAILY 04/22/16 [History] Simvastatin [Zocor] 20 mg PO DAILY 04/22/16 [History] Spironolactone [Aldactone] 25 mg PO DAILY 04/22/16 [History] Pantoprazole Sodium [Protonix] 40 mg PO DAILY #90 tablet. 04/24/16 [Rx] Insulin Glarg,Human.Rec.Analog [LantUS Solostar] 15 units SUBCUT BID 08/05/16 [ History] Citalopram [Celexa] 10 mg PO DAILY #30 tablet 08/12/16 [Rx] Furosemide [Lasix] 40 mg PO BIDDIURETIC #60 tablet 08/12/16 [Rx] Insulin Aspart [NovoLOG] 0 unit SUBCUT QIDACANDBED #2 pen 08/12/16 [Rx] metroNIDAZOLE [Flagyl] 500 mg PO Q8H #15 tablet 08/12/16 [Rx] Patient Handouts: Aortic Valve Stenosis, Small Bowel Obstruction, [id number] , Urinary Tract Infection, Adult, [id number], Heart Failure, [id number] Forms: ED Department Discharge Referrals: Selwyn Brewer MD [Primary Care Provider] - (Please follow up in 1-2 weeks. ) - Discharge Summary/Plan Comment DC Time >30 min.: Yes (40 min) - General Info Date of Service: 08/13/16 Admission Dx/Problem (Free Text: Admission Diagnosis/Problem Admission Diagnosis/Problem Small bowel obstruction Ghislaine is a pleasant 89yo female seen this morning s/p resolving SBO with small perforation medically managed. Diet has been slowly advanced. Regular diet, tolerating well. She denies n/v. No abdominal pain this am, no CP, SOB, MILLER. Strength is slowly improving, she is working with PT/OT. Functional Status: Reports: pain controlled, tolerating diet, ambulating, urinating. Denies: new symptoms - Review of Systems General: Reports: Weakness, Fatigue HEENT: Reports: no symptoms Pulmonary: Reports: no symptoms Cardiovascular: Reports: No Symptoms Gastrointestinal: Reports: No symptoms Genitourinary: Reports: no symptoms Musculoskeletal: Reports: no symptoms Skin: Reports: no symptoms Neurological: Reports: No Symptoms Psychiatric: Reports: no symptoms - Patient Data Vitals - Most Recent: Last Vital Signs Temp 97.9 F 08/13/16 08:42 Pulse 97 08/13/16 08:42 Resp 19 08/13/16 08:42 BP 108/61 08/13/16 08:42 Pulse Ox 95 08/13/16 08:42 Weight - Most Recent: 79.197 kg Med Orders - Current: Current Medications Discontinued Medications Acetaminophen (Tylenol) 650 mg PO Q4H PRN PRN Reason: Pain (Mild 1-3)/fever Acetaminophen (Tylenol) 650 mg PO NOW ONE Stop: 08/12/16 07:46 Last Admin: 08/12/16 08:13 Dose: 650 mg Hydrocodone Bitart/Acetaminophen ([place] 325-5 Mg) 1 tab PO Q4H PRN PRN Reason: Pain (moderate 4-6) Last Admin: 08/12/16 21:19 Dose: 1 tab Al Hydroxide/Mg Hydroxide (Mag-Al Plus) 30 ml PO Q4H PRN PRN Reason: Acid reflux Last Admin: 08/13/16 08:46 Dose: 30 ml Benzocaine/Menthol (Cepacol Sore Throat) 1 lozenge MUCMEM Q4HR PRN PRN Reason: Sore Throat Citalopram Hydrobromide (Celexa) 10 mg PO DAILY [facility] Last Admin: 08/13/16 08:39 Dose: 10 mg Dextrose/Water (Dextrose 50% In Water) 50 ml IVPUSH ASDIRECTED PRN PRN Reason: Hypoglycemia Diatrizoate Meglum/Diatrizoate Sod (Gastrografin 37%) 90 ml PO ONETIME ONE Stop: 08/05/16 04:03 Last Admin: 08/05/16 04:32 Dose: 90 ml Digoxin (Lanoxin) 125 mcg IVPUSH Q4H [facility] Stop: 08/07/16 20:31 Last Admin: 08/07/16 20:43 Dose: 125 mcg Diphenhydramine HCl (Benadryl) Confirm Administered Dose 50 mg .ROUTE .STK-MED ONE Stop: 08/09/16 22:43 Last Admin: 08/09/16 22:48 Dose: Not Given Enoxaparin Sodium (Lovenox) 30 mg SUBCUT DAILY [facility] Last Admin: 08/13/16 08:39 Dose: 30 mg Flunisolide (Nasalide Nasal [place]on) 0 ml NASBOTH DAILY [facility] Last Admin: 08/13/16 08:39 Dose: 2 spray Furosemide (Lasix) 40 mg PO DAILY M[facility]IS Last Admin: 08/11/16 09:01 Dose: 40 mg Furosemide (Lasix) 20 mg IVPUSH NOW ONE Stop: 08/11/16 13:12 Last Admin: 08/11/16 13:53 Dose: 20 mg Furosemide (Lasix) 40 mg PO BIDDIURETIC MORIS Last Admin: 08/13/16 06:27 Dose: 40 mg Hydromorphone HCl (Dilaudid) 0.5 mg IVPUSH ONETIME ONE Stop: 08/05/16 02:35 Last Admin: 08/05/16 02:47 Dose: 0.5 mg Hydromorphone HCl (Dilaudid) 0.5 mg IVPUSH ONETIME ONE Stop: 08/05/16 06:22 Last Admin: 08/05/16 07:04 Dose: 0.5 mg Hydromorphone HCl (Dilaudid) 0.5 mg IVPUSH Q1H PRN PRN Reason: Pain Last Admin: 08/06/16 09:01 Dose: 0.5 mg Hydromorphone HCl (Dilaudid) 0.25 mg IVPUSH Q2H PRN PRN Reason: Pain (severe 7-10) Sodium Chloride (Normal Saline) 1,000 mls @ 125 mls/hr IV ASDIRECTED [facility] Last Admin: 08/05/16 11:34 Dose: 125 mls/hr Sodium Chloride (Normal Saline) 70 mls @ 2 mls/sec IV ASDIRECTED ONE Stop: 08/05/16 04:03 Last Admin: 08/09/16 22:20 Dose: Not Given Levofloxacin/Dextrose 750 mg/ (Premix) 150 mls @ 100 mls/hr IV ONETIME ONE Stop: 08/05/16 07:42 Last Admin: 08/05/16 13:44 Dose: Not Given Metronidazole 500 mg/ Premix 100 mls @ 100 mls/hr IV ONETIME ONE Stop: 08/05/16 07:11 Last Admin: 08/05/16 06:41 Dose: 100 mls/hr Levofloxacin/Dextrose 750 mg/ (Premix) 150 mls @ 100 mls/hr IV ONETIME ONE Stop: 08/05/16 11:29 Last Admin: 08/05/16 10:20 Dose: 100 mls/hr Sodium Chloride (Normal Saline) 1,000 mls @ 125 mls/hr IV ASDIRECTED M[facility]IS Promethazine HCl 12.5 mg/ (Sodium Chloride) 50.5 mls @ 100 mls/hr IV Q6H PRN PRN Reason: Nausea/Vomiting Last Admin: 08/06/16 06:08 Dose: 100 mls/hr Dextrose/Sodium Chloride (Dextrose 5%-1/2 Ns) 1,000 mls @ 125 mls/hr IV ASDIRECTED MORIS Last Admin: 08/10/16 05:43 Dose: 125 mls/hr Levofloxacin/Dextrose 750 mg/ (Premix) 150 mls @ 150 mls/hr IV Q48H [facility] Last Admin: 08/07/16 09:02 Dose: 150 mls/hr Metronidazole 500 mg/ Premix 100 mls @ 100 mls/hr IV Q8H [facility] Last Admin: 08/11/16 06:00 Dose: 100 mls/hr Piperacillin Sod/Tazobactam (Sod 4.5 gm/ Sodium Chloride) 100 mls @ 200 mls/hr IV ONETIME ONE Stop: 08/06/16 10:59 Last Admin: 08/06/16 10:55 Dose: 200 mls/hr Piperacillin Sod/Tazobactam (Sod 4.5 gm/ Sodium Chloride) 100 mls @ 25 mls/hr IV Q8H [facility] Last Admin: 08/11/16 11:30 Dose: 25 mls/hr Dobutamine HCl/Dextrose (Dobutamine In D5w 250 Mg/250 Ml) 250 mg in 250 mls @ 8.66 mls/hr IV TITRATE MORIS; 2 MCG/KG/MIN PRN Reason: Protocol Last Admin: 08/07/16 03:09 Dose: 2 mcg/kg/min, 8.66 mls/hr Dobutamine HCl/Dextrose (Dobutamine In D5w 250 Mg/250 Ml) Confirm Administered Dose 250 mg in 250 mls @ as directed IV .STK-MED ONE Stop: 08/07/16 03:06 Last Admin: 08/07/16 03:53 Dose: Not Given Diltiazem HCl 100 mg/ Sodium (Chloride) 100 mls @ 5 mls/hr IV TITRATE MORIS; 5 MG /HR PRN Reason: Protocol Dobutamine HCl/Dextrose (Dobutamine In D5w 250 Mg/250 Ml) 250 mg in 250 mls @ 8.834 mls/hr IV TITRATE MORIS; 2 MCG/KG/MIN PRN Reason: Protocol Last Admin: 08/07/16 12:02 Dose: 2 mcg/kg/min, 8.834 mls/hr Magnesium Sulfate 2 gm/ Premix 50 mls @ 25 mls/hr IV ONETIME ONE Stop: 08/08/16 12:44 Last Admin: 08/08/16 12:32 Dose: 25 mls/hr Magnesium Sulfate 2 gm/ Premix 50 mls @ 25 mls/hr IV ONETIME ONE Stop: 08/09/16 13:14 Last Admin: 08/09/16 10:30 Dose: 25 mls/hr Magnesium Sulfate 2 gm/ Premix 50 mls @ 25 mls/hr IV ONETIME ONE Stop: 08/11/16 10:44 Last Admin: 08/11/16 08:55 Dose: 25 mls/hr Insulin Aspart (Novolog) 0 unit SUBCUT QIDACANDBED MORIS PRN Reason: Protocol Last Admin: 08/13/16 07:48 Dose: Not Given Iopamidol (Isovue-370 (76%)) 100 ml IVPUSH ONETIME ONE Stop: 08/05/16 04:03 Last Admin: 08/05/16 04:32 Dose: 100 ml Isosorbide Mononitrate (Imdur) 60 mg PO BID [facility] Last Admin: 08/13/16 08:39 Dose: 60 mg Lorazepam (Ativan) 0.5 mg IV Q6H PRN PRN Reason: Anxiety Last Admin: 08/09/16 21:20 Dose: 0.5 mg Losartan Potassium (Cozaar) 100 mg PO DAILY [facility] Last Admin: 08/13/16 08:41 Dose: 100 mg Magnesium Oxide (Magnesium Oxide) 400 mg PO DAILY [facility] Last Admin: 08/13/16 08:39 Dose: 400 mg Magnesium Sulfate (Pharmacy To Dose - Magnesium Replacement) 1 dose .XX ASDIRECTED [facility] Metoprolol Succinate (Toprol Xl) 100 mg PO DAILY [facility] Last Admin: 08/13/16 08:41 Dose: 100 mg Metronidazole (Flagyl) 500 mg PO Q8H [facility] Last Admin: 08/13/16 06:26 Dose: 500 mg Morphine Sulfate (Morphine) Confirm Administered Dose 2 mg .ROUTE .STK-MED ONE Stop: 08/07/16 02:26 Last Admin: 08/07/16 04:02 Dose: Not Given Morphine Sulfate (Morphine) 1 mg IVPUSH ONETIME ONE Stop: 08/07/16 02:34 Last Admin: 08/07/16 02:28 Dose: 1 mg Nitroglycerin (Nitrostat) Confirm Administered Dose 0.4 mg .ROUTE .STK-MED ONE Stop: 08/07/16 01:51 Last Admin: 08/07/16 05:43 Dose: Not Given Nitroglycerin (Nitrostat) 0.4 mg SL Q5M PRN PRN Reason: Chest Pain Stop: 08/07/16 02:01 Nitroglycerin (Nitrostat) 0.4 mg SL Q5M STA Stop: 08/07/16 01:47 Last Admin: 08/07/16 01:57 Dose: 0.4 mg Ondansetron HCl (Zofran) 4 mg IVPUSH ONETIME ONE Stop: 08/05/16 02:33 Last Admin: 08/05/16 02:48 Dose: 4 mg Ondansetron HCl (Zofran) 4 mg IVPUSH Q6HR PRN PRN Reason: NAUSEA Last Admin: 08/13/16 02:12 Dose: 4 mg Ondansetron HCl (Zofran) 4 mg IV Q6H PRN PRN Reason: Nausea/Vomiting Pantoprazole Sodium (Protonix Iv) 40 mg IV Q12HR [facility] Last Admin: 08/07/16 08:37 Dose: 40 mg Pantoprazole Sodium (Protonix) 40 mg PO DAILY [facility] Last Admin: 08/13/16 08:39 Dose: 40 mg Alum Hydrox/Mag (Hydrox/Simeth 10 Ml) 0 each PO BID [facility] Last Admin: 08/13/16 08:42 Dose: Not Given Potassium Chloride (Pharmacy To Dose - Potassium Replacement) 1 dose .XX ASDIRECTED [facility] Potassium Chloride (Klor-Con M20) 20 meq PO Q3H [facility] Stop: 08/08/16 13:46 Last Admin: 08/08/16 13:31 Dose: 20 meq Potassium Chloride (Klor-Con M20) 20 meq PO Q3H [facility] Stop: 08/09/16 14:16 Last Admin: 08/09/16 15:06 Dose: 20 meq Potassium Chloride (Klor-Con M20) 20 meq PO TID [facility] Last Admin: 08/13/16 08:39 Dose: 20 meq Potassium Chloride (Klor-Con M20) 20 meq PO ONETIME ONE Stop: 08/13/16 09:38 Last Admin: 08/13/16 10:20 Dose: 20 meq Saccharomyces Boulardii (Florastor) 250 mg PO BID [facility] Last Admin: 08/12/16 08:14 Dose: 250 mg Saccharomyces Boulardii (Florastor) 250 mg PO DAILY [facility] Last Admin: 08/13/16 08:39 Dose: 250 mg Scopolamine (Transderm-Scop) 1.5 mg TOP ONETIME ONE Stop: 08/07/16 03:00 Last Admin: 08/07/16 03:16 Dose: 1.5 mg Simvastatin (Zocor) 20 mg PO DAILY [facility] Last Admin: 08/13/16 08:39 Dose: 20 mg Sodium Chloride (Saline Flush) 10 ml FLUSH ASDIRECTED PRN PRN Reason: Keep Vein Open Last Admin: 08/05/16 02:49 Dose: 10 ml Spironolactone (Aldactone) 25 mg PO DAILY [facility] Last Admin: 08/13/16 08:39 Dose: 25 mg Temazepam (Restoril) 15 mg PO BEDTIME PRN PRN Reason: Insomnia Last Admin: 08/11/16 21:35 Dose: 15 mg - Exam Quality Assessment: Reports: DVT prophylaxis General: Reports: alert, oriented, cooperative, no acute distress HEENT: Reports: Pupils equal, Pupils reactive, EOMI, Mucous membr. moist/pink Neck: Reports: supple Lungs: Reports: Clear to auscultation, Normal respiratory effort, Decreased breath sounds (to bases) Cardiovascular: Reports: Regular Rate, Regular Rhythm, Murmurs (grade 2-3 systolic) Abdomen: Reports: bowel sounds present, soft, no tenderness, no distension (Female) Exam: Deferred Rectal (Female) Exam: Deferred Extremities: Reports: edema (trace to ankles bilat) Neurological: Reports: no new focal deficit Psy/Mental Status: Reports: alert, normal affect, normal mood *Q Meaningful Use (DIS) - VTE *Q VTE Criteria *Q: - Stroke *Q Stroke Criteria *Q: - AMI *Q AMI Criteria *Q: <Fatoumata Mendez - Last Filed: 08/17/16 13:36> Discharge Summary - Hospital Course Free Text/Narrative:: See above, return to SNF. - Patient Summary/Data Consults: Consultations 08/05/16 13:51 Consult to Case Management [CONS] Routine Consult to Theatrical Agent [CONS] Routine Consult to Spiritual Care [CONS] Routine 08/08/16 09:53 Consult to Occupational Therapy [OT Evaluation and Treatment] [CONS] Routine Consult to Physical Therapy [PT Evaluation and Treatment] [CONS] Routine - Patient Data Vitals - Most Recent: Last Vital Signs Temp 36.6 C 08/13/16 08:42 Pulse 97 08/13/16 08:42 Resp 19 08/13/16 08:42 BP 108/61 08/13/16 08:42 Pulse Ox 95 08/13/16 08:42 Med Orders - Current: Current Medications Discontinued Medications Acetaminophen (Tylenol) 650 mg PO Q4H PRN PRN Reason: Pain (Mild 1-3)/fever Acetaminophen (Tylenol) 650 mg PO NOW ONE Stop: 08/12/16 07:46 Last Admin: 08/12/16 08:13 Dose: 650 mg Hydrocodone Bitart/Acetaminophen ([place] 325-5 Mg) 1 tab PO Q4H PRN PRN Reason: Pain (moderate 4-6) Last Admin: 08/12/16 21:19 Dose: 1 tab Al Hydroxide/Mg Hydroxide (Mag-Al Plus) 30 ml PO Q4H PRN PRN Reason: Acid reflux Last Admin: 08/13/16 08:46 Dose: 30 ml Benzocaine/Menthol (Cepacol Sore Throat) 1 lozenge MUCMEM Q4HR PRN PRN Reason: Sore Throat Citalopram Hydrobromide (Celexa) 10 mg PO DAILY [facility] Last Admin: 08/13/16 08:39 Dose: 10 mg Dextrose/Water (Dextrose 50% In Water) 50 ml IVPUSH ASDIRECTED PRN PRN Reason: Hypoglycemia Diatrizoate Meglum/Diatrizoate Sod (Gastrografin 37%) 90 ml PO ONETIME ONE Stop: 08/05/16 04:03 Last Admin: 08/05/16 04:32 Dose: 90 ml Digoxin (Lanoxin) 125 mcg IVPUSH Q4H [facility] Stop: 08/07/16 20:31 Last Admin: 08/07/16 20:43 Dose: 125 mcg Diphenhydramine HCl (Benadryl) Confirm Administered Dose 50 mg .ROUTE .STK-MED ONE Stop: 08/09/16 22:43 Last Admin: 08/09/16 22:48 Dose: Not Given Enoxaparin Sodium (Lovenox) 30 mg SUBCUT DAILY [facility] Last Admin: 08/13/16 08:39 Dose: 30 mg Flunisolide (Nasalide Nasal [place]) 0 ml NASBOTH DAILY [facility] Last Admin: 08/13/16 08:39 Dose: 2 spray Furosemide (Lasix) 40 mg PO DAILY [facility] Last Admin: 08/11/16 09:01 Dose: 40 mg Furosemide (Lasix) 20 mg IVPUSH NOW ONE Stop: 08/11/16 13:12 Last Admin: 08/11/16 13:53 Dose: 20 mg Furosemide (Lasix) 40 mg PO BIDDIURETIC [facility] Last Admin: 08/13/16 06:27 Dose: 40 mg Hydromorphone HCl (Dilaudid) 0.5 mg IVPUSH ONETIME ONE Stop: 08/05/16 02:35 Last Admin: 08/05/16 02:47 Dose: 0.5 mg Hydromorphone HCl (Dilaudid) 0.5 mg IVPUSH ONETIME ONE Stop: 08/05/16 06:22 Last Admin: 08/05/16 07:04 Dose: 0.5 mg Hydromorphone HCl (Dilaudid) 0.5 mg IVPUSH Q1H PRN PRN Reason: Pain Last Admin: 08/06/16 09:01 Dose: 0.5 mg Hydromorphone HCl (Dilaudid) 0.25 mg IVPUSH Q2H PRN PRN Reason: Pain (severe 7-10) Sodium Chloride (Normal Saline) 1,000 mls @ 125 mls/hr IV ASDIRECTED [facility] Last Admin: 08/05/16 11:34 Dose: 125 mls/hr Sodium Chloride (Normal Saline) 70 mls @ 2 mls/sec IV ASDIRECTED ONE Stop: 08/05/16 04:03 Last Admin: 08/09/16 22:20 Dose: Not Given Levofloxacin/Dextrose 750 mg/ (Premix) 150 mls @ 100 mls/hr IV ONETIME ONE Stop: 08/05/16 07:42 Last Admin: 08/05/16 13:44 Dose: Not Given Metronidazole 500 mg/ Premix 100 mls @ 100 mls/hr IV ONETIME ONE Stop: 08/05/16 07:11 Last Admin: 08/05/16 06:41 Dose: 100 mls/hr Levofloxacin/Dextrose 750 mg/ (Premix) 150 mls @ 100 mls/hr IV ONETIME ONE Stop: 08/05/16 11:29 Last Admin: 08/05/16 10:20 Dose: 100 mls/hr Sodium Chloride (Normal Saline) 1,000 mls @ 125 mls/hr IV ASDIRECTED [facility] Promethazine HCl 12.5 mg/ (Sodium Chloride) 50.5 mls @ 100 mls/hr IV Q6H PRN PRN Reason: Nausea/Vomiting Last Admin: 08/06/16 06:08 Dose: 100 mls/hr Dextrose/Sodium Chloride (Dextrose 5%-1/2 Ns) 1,000 mls @ 125 mls/hr IV ASDIRECTED [facility] Last Admin: 08/10/16 05:43 Dose: 125 mls/hr Levofloxacin/Dextrose 750 mg/ (Premix) 150 mls @ 150 mls/hr IV Q48H [facility] Last Admin: 08/07/16 09:02 Dose: 150 mls/hr Metronidazole 500 mg/ Premix 100 mls @ 100 mls/hr IV Q8H [facility] Last Admin: 08/11/16 06:00 Dose: 100 mls/hr Piperacillin Sod/Tazobactam (Sod 4.5 gm/ Sodium Chloride) 100 mls @ 200 mls/hr IV ONETIME ONE Stop: 08/06/16 10:59 Last Admin: 08/06/16 10:55 Dose: 200 mls/hr Piperacillin Sod/Tazobactam (Sod 4.5 gm/ Sodium Chloride) 100 mls @ 25 mls/hr IV Q8H [facility] Last Admin: 08/11/16 11:30 Dose: 25 mls/hr Dobutamine HCl/Dextrose (Dobutamine In D5w 250 Mg/250 Ml) 250 mg in 250 mls @ 8.66 mls/hr IV TITRATE MORIS; 2 MCG/KG/MIN PRN Reason: Protocol Last Admin: 08/07/16 03:09 Dose: 2 mcg/kg/min, 8.66 mls/hr Dobutamine HCl/Dextrose (Dobutamine In D5w 250 Mg/250 Ml) Confirm Administered Dose 250 mg in 250 mls @ as directed IV .STK-MED ONE Stop: 08/07/16 03:06 Last Admin: 08/07/16 03:53 Dose: Not Given Diltiazem HCl 100 mg/ Sodium (Chloride) 100 mls @ 5 mls/hr IV TITRATE MORIS; 5 MG /HR PRN Reason: Protocol Dobutamine HCl/Dextrose (Dobutamine In D5w 250 Mg/250 Ml) 250 mg in 250 mls @ 8.834 mls/hr IV TITRATE MORIS; 2 MCG/KG/MIN PRN Reason: Protocol Last Admin: 08/07/16 12:02 Dose: 2 mcg/kg/min, 8.834 mls/hr Magnesium Sulfate 2 gm/ Premix 50 mls @ 25 mls/hr IV ONETIME ONE Stop: 08/08/16 12:44 Last Admin: 08/08/16 12:32 Dose: 25 mls/hr Magnesium Sulfate 2 gm/ Premix 50 mls @ 25 mls/hr IV ONETIME ONE Stop: 08/09/16 13:14 Last Admin: 08/09/16 10:30 Dose: 25 mls/hr Magnesium Sulfate 2 gm/ Premix 50 mls @ 25 mls/hr IV ONETIME ONE Stop: 08/11/16 10:44 Last Admin: 08/11/16 08:55 Dose: 25 mls/hr Insulin Aspart (Novolog) 0 unit SUBCUT QIDACANDBED MORIS PRN Reason: Protocol Last Admin: 08/13/16 07:48 Dose: Not Given Iopamidol (Isovue-370 (76%)) 100 ml IVPUSH ONETIME ONE Stop: 08/05/16 04:03 Last Admin: 08/05/16 04:32 Dose: 100 ml Isosorbide Mononitrate (Imdur) 60 mg PO BID [facility] Last Admin: 08/13/16 08:39 Dose: 60 mg Lorazepam (Ativan) 0.5 mg IV Q6H PRN PRN Reason: Anxiety Last Admin: 08/09/16 21:20 Dose: 0.5 mg Losartan Potassium (Cozaar) 100 mg PO DAILY [facility] Last Admin: 08/13/16 08:41 Dose: 100 mg Magnesium Oxide (Magnesium Oxide) 400 mg PO DAILY [facility] Last Admin: 08/13/16 08:39 Dose: 400 mg Magnesium Sulfate (Pharmacy To Dose - Magnesium Replacement) 1 dose .XX ASDIRECTED [facility] Metoprolol Succinate (Toprol Xl) 100 mg PO DAILY [facility] Last Admin: 08/13/16 08:41 Dose: 100 mg Metronidazole (Flagyl) 500 mg PO Q8H [facility] Last Admin: 08/13/16 06:26 Dose: 500 mg Morphine Sulfate (Morphine) Confirm Administered Dose 2 mg .ROUTE .STK-MED ONE Stop: 08/07/16 02:26 Last Admin: 08/07/16 04:02 Dose: Not Given Morphine Sulfate (Morphine) 1 mg IVPUSH ONETIME ONE Stop: 08/07/16 02:34 Last Admin: 08/07/16 02:28 Dose: 1 mg Nitroglycerin (Nitrostat) Confirm Administered Dose 0.4 mg .ROUTE .STK-MED ONE Stop: 08/07/16 01:51 Last Admin: 08/07/16 05:43 Dose: Not Given Nitroglycerin (Nitrostat) 0.4 mg SL Q5M PRN PRN Reason: Chest Pain Stop: 08/07/16 02:01 Nitroglycerin (Nitrostat) 0.4 mg SL Q5M STA Stop: 08/07/16 01:47 Last Admin: 08/07/16 01:57 Dose: 0.4 mg Ondansetron HCl (Zofran) 4 mg IVPUSH ONETIME ONE Stop: 08/05/16 02:33 Last Admin: 08/05/16 02:48 Dose: 4 mg Ondansetron HCl (Zofran) 4 mg IVPUSH Q6HR PRN PRN Reason: NAUSEA Last Admin: 08/13/16 02:12 Dose: 4 mg Ondansetron HCl (Zofran) 4 mg IV Q6H PRN PRN Reason: Nausea/Vomiting Pantoprazole Sodium (Protonix Iv) 40 mg IV Q12HR [facility] Last Admin: 08/07/16 08:37 Dose: 40 mg Pantoprazole Sodium (Protonix) 40 mg PO DAILY [facility] Last Admin: 08/13/16 08:39 Dose: 40 mg Alum Hydrox/Mag (Hydrox/Simeth 10 Ml) 0 each PO BID [facility] Last Admin: 08/13/16 08:42 Dose: Not Given Potassium Chloride (Pharmacy To Dose - Potassium Replacement) 1 dose .XX ASDIRECTED [facility] Potassium Chloride (Klor-Con M20) 20 meq PO Q3H [facility] Stop: 08/08/16 13:46 Last Admin: 08/08/16 13:31 Dose: 20 meq Potassium Chloride (Klor-Con M20) 20 meq PO Q3H [facility] Stop: 08/09/16 14:16 Last Admin: 08/09/16 15:06 Dose: 20 meq Potassium Chloride (Klor-Con M20) 20 meq PO TID [facility] Last Admin: 08/13/16 08:39 Dose: 20 meq Potassium Chloride (Klor-Con M20) 20 meq PO ONETIME ONE Stop: 08/13/16 09:38 Last Admin: 08/13/16 10:20 Dose: 20 meq Saccharomyces Boulardii (Florastor) 250 mg PO BID [facility] Last Admin: 08/12/16 08:14 Dose: 250 mg Saccharomyces Boulardii (Florastor) 250 mg PO DAILY [facility] Last Admin: 08/13/16 08:39 Dose: 250 mg Scopolamine (Transderm-Scop) 1.5 mg TOP ONETIME ONE Stop: 08/07/16 03:00 Last Admin: 08/07/16 03:16 Dose: 1.5 mg Simvastatin (Zocor) 20 mg PO DAILY [facility] Last Admin: 08/13/16 08:39 Dose: 20 mg Sodium Chloride (Saline Flush) 10 ml FLUSH ASDIRECTED PRN PRN Reason: Keep Vein Open Last Admin: 08/05/16 02:49 Dose: 10 ml Spironolactone (Aldactone) 25 mg PO DAILY [facility] Last Admin: 08/13/16 08:39 Dose: 25 mg Temazepam (Restoril) 15 mg PO BEDTIME PRN PRN Reason: Insomnia Last Admin: 08/11/16 21:35 Dose: 15 mg *Q Meaningful Use (DIS) - VTE *Q VTE Criteria *Q: - Stroke *Q Stroke Criteria *Q: - AMI *Q AMI Criteria *Q:
== END 2016-08-13 11:00 | DRG 388 ==
LOC: JD.ED 02:16 → JD.ICU 06:42 → JD.MS 08-06 17:40 → JD.ICU 08-07 02:51 → JD.MS 08-08 13:14
PROVIDERS: ADMIT Internal Medicine; ATTEND Internal Medicine
DX: K56.60 Unspecified intestinal obstruction (principal); K56.69 Other intestinal obstruction; K63.1 Perforation of intestine (nontraumatic); N39.0 Urinary tract infection, site not specified; I11.0 Hypertensive heart disease with heart failure; I50.9 Heart failure, unspecified; I47.1 Supraventricular tachycardia; E78.00 Pure hypercholesterolemia, unspecified; R18.8 Other ascites; I13.0 Hypertensive heart and chronic kidney disease with heart failure and stage 1 through stage 4 chronic kidney disease, or unspecified chronic kidney disease; I50.22 Chronic systolic (congestive) heart failure; K52.9 Noninfective gastroenteritis and colitis, unspecified; K63.89 Other specified diseases of intestine; I35.0 Nonrheumatic aortic (valve) stenosis; K76.0 Fatty (change of) liver, not elsewhere classified; I95.9 Hypotension, unspecified; I20.9 Angina pectoris, unspecified; E83.42 Hypomagnesemia; J02.9 Acute pharyngitis, unspecified; E87.6 Hypokalemia; N31.9 Neuromuscular dysfunction of bladder, unspecified; R33.9 Retention of urine, unspecified; I25.10 Atherosclerotic heart disease of native coronary artery without angina pectoris; N18.3 Chronic kidney disease, stage 3 (moderate); Z87.891 Personal history of nicotine dependence; E78.5 Hyperlipidemia, unspecified; I25.2 Old myocardial infarction; K21.9 Gastro-esophageal reflux disease without esophagitis; M19.90 Unspecified osteoarthritis, unspecified site; E11.9 Type 2 diabetes mellitus without complications; Z79.4 Long term (current) use of insulin; F32.9 Major depressive disorder, single episode, unspecified; F41.9 Anxiety disorder, unspecified; H91.90 Unspecified hearing loss, unspecified ear; Z79.01 Long term (current) use of anticoagulants; Z79.899 Other long term (current) drug therapy; Z88.1 Allergy status to other antibiotic agents; Z88.8 Allergy status to other drugs, medicaments and biological substances; Z91.038 Other insect allergy status
CPT/HCPCS: 36415; 74177; 80053; 83690; 85025; 96361; 96365; 96375; 99285; J1170; J2405; J7040; J7050; Q9963; Q9967; 71010; 71010-26; 74176; 74176-26; 80048; 81001; 82553; 82962; 83540; 83735; 83880; 84466; 84484; 86140; 87081; 87086; 87430; 93005; 94667; 96376; 97110-GO; 97110-GP; 97116-GP; 97161-GP; 97162-GP; 97166-GO; 97530-GO; 97530-GP; 99222; 99232; A9270-GY; C9113; J1160; J1250; J1650; J1815-GY; J1940; J1956; J2060; J2270; J2543; J2550; J3475; J7030; J7042